=== PATIENT | female | born 1955 | race Caucasian/White ===

== ENCOUNTER 2017-05-18 17:44 | Inpatient (IN) | payer BC ==
[2017-05-18] MEDS ORDERED: ASPIRIN 81 MG CHEW PO STA (18:05)
[2017-05-18] MEDS ORDERED: ONDANSETRON 4 MG/2 ML VIAL IVP STA (18:09)
[2017-05-18] MEDS ORDERED: MORPHINE SULFATE 4 MG/ML SYRINGE IV STA (18:09)
[2017-05-18 19:03] LABS: ALT 29 U/L (9-52); AST 26 U/L (14-36); Alkaline Phosphatase 143 U/L (38-126); Anion Gap 9 mmol/L; Blood Urea Nitrogen 13 mg/dL (7-17); Carbon Dioxide 27 mmol/L (22-30); Chloride 100 mmol/L (98-107); Glucose 106 mg/dL (74-99); Magnesium 1.8 mg/dL (1.6-2.3); Non-African American GFR(MDRD) >60 (>60 ml/min/1.73 sqM); Potassium 3.7 mmol/L (3.5-5.1); Sodium 136 mmol/L (137-145); Total Bilirubin 0.8 mg/dL (0.2-1.3); Total Protein 7.6 g/dL (6.3-8.2)
[2017-05-18 19:05] LABS: INR 1.2 (<1.2); Partial Thromboplastin Time 25.1 sec (22.0-30.0); Prothrombin Time 11.7 sec (9.0-12.0)
[2017-05-18 19:14] LABS: Basophils # (A) 0.1 k/uL (0-0.2); Basophils % (A) 1 %; CH 33.1; CHCM 33.1; Eosinophils # (A) 0.1 k/uL (0-0.7); Eosinophils % (A) 1 %; HCT 48.5 % (34.0-46.0); HDW 2.86; HGB 15.9 gm/dL (11.4-16.0); Luc # (Auto) 0.34; Luc % (Auto) 3; Lymphocytes # (A) 3.1 k/uL (1.0-4.8); Lymphocytes % (A) 24 %; MCH 33.1 pg (25.0-35.0); MCHC 32.9 g/dL (31.0-37.0); MCV 100.6 fL (80.0-100.0); Macrocytosis Slight; Monocytes # (A) 0.7 k/uL (0-1.0); Monocytes % (A) 5 %; Neutrophils # (A) 8.6 k/uL (1.3-7.7); Neutrophils % (A) 67 %; RBC 4.82 m/uL (3.80-5.40); WBC (Perox) 12.48
--- NOTE | 2017-05-18 19:19 | XR ---
EXAMINATION TYPE: XR chest 3V DATE OF EXAM: 05/18/2017 COMPARISON: NONE HISTORY: Pain TECHNIQUE: Frontal and lateral views of the chest are obtained. FINDINGS: There is no focal air space opacity, pleural effusion, or pneumothorax seen. The cardiac silhouette size is within normal limits. The osseous structures are intact. IMPRESSION: No acute cardiopulmonary process.
--- NOTE | 2017-05-18 19:34 | US ---
EXAMINATION TYPE: US venous doppler duplex LE DATE OF EXAM: 05/18/2017 7:23 PM COMPARISON: NONE CLINICAL HISTORY: Pain. Right ankle swelling recent long road trip. SIDE PERFORMED: Bilateral TECHNIQUE: The lower extremity deep venous system is examined utilizing real time linear array sonog niels with graded compression, doppler sonography and color-flow sonography. VESSELS IMAGED: External Iliac Vein (EIV) Common Femoral Vein Deep Femoral Vein Greater Saphenous Vein * Femoral Vein Popliteal Vein Small Saphenous Vein * Proximal Calf Veins (* superficial vessels) FINDINGS: Grayscale, color doppler, spectral doppler imaging performed of the deep veins of the lower extremities. On the right, there are filling defects within the external iliac vein and the common femoral vein, w ith the remainder of the right-sided vessels demonstrating normal flow, compressibility, and vascular waveforms. On the left, there is normal flow, compressibility, vascular waveforms. IMPRESSION: RIGHT LOWER EXTREMITY: POSITIVE FOR DVT. LEFT LOWER EXTREMITY: NEGATIVE FOR DVT.
[2017-05-18] MEDS ORDERED: ONDANSETRON 4 MG/2 ML VIAL IVP PRN (20:43)
[2017-05-18] MEDS ORDERED: NALOXONE 0.4 MG/ML 1 ML VIAL IV PRN (20:43)
--- NOTE | 2017-05-18 20:43 | ED ---
Chest Pain HPI - General Chief Complaint: Chest Pain Stated Complaint: sent by for heart workup Time Seen by Provider: 05/18/17 18:05 Source: patient Mode of arrival: ambulatory Limitations: no limitations - History of Present Illness Initial Comments: Patient complains of chest pain. She also has right leg pain. Her symptoms have been getting worse for 2 days. Nothing makes her symptoms better or worse. She has taken no specific medication for this. She has no lightheadedness or dizziness. She has no nausea or vomiting. She has no shortness of breath. She has had no syncopal or presyncope. She has had no long plane or cards. The chest pain is substernal. It does not radiate into her. She has no nausea or vomiting. She has no dyspnea. - Related Data Home Medications Medication Instructions Recorded Confirmed ALPRAZolam [ALPRAZolam] 0.5 mg PO TID PRN 10/30/14 05/18/17 Atorvastatin [Lipitor] 10 mg PO DAILY 10/30/14 05/18/17 Celecoxib [CeleBREX] 200 mg PO DAILY 10/30/14 05/18/17 FLUoxetine HCL [FLUoxetine HCL] 40 mg PO DAILY 10/30/14 05/18/17 Folic Acid 1 mg PO DAILY 10/30/14 05/18/17 Hydrocodone/Acetaminophen 1 tab PO Q4H PRN 10/30/14 05/18/17 [Hydrocodone/Acetaminophen 10-325] Methotrexate Sodium [Methotrexate] 15 mg PO FR 10/30/14 05/18/17 Omeprazole [PriLOSEC] 20 mg PO AC-BID 10/30/14 05/18/17 amLODIPine BESYLATE [Amlodipine 10 mg PO DAILY 10/30/14 05/18/17 Besylate] Atenolol [Tenormin] 25 mg PO DAILY 05/18/17 05/18/17 Cyclobenzaprine [Flexeril] 10 mg PO HS PRN 05/18/17 05/18/17 Dicyclomine [Bentyl] 10 mg PO TID PRN 05/18/17 05/18/17 Diphenoxylate HCl/Atropine 1 tab PO BID PRN 05/18/17 05/18/17 [Lomotil 2.5-0.025 mg Tablet] Sucralfate [Carafate] 1 gm PO QID 05/18/17 05/18/17 Temazepam [Restoril] 15 mg PO HS 05/18/17 05/18/17 Allergies Allergy/AdvReac Type Severity Reaction Status Date / Time No Known Allergies Allergy Verified 05/18/17 19:41 Review of Systems ROS Statement: Those systems with pertinent positive or pertinent negative responses have been documented in the HPI. ROS Other: All systems not noted in ROS Statement are negative. EKG Findings - EKG Comments: EKG Findings:: twelve-lead EKG interpreted by me showing ventricular rate 85 bpm , normal VA interval and Galo complex, no ST elevation or depression, interpreted by me as normal sinus rhythm. Past Medical History Past Medical History: GERD/Reflux, Hyperlipidemia, Hypertension, Musculoskeletal Disorder, Rheumatoid Arthritis (RA) Additional Past Medical History / Comment(s): RA History of Any Multi-Drug Resistant Organisms: None Reported Past Surgical History: Adenoidectomy, Appendectomy, Cholecystectomy, Tonsillectomy, Tubal Ligation Additional Past Surgical History / Comment(s): COLONOSCOPY. EGD. D & C X 5. RT OVARY REMOVED Past Anesthesia/Blood Transfusion Reactions: Motion Sickness, Postoperative Nausea & Vomiting (PONV) Past Psychological History: Depression Smoking Status: Former smoker Past Alcohol Use History: None Reported Past Drug Use History: None Reported - Past Family History Mother Family Medical History: Cancer Additional Family Medical History / Comment(s): LEUKEMIA General Exam Limitations: no limitations Course Vital Signs 05/18/17 17:59 Temperature 98.8 F Pulse Rate 103 H Respiratory 18 Rate Blood Pressure 147/93 O2 Sat by Pulse 96 Oximetry Chest Pain MDM - MDM patient complains of chest pain, leg pain. Duplex of the right leg is positive for DVT. I ordered IV heparin. Patient will be admitted to the hospital. Disposition Clinical Impression: Chest pain, DVT (deep venous thrombosis) Disposition: ADMITTED IP TO THIS HOSP Condition: Fair Referrals: Romel Pham MD [Primary Care Provider] - 1-2 days Time of Disposition: 20:42
[2017-05-18] MEDS ORDERED: DIPHENOX-ATROP 2.5-0.025 MG 1 EACH TAB PO PRN (20:44)
[2017-05-18] MEDS ORDERED: DICYCLOMINE 10 MG CAP PO PRN (20:44)
[2017-05-18] MEDS ORDERED: ALPRAZolam 0.5 MG TAB PO PRN (20:44)
[2017-05-18] MEDS ORDERED: FAMOTIDINE 20 MG TAB PO ONE (21:15)
[2017-05-18] MEDS: HYDROcodone/APAP 10-325MG 1 EACH TAB PO PRN (21:59)
[2017-05-18] MEDS: FAMOTIDINE 20 MG TAB PO SCH (21:59)
[2017-05-18] MEDS: TEMAZEPAM 15 MG CAP PO SCH (21:59)
[2017-05-18] MEDS: HEPARIN SODIUM,PORCINE/D5W PMX 25,000 UNIT in DEXTROSE/WATER 1 500ML.BAG IV SCH (22:20)
[2017-05-19 01:56] VITALS: BMI 26.1
[2017-05-19] MEDS: SUCRALFATE 1 GM TAB PO SCH ×5 (02:04→21:54)
[2017-05-19] MEDS: HYDROcodone/APAP 10-325MG 1 EACH TAB PO PRN ×5 (02:07→21:54)
[2017-05-19 06:12] LABS: Basophils # (A) 0.1 k/uL (0-0.2); Basophils % (A) 1 %; CH 34.3; Eosinophils # (A) 0.1 k/uL (0-0.7); Eosinophils % (A) 1 %; HCT 35.7 % (34.0-46.0); HDW 2.85; Luc # (Auto) 0.28; Luc % (Auto) 2; Lymphocytes # (A) 3.6 k/uL (1.0-4.8); Lymphocytes % (A) 31 %; MCH 33.5 pg (25.0-35.0); MCV 101.6 fL (80.0-100.0); Macrocytosis Slight; Mean Platelet Volume 7.4; Monocytes # (A) 0.7 k/uL (0-1.0); Monocytes % (A) 6 %; Neutrophils # (A) 6.6 k/uL (1.3-7.7); Neutrophils % (A) 58 %; RBC 3.51 m/uL (3.80-5.40); RDW 15.6 % (11.5-15.5); WBC 11.5 k/uL (3.8-10.6); WBC (Perox) 12.22
[2017-05-19 06:21] LABS: Anion Gap 6 mmol/L; Blood Urea Nitrogen 11 mg/dL (7-17); Calcium 8.3 mg/dL (8.4-10.2); Carbon Dioxide 25 mmol/L (22-30); Chloride 105 mmol/L (98-107); Glucose 76 mg/dL (74-99); Non-African American GFR(MDRD) >60 (>60 ml/min/1.73 sqM); Potassium 3.7 mmol/L (3.5-5.1); Sodium 136 mmol/L (137-145)
[2017-05-19 06:23] LABS: HGB 11.8 gm/dL (11.4-16.0)
[2017-05-19] MEDS ORDERED: RX INFO: IV CONTRAST WAS GIVEN 1 EACH MISC MISCELLANE PRN ×2 (08:44→17:10)
[2017-05-19] MEDS: ATENOLOL 25 MG TAB PO SCH (08:49)
[2017-05-19] MEDS: amLODIPine 10 MG TAB PO SCH (08:50)
[2017-05-19] MEDS: FLUoxetine HCL 20 MG CAP PO SCH (08:50)
[2017-05-19] MEDS: ATORVASTATIN 10 MG TAB PO SCH (08:50)
[2017-05-19] MEDS: FOLIC ACID 1 MG TAB PO SCH (08:50)
[2017-05-19] MEDS: FAMOTIDINE 20 MG TAB PO SCH ×2 (08:52→20:26)
[2017-05-19] MEDS ORDERED: METHOTREXATE SODIUM 2.5 MG TAB PO SCH (09:00)
--- NOTE | 2017-05-19 09:03 | P.CRDCN ---
History of Present Illness Consult date: 05/19/17 Consult reason: chest pain History of present illness: 61-year-old lady with history of hypertension and rheumatoid arthritis comes to hospital with symptoms of chest pain she states that she is becoming progressively fatigued and tired and has had pleuritic-type chest pain. It is mild to moderate intensity comes on with rest and gets worse with deep breathing. She comes in and had been diagnosed with DVT of the right leg. Cardiac enzymes have been negative and EKG does not reveal acute ischemic changes. I believe patient chest chest pain may be related to pulmonary embolism hence I'm going to obtain a computed tomography scan of the chest. I will obtain a 2-D echo to assess LV function and size. Patient will either start Coumadin R one of the normal anticoagulants if he is covered. Review of Systems Constitutional: Denies chills. Denies fever. Eyes: Denies blurred vision. Denies pain. Ears, nose, mouth and throat: Denies headache. Denies sore throat. Cardiovascular: Denies chest pain. Has shortness of breath. Respiratory: Denies cough. Pleuritic chest pain Gastrointestinal: Denies abdominal pain. Denies diarrhea. Denies nausea. Denies vomiting. Musculoskeletal: Denies myalgias. Integumentary: Denies pruritus. Denies rash. Neurological: Denies numbness. Denies weakness. Psychiatric: Denies anxiety. Denies depression. Endocrine: Denies fatigue. Denies weight change. Genitourinary: Denies burning, hematuria, frequency of urination. Hematological: No anemia or excess bleeding. Past Medical History Past Medical History: GERD/Reflux, Hyperlipidemia, Hypertension, Rheumatoid Arthritis (RA) Additional Past Medical History / Comment(s): RA History of Any Multi-Drug Resistant Organisms: None Reported Past Surgical History: Adenoidectomy, Appendectomy, Cholecystectomy, Tonsillectomy, Tubal Ligation Additional Past Surgical History / Comment(s): COLONOSCOPY. EGD. D & C X 5. RT OVARY REMOVED Past Anesthesia/Blood Transfusion Reactions: Motion Sickness, Postoperative Nausea & Vomiting (PONV) Past Psychological History: Depression Smoking Status: Former smoker Past Alcohol Use History: None Reported Past Drug Use History: None Reported - Past Family History Mother Family Medical History: Cancer Additional Family Medical History / Comment(s): LEUKEMIA Medications and Allergies Home Medications Medication Instructions Recorded Confirmed Type ALPRAZolam [ALPRAZolam] 0.5 mg PO TID PRN 10/30/14 05/18/17 History Atorvastatin [Lipitor] 10 mg PO DAILY 10/30/14 05/18/17 History Celecoxib [CeleBREX] 200 mg PO DAILY 10/30/14 05/18/17 History FLUoxetine HCL [FLUoxetine HCL] 40 mg PO DAILY 10/30/14 05/18/17 History Folic Acid 1 mg PO DAILY 10/30/14 05/18/17 History Hydrocodone/Acetaminophen 1 tab PO Q4H PRN 10/30/14 05/18/17 History [Hydrocodone/Acetaminophen 10-325] Methotrexate Sodium [Methotrexate] 15 mg PO FR 10/30/14 05/18/17 History Omeprazole [PriLOSEC] 20 mg PO AC-BID 10/30/14 05/18/17 History amLODIPine BESYLATE [Amlodipine 10 mg PO DAILY 10/30/14 05/18/17 History Besylate] Atenolol [Tenormin] 25 mg PO DAILY 05/18/17 05/18/17 History Cyclobenzaprine [Flexeril] 10 mg PO HS PRN 05/18/17 05/18/17 History Dicyclomine [Bentyl] 10 mg PO TID PRN 05/18/17 05/18/17 History Diphenoxylate HCl/Atropine 1 tab PO BID PRN 05/18/17 05/18/17 History [Lomotil 2.5-0.025 mg Tablet] Sucralfate [Carafate] 1 gm PO QID 05/18/17 05/18/17 History Temazepam [Restoril] 15 mg PO HS 05/18/17 05/18/17 History Allergies Allergy/AdvReac Type Severity Reaction Status Date / Time No Known Allergies Allergy Verified 05/18/17 19:41 Physical Exam Vitals: Vital Signs Temp Pulse Pulse Resp BP BP BP 05/19/17 08:00 76 18 05/19/17 04:00 97.5 F L 76 18 131/71 05/19/17 02:20 84 18 05/19/17 01:13 84 18 136/81 05/18/17 22:22 96 18 149/92 05/18/17 21:17 96.1 F L 84 18 159/77 181/81 05/18/17 17:59 98.8 F 103 H 18 147/93 Pulse Ox 05/19/17 08:00 05/19/17 04:00 95 05/19/17 02:20 05/19/17 01:13 96 05/18/17 22:22 97 05/18/17 21:17 100 05/18/17 17:59 96 Intake and Output 05/18/17 05/19/17 05/19/17 22:59 06:59 14:59 Intake Total 406.385 Balance 406.385 Intake: Amount of Fluid Infused ( 200 ml) Intake, IV Titration 206.385 Amount Heparin Sodium,Porcine/ 206.385 D5w Pmx 25,000 unit In Dextrose/Water 1 500ml. bag @ 12 UNITS/KG/HR 18. 28 mls/hr IV .Q24H [facility] Rx #:[id number] Other: Voiding Method Toilet Toilet Weight 73.4 kg 73.4 kg General: The patient is awake and alert, in no distress, and does not appear acutely ill. Skin: Skin is warm and dry and no rashes or lesions are noted. Eye: Pupils are equal, round and reactive to light, extra-ocular movements are intact; there is normal conjunctiva bilaterally. Ears, nose, mouth and throat: There are moist mucous membranes and no oral lesions. Neck: The neck is supple, there is no tenderness or JVD. Cardiovascular: There is a regular rate and rhythm. No murmur, rub or gallop is appreciated. Respiratory: Lungs are clear to auscultation, respirations are non-labored, breath sounds are equal. Gastrointestinal: Soft, non-distended, non-tender abdomen without masses or organomegaly noted. There is no rebound or guarding present. Bowel sounds are unremarkable. Back: There is no tenderness to palpation in the midline. There is no obvious deformity. Musculoskeletal: Normal ROM, no tenderness, There is no pedal edema. There is no calf tenderness or swelling. Extremities: No edema. Vascular: Femoral pulse is normal. Posterior tibial pulses are normal .Dorsalis pedis is palpable. Neurological: CN II-XII intact. There are no obvious motor or sensory deficits. Speech is normal. Psychiatric: Cooperative, appropriate mood & affect, normal judgment. Results 05/19/17 05:30 05/19/17 05:30 Cardiac Enzymes 0905/18/17 05/19/17 Range/Units 18:35 18:35 02:10 AST 26 (14-36) U/L Troponin I <0.012 <0.012 (0.000-0.034) ng/mL 05/19/17 Range/Units 05:30 AST (14-36) U/L Troponin I <0.012 (0.000-0.034) ng/mL Coagulation 05/18/17 05/19/17 Range/Units 18:35 05:30 PT 11.7 (9.0-12.0) sec APTT 25.1 53.4 H (22.0-30.0) sec CBC 05/18/17 05/19/17 Range/Units 18:35 05:30 WBC 13.0 H 11.5 H (3.8-10.6) k/uL RBC 4.82 3.51 L (3.80-5.40) m/uL Hgb 15.9 11.8 D (11.4-16.0) gm/dL Hct 48.5 H 35.7 (34.0-46.0) % Plt Count 257 256 (150-450) k/uL Comprehensive Metabolic Panel 05/18/17 05/19/17 Range/Units 18:35 05:30 Sodium 136 L 136 L (137-145) mmol/L Potassium 3.7 3.7 (3.5-5.1) mmol/L Chloride 100 105 (98-107) mmol/L Carbon Dioxide 27 25 (22-30) mmol/L BUN 13 11 (7-17) mg/dL Creatinine 0.87 0.70 (0.52-1.04) mg/dL Glucose 106 H 76 (74-99) mg/dL Calcium 9.0 8.3 L (8.4-10.2) mg/dL AST 26 (14-36) U/L ALT 29 (9-52) U/L Alkaline Phosphatase 143 H (38-126) U/L Total Protein 7.6 (6.3-8.2) g/dL Albumin 3.6 (3.5-5.0) g/dL Current Medications Generic Name Dose Route Start Last Admin Trade Name Freq PRN Reason Stop Dose Admin Hydrocodone Bitart/Acetaminophen 1 each 05/18/17 20:44 05/19/17 06:44 [place] 10 PO 1 each Q4H PRN Administration Pain Alprazolam 0.5 mg 05/18/17 20:44 Xanax PO TID PRN Anxiety Amlodipine Besylate 10 mg 05/19/17 09:00 05/19/17 08:50 Norvasc PO 10 mg DAILY KATHRIN Administration Atenolol 25 mg 05/19/17 09:00 05/19/17 08:49 Tenormin PO 25 mg DAILY KATHRIN Administration Atorvastatin Calcium 10 mg 05/19/17 09:00 05/19/17 08:50 Lipitor PO 10 mg DAILY KATHRIN Administration Dicyclomine HCl 10 mg 05/18/17 20:44 Bentyl PO TID PRN IBS Diphenoxylate HCl/Atropine 1 each 05/18/17 20:44 Lomotil PO BID PRN Diarrhea Famotidine 20 mg 05/18/17 21:00 05/19/17 08:52 Pepcid PO 20 mg BID KATHRIN Administration Fluoxetine HCl 40 mg 05/19/17 09:00 05/19/17 08:50 Prozac PO 40 mg DAILY KATHRIN Administration Folic Acid 1 mg 05/19/17 09:00 05/19/17 08:50 Folic Acid PO 1 mg DAILY KATHRIN Administration Heparin Sodium/Dextrose 25,000 500 mls @ 18.28 mls/hr 05/18/17 20:45 06:37 unit/ IV Solution IV 12 units/kg/hr .Q24H [facility] 18.3 mls/hr Protocol Titration 12 UNITS/KG/HR Methotrexate 15 mg 05/19/17 09:00 05/19/17 08:50 Methotrexate PO 15 mg Fr@0900 KATHRIN Administration Miscellaneous Information 1 each 05/19/17 08:44 Rx Info: Iv Contrast Was Given MISCELLANE 05/21/17 08:45 DAILY PRN Per Protocol Naloxone HCl 0.2 mg 05/18/17 20:43 Narcan IV Q2M PRN Opioid Reversal Ondansetron HCl 4 mg 05/18/17 20:43 Zofran IVP Q8HR PRN Nausea And Vomiting Sucralfate 1 gm 05/18/17 22:00 05/19/17 08:50 Carafate PO 1 gm QID KATHRIN Administration Temazepam 15 mg 05/18/17 21:00 05/18/17 21:59 Restoril PO 15 mg HS KATHRIN Administration Intake and Output 05/18/17 05/19/17 05/19/17 22:59 06:59 14:59 Intake Total 406.385 Balance 406.385 Intake: Amount of Fluid Infused ( 200 ml) Intake, IV Titration 206.385 Amount Heparin Sodium,Porcine/ 206.385 D5w Pmx 25,000 unit In Dextrose/Water 1 500ml. bag @ 12 UNITS/KG/HR 18. 28 mls/hr IV .Q24H [facility] Rx #:[id number] Other: Voiding Method Toilet Toilet Weight 73.4 kg 73.4 kg 05/19/17 05:30 05/19/17 05:30 Assessment and Plan Plan: Pleuritic chest pain rule out pulmonary embolism Right leg DVT I'm going to obtain a 2-D echo computed tomography scan of the chest continue the IV heparin and decide on long-term anticoagulation based on insurance coverage
--- NOTE | 2017-05-19 09:44 | CT ---
EXAMINATION TYPE: CT angio chest DATE OF EXAM: 05/19/2017 COMPARISON: NONE HISTORY: chest pressure that worsens with inspirations, recent dx of DVT. CT DLP: 227.6 mGycm CONTRAST: CT chest with contrast and 3D reconstruction with MIP imaging is performed with IV Contrast, patient injected with 80 mL of Omnipaque 350. Contrast-enhanced CT of the chest was performed through the course of the pulmonary arteries with vishnu g and mediastinal window settings submitted. 3D reconstruction with MIP imaging was also performed. PULMONARY ARTERIES: Mild Pulmonary embolism is noted within lower lobe pulmonary secondary and tertia ry arterial branches right greater than left. There is no evidence for large central component or sag ittal component. LUNGS: The lungs are clear and free of infiltrate. No pulmonary nodule or mass is detected. Small lef t effusion is noted with minimal left basilar compressive atelectasis. MEDIASTINUM: Thoracic aorta is of normal caliber . The heart is mildly enlarged. No evidence for me diastinal mass. No mediastinal lymph nodes greater than 1cm. HILAR STRUCTURES: No evidence for mass. No hilar lymph nodes greater than 1 cm. UPPER ABDOMEN: No significant abnormality is seen. IMPRESSION: 1. Mild Pulmonary embolism is noted within lower lobe pulmonary secondary and tertiary arterial bran ches right greater than left.
[2017-05-19] MEDS: HEPARIN SODIUM,PORCINE/D5W PMX 25,000 UNIT in DEXTROSE/WATER 1 500ML.BAG IV SCH (17:57)
--- NOTE | 2017-05-19 17:59 | ECHOF ---
Referral Reason:chest pain, DVT MEASUREMENTS -------- HEIGHT: 167.6 cm WEIGHT: 73.0 kg BP: 131/71 RVIDd: 2.6 cm (< 3.3) IVSd: 1.0 cm (0.6 - 1.1) LVIDd: 3.9 cm (3.9 - 5.3) LVPWd: 1.0 cm (0.6 - 1.1) IVSs: 1.5 cm LVIDs: 2.5 cm LVPWs: 1.2 cm LA Diam: 2.2 cm (2.7 - 3.8) LAESV Index (A-L): 18.24 ml/m Ao Diam: 3.2 cm (2.0 - 3.7) AV Cusp: 2.2 cm (1.5 - 2.6) MV EXCURSION: 13.536 mm (> 18.000) MV EF SLOPE: 28 mm/s (70 - 150) EPSS: 0.2 cm MV E Michele: 0.64 m/s MV DecT: 434 ms MV A Michele: 0.95 m/s MV E/A Ratio: 0.68 RAP: 5.00 mmHg RVSP: 26.68 mmHg FINDINGS -------- Sinus rhythm. This was a technically adequate study. The left ventricular size is normal. Left ventricular wall thickness is normal. Overall left ventricular systolic function is normal with, an EF between 60 - 65 %. The right ventricle is normal in size. Normal LA size by volume 22+/-6 ml/m2. The right atrium is normal in size. The aortic valve is trileaflet and appears structurally normal. The mitral valve is normal. Mild tricuspid regurgitation present. Right ventricular systolic pressure is normal at < 35 mmHg. There is no pulmonic regurgitation present. The aortic root size is normal. Normal inferior vena cava with normal inspiratory collapse consistent with estimated right atrial pressure of 5 mmHg. Echo free space may represent effusion or a pericardial fat pad. CONCLUSIONS -------- 1. Sinus rhythm. 2. The mitral valve is normal. 3. Mild tricuspid regurgitation present. 4. Right ventricular systolic pressure is normal at < 35 mmHg. 5. There is no pulmonic regurgitation present. 6. The aortic root size is normal. 7. Normal inferior vena cava with normal inspiratory collapse consistent with estimated right atrial pressure of 5 mmHg. 8. Echo free space may represent effusion or a pericardial fat pad. 9. This was a technically adequate study. 10. The left ventricular size is normal. 11. Left ventricular wall thickness is normal. 12. Overall left ventricular systolic function is normal with, an EF between 60 - 65 %. 13. The right ventricle is normal in size. 14. Normal LA size by volume 22+/-6 ml/m2. 15. The right atrium is normal in size. 16. The aortic valve is trileaflet and appears structurally normal. PCTS: Beth Chavez RDCS
[2017-05-19] MEDS: TEMAZEPAM 15 MG CAP PO SCH (20:26)
[2017-05-20] MEDS: HYDROcodone/APAP 10-325MG 1 EACH TAB PO PRN ×4 (06:18→22:11)
[2017-05-20 06:38] LABS: Anion Gap 7 mmol/L; Blood Urea Nitrogen 10 mg/dL (7-17); Calcium 8.5 mg/dL (8.4-10.2); Carbon Dioxide 24 mmol/L (22-30); Chloride 106 mmol/L (98-107); Glucose 85 mg/dL (74-99); Non-African American GFR(MDRD) >60 (>60 ml/min/1.73 sqM); Sodium 137 mmol/L (137-145)
[2017-05-20] MEDS: ATENOLOL 25 MG TAB PO SCH (08:37)
[2017-05-20] MEDS: FAMOTIDINE 20 MG TAB PO SCH ×2 (08:37→20:54)
[2017-05-20] MEDS: FLUoxetine HCL 20 MG CAP PO SCH (08:37)
[2017-05-20] MEDS: FOLIC ACID 1 MG TAB PO SCH (08:37)
[2017-05-20] MEDS: ATORVASTATIN 10 MG TAB PO SCH (08:37)
[2017-05-20] MEDS: amLODIPine 10 MG TAB PO SCH (08:37)
[2017-05-20] MEDS: RIVAROXABAN 15 MG TAB PO SCH ×2 (08:37→18:48)
[2017-05-20] MEDS: SUCRALFATE 1 GM TAB PO SCH ×4 (08:56→22:13)
[2017-05-20] MEDS: IOHEXOL 350 MG/ML 25 ML BOTTLE (ORAL USE) PO PRN ×2 (10:18→11:19)
--- NOTE | 2017-05-20 10:18 | HP ---
HISTORY AND PHYSICAL DATE OF ADMISSION: 05/18/2017. PRESENTING COMPLAINT: Short of breath. HISTORY OF PRESENT ILLNESS: This is a very pleasant, 61-year-old patient of Dr. Ankit Humphreys saw this morning. The patient's chronic stable medical conditions include GERD, hyperlipidemia, hypertension, rheumatoid arthritis. Two days ago patient developed some left lateral chest wall pain and noticed that she has become short of breath and every time she will take a deep breath it hurts. Also noticed some right leg swelling. A weak ago patient had been in a car drive for about 5 hours though did take a break. No prior history of DVT. The patient was discovered to have a DVT in the right lower extremity. Put on IV heparin and admitted for the same. REVIEW OF SYSTEMS: CONSTITUTIONAL: Tired. HEENT: None. RESPIRATORY: As above. CARDIOVASCULAR: No precordial pain. GASTROINTESTINAL: None. GENITOURINARY: None. MUSCULOSKELETAL: Some arthritic pain in the joints. DERMATOLOGICAL: None. HEMATOLOGIC: None. LYMPHATIC: None. PSYCHIATRY: None. NEUROLOGICAL: None. PAST HISTORY: GERD, hyperlipidemia, hypertension and rheumatoid arthritis. PAST SURGICAL HISTORY: Adenoidectomy, appendectomy, cholecystectomy, tonsillectomy, tubal ligation, colonoscopy, D and C, right ovary removed. PAST PSYCH HISTORY: Depression. SOCIAL HISTORY: Patient did smoke in the past. . No alcohol. FAMILY HISTORY: Leukemia. HOME MEDICATIONS: 1. Restoril 15 mg p.o. q.h.s. 2. Methotrexate 15 mg on Fridays. 3. Flexeril 10 mg p.o. q.h.s. p.r.n. 4. Tenormin 25 mg a day. 5. Lomotil 1 tablet b.i.d. p.r.n. 6. Carafate 1 g p.o. q.i.d. 7. Bentyl 10 mg p.o. t.i.d. p.r.n. 8. Amlodipine 10 mg p.o. daily. 9. Prilosec 20 mg a.c. b.i.d. 10.Pantego 10 1 tab q.4h p.r.n. 11.Folic acid 1 mg p.o. daily. 12.Prozac 40 mg p.o. daily. 13.Celebrex 200 mg p.o. daily. 14.Lipitor 10 mg p.o. daily. 15.Xanax 0.5 mg p.o. t.i.d. p.r.n. ALLERGIES: None. EXAMINATION: Vital signs on presentation: Temperature 98.8, pulse 103, respiratory rate 18, blood pressure 147/93, pulse ox of 96% on room air. GENERAL APPEARANCE: Average build, sitting up, not in distress. EYES: Pupils equal. Conjunctivae normal. HEENT: Oral cavity normal. NECK: JVD not raised. Mass not palpable. RESPIRATORY: Effort normal. lungs are clear. CARDIOVASCULAR: First and second sounds normal. No edema. ABDOMEN: Soft, nontender. Liver and spleen not palpable. LYMPHATIC: No lymph nodes palpable in the neck or axillae. PSYCHIATRIC: Alert and oriented x3. Mood and affect normal. NEUROLOGICAL: Pupils equal. Cranial nerves grossly intact. Power and sensation grossly intact. INVESTIGATIONS: White count 13, hemoglobin 15.9, potassium 3.7. BUN and creatinine normal. Troponin x3 negative. Doppler of the extremity on the right leg shows filling defect within the external iliac and common femoral vein. The remainder of the right-sided vessels demonstrate normal flow. Chest CTA: Pulmonary embolism in the left lower lobe. ASSESSMENT: 1. Acute deep venous thrombosis in the external iliac vein and common femoral vein and acute pulmonary embolism in a patient who did do a [address] about a week ago. 2. Gastroesophageal reflux disease. 3. Hyperlipidemia. 4. Essential hypertension. 5. Chronic rheumatoid arthritis. 6. Depression, not otherwise specified. PLAN: Patient is currently on IV heparin. Xarelto coverage is being checked. Will continue for 24 hours until the patient's symptoms are better. Care was discussed with the patient and daughter at bedside. Questions were all answered. We will also order Dion stockings on both legs. MMODL / IJN: [id number] /
--- NOTE | 2017-05-20 10:54 | P.PN ---
Subjective This is a pleasant 61-year-old lady with a history of hypertension and rheumatoid arthritis. She presented to the emergency department with complaints of chest discomfort and right lower extremity pain. She was becoming progressively fatigued and tired and has pleuritic type chest pain. She was found to be positive for DVT of her right leg. Cardiac enzymes are negative and EKG do not result real acute ischemic changes. She underwent CTA of the chest that was positive for PE. 2-D echo with Doppler was done showed normal RV and normal LV systolic function with an ejection fraction of 60-65%. She has been on heparin drip. Upon examination this morning, patient is sitting up in a chair. She denies further complaints of chest discomfort. Objective - Vital Signs Vital signs: Vital Signs Temp 97.8 F 05/20/17 08:00 Pulse 85 05/20/17 08:00 Resp 18 05/20/17 08:00 BP 126/67 05/20/17 08:00 Pulse Ox 98 05/20/17 08:00 Intake & Output 05/19/17 05/20/17 05/20/17 18:59 06:59 18:59 Intake Total 627.4 250 260 Output Total 300 Balance 627.4 -50 260 Weight 74.2 kg Intake: Intake, IV Titration 207.4 Amount Heparin Sodium,Porcine/ 207.4 D5w Pmx 25,000 unit In Dextrose/Water 1 500ml. bag @ 12 UNITS/KG/HR 18. 28 mls/hr IV .Q24H PENDING SALE TO [facility] Rx #:[id number] Oral 420 250 260 Output: Urine 300 Other: Voiding Method Toilet Toilet Toilet # Voids 2 1 - Exam PHYSICAL EXAMINATION: HEENT: Head is atraumatic, normocephalic. Pupils equal, round. Neck is supple. There is no elevated jugular venous pressure. HEART EXAMINATION: Heart sounds regular, S1 and S2 normal. No murmur or gallop heard. CHEST EXAMINATION: Lungs are clear to auscultation and precussion. No chest wall tenderness is noted on palpation or with deep breathing. ABDOMEN: Soft, nontender. Bowel sounds are heard. No organomegaly noted. EXTREMITIES: 2+ peripheral pulses with no evidence of peripheral edema and no calf tenderness noted. NEUROLOGIC patient is awake, alert and oriented x3. . - Labs CBC & Chem 7: 05/19/17 05:30 05/20/17 06:04 Labs: Abnormal Lab Results - Last 24 Hours (Table) 05/20/17 Range/Units 06:04 APTT 47.4 H (22.0-30.0) sec Assessment and Plan Plan: Assessment and plan #1 PE #2 right leg DVT #3 hypertension #4 rheumatoid arthritis From cardiology perspective, we will start heparin drip and start the patient on Xarelto 15 mg by mouth twice a day which she will be on for a total of 21 days. Following that she'll take 20 mg by mouth daily. The above dictated assessment and findings were discussed with signing physician. The impression and plan of care have been directed as dictated. Ignacia Brooke, Nurse Practitioner, acting as scribe for signing physician.
--- NOTE | 2017-05-20 12:24 | CT ---
EXAMINATION TYPE: CT abdomen pelvis w con DATE OF EXAM: 05/20/2017 REFERENCE: NONE HISTORY: PE/r/o malignancy HISTORY: H/O CVT and PE REFERENCE: NONE CT DLP: 691.3 mGy Automated exposure control for dose reduction was used. TECHNIQUE: Helical acquisition through the abdomen and pelvis was obtained following the oral ingesti on of with Oral Contrast and following intravenous administration of 100 mL of Omnipaque 300. The huyen a was reformatted in axial, coronal and sagittal projections. FINDINGS: There is some linear scarring or atelectasis in the right middle lobe. There is a tiny lef t pleural effusion and a small amount of atelectasis or consolidation at the left lung base. The hear t is mildly enlarged. There is no pericardial fluid Within the abdomen, the gallbladder is been removed. The liver and spleen are normal. Both adrenal glands are normal. Both kidneys demonstrate function and are morphologically normal. The pancreas is somewhat atrophic. There is extensive vascular calcification. There is no significant retroperitoneal, iliac or inguinal adenopathy. The bladder is unremarkable. The uterus and ovaries appear normal. There is no significant diverticular change and there is no radiographic evidence of diverticulitis. The appendix is not visualized. Visualized small bowel loops appear normal. There is degenerative disc disease at L4-5. There is mild facet arthropathy. IMPRESSION: 1. TINY LEFT PLEURAL EFFUSION WITH A SMALL AMOUNT OF ASSOCIATED ATELECTASIS OR CONSOLIDATION. 2. CARDIOMEGALY. 3. MINIMAL DEGENERATIVE CHANGE WITHIN THE SPINE.
--- NOTE | 2017-05-20 13:23 | P.PN ---
Progress Note - Text DATE OF SERVICE: 05/20/2017 PRESENTING COMPLAINT: Short of breath HISTORY OF PRESENT ILLNESS: 61-year-old female presented with shortness of breath and pain on deep inspiration. Right leg was swollen. Recently took a 5 hour car trip. Positive for DVT in the right lower extremity and mild pulmonary embolism and lower lobe right greater than left. INTERVAL HISTORY: 05/20/2017: Patient sitting up in a chair, appears comfortable, heparin drip off, started on Xarelto per cardiology. No further pain on deep inspiration. Tolerating her diet, ambulatory in the room and plasencia, going for CT of abdomen and pelvis. REVIEW OF SYSTEMS: Done for constitutional ,cardiovascular, GI, pulmonary with relevant findings as above. CURRENT MEDICATIONS [place], Xanax, Norvasc 10 mg by mouth daily, atenolol 25 mg by mouth daily, Lipitor 10 mg by mouth daily, Bentyl 10 mg by mouth 3 times a day, Prozac 40 mg by mouth daily, methotrexate 15 mg by mouth, Xarelto 15 mg by mouth twice a day Carafate 1 g by mouth 4 times a day, Restoril 15 mg by mouth at bedtime. PHYSICAL EXAM VITAL SIGNS: Temperature 97.8, pulse 85, respiratory rate 18, blood pressure 126/67, oxygen saturation 98% on room air. GENERAL APPEARANCE: Sitting up in a chair, not in distress. EYES: Pupils equal. Conjunctiva normal. NECK: JVD not raised. Mass not palpable. RESPIRATORY: Respiratory effort normal. Lungs clear to auscultation. CARDIOVASCULAR: First and second sounds normal. No edema. ABDOMEN: Soft. Liver and spleen not palpable. No tenderness. No mass palpable. PSYCHIATRY: Alert and oriented x3. Mood and affect normal. INVESTIGATIONS: White blood cell count 11.5, sodium 136, potassium 3.7, calcium 8.3. CT of the abdomen and pelvis with contrast: Tiny left pleural effusion small amount of associated atelectasis ASSESSMENT: -Acute deep vein thrombosis and external iliac vein and common femoral vein and acute pulmonary embolism in a patient who did do a 5 Hour Car trip about a week ago. -Gastroesophageal reflux disease. -Hyperlipidemia. -Essential hypertension. -Chronic rheumatoid arthritis. -Depression not otherwise specified. PLAN: Heparin drip stopped. Xarelto initiated by cardiology, Symptoms improving. We 'll monitor for another 24 hours with discharge planning for tomorrow. Plan of care discussed with the patient she is in agreement. [employer] statement: Patient was seen and examined by nurse practitioner Merced Jefferson and all elements of the case discussed with attending Dr. Powell
[2017-05-20] MEDS: TEMAZEPAM 15 MG CAP PO SCH (22:53)
[2017-05-21 06:36] LABS: Anion Gap 6 mmol/L; Blood Urea Nitrogen 8 mg/dL (7-17); Calcium 8.7 mg/dL (8.4-10.2); Carbon Dioxide 23 mmol/L (22-30); Chloride 107 mmol/L (98-107); Glucose 77 mg/dL (74-99); Non-African American GFR(MDRD) >60 (>60 ml/min/1.73 sqM); Potassium 3.8 mmol/L (3.5-5.1); Sodium 136 mmol/L (137-145)
[2017-05-21] MEDS: RIVAROXABAN 15 MG TAB PO SCH (06:59)
[2017-05-21] MEDS: SUCRALFATE 1 GM TAB PO SCH (07:39)
[2017-05-21] MEDS: ATENOLOL 25 MG TAB PO SCH (07:40)
[2017-05-21] MEDS: ATORVASTATIN 10 MG TAB PO SCH (07:40)
[2017-05-21] MEDS: amLODIPine 10 MG TAB PO SCH (07:40)
[2017-05-21] MEDS: FOLIC ACID 1 MG TAB PO SCH (07:40)
[2017-05-21] MEDS: FAMOTIDINE 20 MG TAB PO SCH (07:40)
[2017-05-21] MEDS: FLUoxetine HCL 20 MG CAP PO SCH (07:40)
[2017-05-21] MEDS: HYDROcodone/APAP 10-325MG 1 EACH TAB PO PRN (10:38)
--- NOTE | 2017-05-21 10:46 | PN ---
PROGRESS NOTE DATE OF SERVICE: May 20, 2017. ATTENDING NOTE: This patient seen and examined by me. I discussed with my nurse practitioner Ms. Jefferson. Admitted with PE. Breathing is much better. Up to the bathroom. Started on Xarelto. PHYSICAL EXAMINATION: On examination, lungs fair air entry. Cardiovascular first and second sounds normal. Patient is comfortable at rest. Potassium 4.00. ASSESSMENT: Acute deep vein thrombosis and pulmonary embolism. IV heparin discontinued. Patient put on Xarelto. Cardiology would like to observe the patient for the next 24 hours. Encouraged to walk about and see how she does. Care was discussed with patient. MMODL / IJN: [id number] /
[2017-05-21 11:13] VITALS: BP 110/71; PULSE 62; RESP 18; TEMP 97
--- NOTE | 2017-05-21 12:12 | P.PN ---
Progress Note - Text Patient is doing well denies chest pain or difficulty in breathing she is an anticoagulant tolerating it well free of symptoms On exam patient is comfortable at rest vital signs are stable there is a jugular venous distention chest exam reveals good air entry bilaterally heart exam reveals first and second heart sounds no gallop no murmur no rub exam extremities did not reveal any edema per for pulses are felt Assessment and plan: Acute pulmonary embolism secondary to DVT Patient is stable to be discharged home and will follow her in the outpatient setting
--- NOTE | 2017-05-21 18:14 | P.DS ---
Providers Date of admission: 05/18/17 20:43 Expected date of discharge: 05/21/17 Attending physician: Harsh Powell Consults: 05/18/17 20:44 Consult Physician Routine Consulting Provider: Adrien Kennedy Consult Reason/Comments: chest pain Do you want consulting provider notified?: Yes Primary care physician: [facility] Course: FINAL DIAGNOSES: -Acute deep vein thrombosis and external iliac vein and common femoral vein and acute pulmonary embolism in a patient who did do a 5 Hour Car trip about a week ago. -Gastroesophageal reflux disease. -Hyperlipidemia. -Essential hypertension. -Chronic rheumatoid arthritis. -Depression not otherwise specified HOSPTIAL COURSE: 61-year-old female presented with shortness of breath and chest pain with pain on deep inspiration. Right leg was swollen. Recently took a 5 hour car trip. Diagnostic imaging revealed DVT in the right lower extremity and pulmonary embolism in the right lower lobe right greater than left admitted for the same. Cardiology consulted, heparin drip started, echocardiogram, chest CTA, CT of the abdomen and pelvis all completed. Patient appropriate candidate for Xarelto therapy, covered by insurance this was initiated heparin drip stopped. No further episodes of pain on inspiration or shortness of breath, no bleeding noted with either heparin therapy or initiation of Xarelto . Patient ambulatory in the room and hallway, tolerating her diet eating between 50% and 75% of every meal, last BM 05/21/2017. Condition stabilized and cleared from a cardiology standpoint as well as a medicine standpoint patient is stable for discharge. Patient advised to wear compression stockings and provided same to her. Patient verbalized understanding. PHYSICAL EXAM: CARDIOVASCULAR: First and second sound noted, no edema RESPIRATORY: Effort normal, lungs fair air entry bilaterally. Patient was seen and examined by nurse practitioner Merced Jefferson in all elements of the case discussed with attending Dr. Powell DISPOSITION: Home to the care of her . Patient Condition at Discharge: Fair Plan - Discharge Summary New Discharge Prescriptions: New Rivaroxaban [Xarelto] 15 mg PO BID-W/MEALS #40 tab Continue Folic Acid 1 mg PO DAILY Omeprazole [PriLOSEC] 20 mg PO AC-BID Atorvastatin [Lipitor] 10 mg PO DAILY amLODIPine BESYLATE [Amlodipine Besylate] 10 mg PO DAILY Methotrexate Sodium [Methotrexate] 15 mg PO FR Hydrocodone/Acetaminophen [Hydrocodone/Acetaminophen 10-325] 1 tab PO Q4H PRN PRN Reason: Pain FLUoxetine HCL 40 mg PO DAILY ALPRAZolam 0.5 mg PO TID PRN PRN Reason: Anxiety Atenolol [Tenormin] 25 mg PO DAILY Temazepam [Restoril] 15 mg PO HS Diphenoxylate HCl/Atropine [Lomotil 2.5-0.025 mg Tablet] 1 tab PO BID PRN PRN Reason: Diarrhea Cyclobenzaprine [Flexeril] 10 mg PO HS PRN PRN Reason: Muscle Spasm Dicyclomine [Bentyl] 10 mg PO TID PRN PRN Reason: IBS Discontinued Celecoxib [CeleBREX] 200 mg PO DAILY Sucralfate [Carafate] 1 gm PO QID Discharge Medication List ALPRAZolam 0.5 mg PO TID PRN 10/30/14 [History] Atorvastatin [Lipitor] 10 mg PO DAILY 10/30/14 [History] FLUoxetine HCL 40 mg PO DAILY 10/30/14 [History] Folic Acid 1 mg PO DAILY 10/30/14 [History] Hydrocodone/Acetaminophen [Hydrocodone/Acetaminophen 10-325] 1 tab PO Q4H PRN [History] Methotrexate Sodium [Methotrexate] 15 mg PO FR 10/30/14 [History] Omeprazole [PriLOSEC] 20 mg PO AC-BID 10/30/14 [History] amLODIPine BESYLATE [Amlodipine Besylate] 10 mg PO DAILY 10/30/14 [History] Atenolol [Tenormin] 25 mg PO DAILY 05/18/17 [History] Cyclobenzaprine [Flexeril] 10 mg PO HS PRN 05/18/17 [History] Dicyclomine [Bentyl] 10 mg PO TID PRN 05/18/17 [History] Diphenoxylate HCl/Atropine [Lomotil 2.5-0.025 mg Tablet] 1 tab PO BID PRN [History] Temazepam [Restoril] 15 mg PO HS 05/18/17 [History] Rivaroxaban [Xarelto] 15 mg PO BID-W/MEALS #40 tab 05/21/17 [Rx] Follow up Appointment(s)/Referral(s): Adrien Kennedy MD [STAFF PHYSICIAN] - 2 Weeks (OFFICES ARE CLOSED I AM UNABLE TO MAKE AN APPOINTMENT AT THIS TIME. PLEASE CALL MONDAY TO MAKE A FOLLOWUP APPOINTMENT.) Romel Pham MD [Primary Care Provider] - 1-2 days (OFFICES ARE CLOSED I AM UNABLE TO MAKE AN APPOINTMENT AT THIS TIME. PLEASE CALL MONDAY TO MAKE A FOLLOWUP APPOINTMENT.) Ambulatory/Diagnostic Orders: Complete Blood Count w/diff [LAB.AMB] Time Frame: 1 Week, Location: Determined By Patient Patient Instructions/Handouts: Pulmonary Embolism (DC), Deep Venous Thrombosis (DC), Safe Use of Anticoagulants (DC) Activity/Diet/Wound Care/Special Instructions: Free 30 day supply of Xarelto filled in [facility] pharmacy Discharge Disposition: HOME SELF-CARE
--- NOTE | 2017-05-23 14:18 | DS ---
DISCHARGE SUMMARY DATE OF SERVICE: 05/21/2017 ADDENDUM DISCHARGE SUMMARY ATTENDING NOTE: This patient was seen and examined by me on 05/21/17. I discussed with my WEALTH MANAGEMENT CONSULTANT, Ms. Jefferson. Patient is doing well, up and about in the hallway. No shortness of breath. No chest pain. Lungs are clear. CARDIOVASCULAR: First and second sounds are normal. The patient to be discharged on Xarelto. Care was discussed. Questions were answered. Medications were discussed. Follow up is arranged. MMODL / IJN: [id number] /
== END 2017-05-21 12:19 | disposition home or self-care (01) | DRG 299 ==
LOC: EC 17:44 → 6SEL 20:43
PROVIDERS: ADMIT Hospitalist; ATTEND Hospitalist
DX: I82.421 Acute embolism and thrombosis of right iliac vein (principal); I26.99 Other pulmonary embolism without acute cor pulmonale; I10 Essential (primary) hypertension; I82.411 Acute embolism and thrombosis of right femoral vein; E78.5 Hyperlipidemia, unspecified; F32.9 Major depressive disorder, single episode, unspecified; K21.9 Gastro-esophageal reflux disease without esophagitis; M06.9 Rheumatoid arthritis, unspecified; Z79.899 Other long term (current) drug therapy; Z80.6 Family history of leukemia; Z87.891 Personal history of nicotine dependence
CPT/HCPCS: 36415; 71020; 71275; 74177; 80048; 80053; 83690; 83735; 83880; 84484; 85025; 85610; 85730; 93005; 93306; 93970; 96365; 96366; 99285

== ENCOUNTER 2018-03-30 11:22 | Inpatient (IN) | payer BC ==
[2018-03-30] MEDS ORDERED: ONDANSETRON 4 MG/2 ML VIAL IVP STA (12:25)
[2018-03-30] MEDS ORDERED: NALOXONE 0.4 MG/ML 1 ML VIAL IV PRN ×2 (12:28→14:26)
[2018-03-30] MEDS ORDERED: ONDANSETRON 4 MG/2 ML VIAL IVP PRN (12:28)
--- NOTE | 2018-03-30 12:28 | ED ---
General Adult HPI - General Chief complaint: Altered Mental Status Stated complaint: Altered Mental Status Time Seen by Provider: 03/30/18 11:52 Source: patient, family, RN/MD, EMS, RN notes reviewed, old records reviewed ( Report reviewed from [facility], including normal reported head CT and hypokalemia and elevated lactic acid.) Mode of arrival: EMS Limitations: no limitations - History of Present Illness Initial comments: Patient is a pleasant 62-year-old female presenting to the emergency Department as a transfer from [facility]. Patient was transferred for neurology evaluation. Patient does have history of PE and is on Xarelto. Patient has had nausea and vomiting since yesterday. PATIENT does not have memory of yesterday. Patient does not recall going to [facility] this morning. This morning patient was reportedly not oriented to year however she is at this time. Patient denies any headache. Patient does not feel confused. Patient states it is disturbing that she does not remember these events however. - Related Data Home Medications Medication Instructions Recorded Confirmed ALPRAZolam 0.5 mg PO TID PRN 10/30/14 05/18/17 Atorvastatin [Lipitor] 10 mg PO DAILY 10/30/14 05/18/17 FLUoxetine HCL 40 mg PO DAILY 10/30/14 05/18/17 Folic Acid 1 mg PO DAILY 10/30/14 05/18/17 Hydrocodone/Acetaminophen 1 tab PO Q4H PRN 10/30/14 05/18/17 [Hydrocodone/Acetaminophen 10-325] Methotrexate Sodium [Methotrexate] 15 mg PO FR 10/30/14 05/18/17 Omeprazole [PriLOSEC] 20 mg PO AC-BID 10/30/14 05/18/17 amLODIPine BESYLATE [Amlodipine 10 mg PO DAILY 10/30/14 05/18/17 Besylate] Atenolol [Tenormin] 25 mg PO DAILY 05/18/17 05/18/17 Cyclobenzaprine [Flexeril] 10 mg PO HS PRN 05/18/17 05/18/17 Dicyclomine [Bentyl] 10 mg PO TID PRN 05/18/17 05/18/17 Diphenoxylate HCl/Atropine 1 tab PO BID PRN 05/18/17 05/18/17 [Lomotil 2.5-0.025 mg Tablet] Temazepam [Restoril] 15 mg PO HS 05/18/17 05/18/17 Previous Rx's Medication Instructions Recorded Rivaroxaban [Xarelto] 15 mg PO BID-W/MEALS #40 tab 05/21/17 Allergies Allergy/AdvReac Type Severity Reaction Status Date / Time No Known Allergies Allergy Verified 03/30/18 12:20 Review of Systems ROS Statement: Those systems with pertinent positive or pertinent negative responses have been documented in the HPI. ROS Other: All systems not noted in ROS Statement are negative. Constitutional: Denies: fever Eyes: Denies: eye pain ENT: Denies: ear pain Respiratory: Denies: cough Cardiovascular: Denies: chest pain Endocrine: Denies: fatigue Gastrointestinal: Reports: nausea, vomiting. Denies: abdominal pain Genitourinary: Denies: dysuria Musculoskeletal: Denies: back pain Skin: Denies: rash Neurological: Denies: headache, weakness Past Medical History Past Medical History: GERD/Reflux, Hyperlipidemia, Hypertension, Rheumatoid Arthritis (RA) Additional Past Medical History / Comment(s): RA History of Any Multi-Drug Resistant Organisms: None Reported Past Surgical History: Adenoidectomy, Appendectomy, Cholecystectomy, Tonsillectomy, Tubal Ligation Additional Past Surgical History / Comment(s): COLONOSCOPY. EGD. D & C X 5. RT OVARY REMOVED Past Anesthesia/Blood Transfusion Reactions: Motion Sickness, Postoperative Nausea & Vomiting (PONV) Past Psychological History: Depression Smoking Status: Former smoker Past Alcohol Use History: None Reported Past Drug Use History: None Reported - Past Family History Mother Family Medical History: Cancer Additional Family Medical History / Comment(s): LEUKEMIA General Exam Limitations: no limitations General appearance: alert, in no apparent distress Head exam: Present: atraumatic Eye exam: Present: normal appearance, PERRL, EOMI. Absent: nystagmus ENT exam: Present: normal oropharynx Neck exam: Present: normal inspection Respiratory exam: Present: normal lung sounds bilaterally Cardiovascular Exam: Present: regular rate, normal rhythm GI/Abdominal exam: Present: soft. Absent: tenderness Extremities exam: Present: normal inspection. Absent: pedal edema, calf tenderness Neurological exam: Present: alert, oriented X3, CN II-XII intact. Absent: motor sensory deficit Expanded Neurological exam: Present: protecting the airway Patient oriented to: Present: person, place, time Speech: Present: fluid speech Cranial nerves: EOM's Intact: Normal, Facial Sensation: Normal Cerebellar function: Finger to Nose: Normal Sensory exam: Upper Extremity Light Touch: Normal, Lower Extremity Light Touch: Normal Motor strength exam: RUE: 5, LUE: 5, RLE: 5, LLE: 5 Eye Response: (4) open spontaneously Motor Response: (6) obeys commands Verbal Response: (5) oriented Psychiatric exam: Present: normal affect, normal mood Skin exam: Present: normal color Course Vital Signs 03/30/18 11:26 Temperature 97.9 F Pulse Rate 67 Respiratory 16 Rate Blood Pressure 159/77 O2 Sat by Pulse 99 Oximetry Medical Decision Making - Medical Decision Making Patient and family were updated on plan. Case was discussed with Dr. Cox, covering with [facility] physician, who will admit for Dr. vidal, who admits for Dr. Pham. Disposition Clinical Impression: Altered mental status, Hypokalemia, Vomiting Disposition: ADMITTED IP TO THIS HOSP Is patient prescribed a controlled substance at d/c from ED?: No Referrals: Romel Pham MD [Primary Care Provider] - 1-2 days Decision Time: 12:28
--- NOTE | 2018-03-30 12:44 | XR ---
EXAMINATION TYPE: XR chest 2V DATE OF EXAM: 03/30/2018 COMPARISON: CTA chest May 19, 2017. Two-view chest x-ray May 18, 2017 HISTORY: Confusion and weakness. TECHNIQUE: Frontal and lateral views of the chest are obtained. FINDINGS: There is no focal air space opacity, pleural effusion, or pneumothorax seen. The cardiac silhouette size remains enlarged. The osseous structures are intact. IMPRESSION: Cardiomegaly without acute pulmonary process.
[2018-03-30 13:32] LABS: Calcium 9.1 mg/dL (8.4-10.2); Potassium 3.5 mmol/L (3.5-5.1)
[2018-03-30] MEDS: 0.9% NACL WITH KCL 20 MEQ/L 1,000 ML IV SCH (13:43)
[2018-03-30] MEDS ORDERED: ACETAMINOPHEN TAB 325 MG TAB PO PRN (14:26)
[2018-03-30] MEDS ORDERED: METHOTREXATE SODIUM 2.5 MG TAB PO SCH (14:30)
[2018-03-30] MEDS ORDERED: DOCUSATE 100 MG CAP PO PRN (14:44)
[2018-03-30] MEDS ORDERED: ALBUTEROL NEBULIZED 2.5 MG/3 ML INHALATION PRN (14:44)
--- NOTE | 2018-03-30 14:46 | P.HPIM ---
History of Present Illness H&P Date: 03/30/18 Chief Complaint: altered mentation Patient is a 62-year-old female past medical history of rheumatoid arthritis, hypertension, dyslipidemia, and irritable all syndrome who presented as a transfer from [facility]. On presentation to her [facility] she had been sent in for nausea and vomiting. On arrival there her nausea and vomiting have been resolved. It was then noted that she was having difficulty remembering events for the last week and a half. There was concern for altered mentation. Her B12, TSH, ESR, and urine BACK normal. Laboratory analysis showed a potassium of 2.6 and a lactic acid of 2.6. She was given IV potassium and IV fluids.. 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 She was transferred here for neurology evaluation. In the ER here she had a repeat chest x-ray which showed cardiomegaly but no acute process, her EKG was unremarkable. Upon repeat laboratory analysis here her potassium had increased to 3.5. She was subsequently admitted for neurologic evaluation. Patient seen and examined at bedside and the emergency department. She tells me she is unable to remember anything that has happened for the last week. Her daughter and at bedside. They tell me that she was normal up until this morning. This morning at 5 AM her was up and getting ready for work and she appeared appropriate. She then called him stating she was having vomiting and had alerted the ambulance. At that point in time on the phone she was making sense but seemed anxious and in distress. Per the family she has been unable to recall if there was a recent in the family and she needed to have a humeral, that she is having a birthday libertarian, oriented events of the last week. This is unusual for her. Her states that she got a new prescription of [place] 6 days ago and started taking it 5 days ago. She did run out of [place] for one day. They have been trying to decrease her [place] consumption and she has been cutting down from 4 times daily to 3 times daily. Apparently she had been complaining that she thought she was having a rheumatoid arthritis flare earlier this week. She doesn't believe she took any extra medications or missed any doses of medications. She has not had any unusual fevers or chills per the family. Patient denies any belly pain, nausea , or vomiting at this time. She has no other complaints at this time. She sees Dr. Pham and family denies any other adjustments in her medications. She does take methotrexate and Celebrex for her rheumatoid arthritis. Daughter states that when she arrives [facility] her mom was even more confused and obtunded and moaning. She also was foaming at the mouth. Patient denies any loss of bladder or bowel control. No signs of tongue biting. Review of Systems As able to obtain in HPI, unable to fully obtain as patient continually states "I'm not sure". ROS unobtainable: due to mental status Past Medical History Past Medical History: GERD/Reflux, Hyperlipidemia, Hypertension, Rheumatoid Arthritis (RA) Additional Past Medical History / Comment(s): Colitis, pulmonary embolism, rapid heart beat, anxiety History of Any Multi-Drug Resistant Organisms: None Reported Past Surgical History: Adenoidectomy, Appendectomy, Cholecystectomy, Tonsillectomy, Tubal Ligation Additional Past Surgical History / Comment(s): COLONOSCOPY. EGD. D & C X 5. Right oophorectomy Past Anesthesia/Blood Transfusion Reactions: Motion Sickness, Postoperative Nausea & Vomiting (PONV) Past Psychological History: Depression Smoking Status: Former smoker Past Alcohol Use History: None Reported Past Drug Use History: None Reported Additional History: Lives with , watchs her grandkids, no assistive devices - Past Family History Mother Family Medical History: Cancer Additional Family Medical History / Comment(s): LEUKEMIA Medications and Allergies Home Medications Medication Instructions Recorded Confirmed Type FLUoxetine HCL 40 mg PO DAILY 10/30/14 03/30/18 History Hydrocodone/Acetaminophen 1 tab PO Q4H PRN 10/30/14 03/30/18 History [Hydrocodone/Acetaminophen 10-325] Methotrexate Sodium [Methotrexate] 15 mg PO Q7D 10/30/14 03/30/18 History Cyclobenzaprine [Flexeril] 10 mg PO HS PRN 05/18/17 03/30/18 History Temazepam [Restoril] 15 mg PO HS PRN 05/18/17 03/30/18 History Adalimumab [Humira Pen] 40 mg SQ [id number] 03/30/18 03/30/18 History Rivaroxaban [Xarelto] 20 mg PO DAILY 03/30/18 03/30/18 History Sucralfate [Carafate] 1 gm PO ACHS 03/30/18 03/30/18 History Allergies Allergy/AdvReac Type Severity Reaction Status Date / Time No Known Allergies Allergy Verified 03/30/18 12:20 Physical Exam Osteopathic Statement: *. No significant issues noted on an osteopathic structural exam other than those noted in the History and Physical/Consult. Vitals: Vital Signs Temp Pulse Resp BP Pulse Ox 03/30/18 12:54 67 16 146/70 94 L 03/30/18 11:26 97.9 F 67 16 159/77 99 Intake and Output 03/29/18 03/30/18 03/30/18 22:59 06:59 14:59 Other: Weight 58.967 kg General: non toxic, no distress, appears at stated age, normal weight Derm: no unusual rashes/lesions no unusual ecchymoses, warm, dry Head: atraumatic, normocephalic, symmetric Eyes: EOMI, no lid lag, anicteric sclera, pupils equal round reactive to light ENT: Nose and ears atraumatic, no thrush, no pharyngeal erythema Neck: No thyromegaly, no cervical lymphadenopathy, trachea midline, supple Mouth: no lip lesion, mucus membranes moist Cardiovascular: S1S2 reg, no murmur, positive posterior tibial pulse bilateral, no edema, capillary refill less than 2 seconds Lungs: CTA bilateral, no rhonchi, no rales , no accessory muscle use Abdominal: soft, nontender to palpation, no guarding, no appreciable organomegaly, normal bowel sounds Ext: no gross muscle atrophy, muscle strength 5 out of 5 in all 4 extremities grossly, no contractures, Neuro: CN II-XI grossly intact, light touch intact all 4 extremities, finger to nose some difficulty on left Psych: Alert, oriented to year, month, and place, appropriate affect-gets anxious and she cannot remember things Results CBC & Chem 7: 03/30/18 12:50 Labs: Abnormal Lab Results - Last 24 Hours (Table) 03/30/18 Range/Units 12:50 Chloride 108 H (98-107) mmol/L Glucose 121 H (74-99) mg/dL Comments: EKG is reviewed by myself reveals normal sinus rhythm at a rate of 58, HI 138, QRS 113, QTC [address] segment depression in V4 through V6 Chest x-ray: report reviewed Thrombosis Risk Factor Assmnt - DVT/VTE Prophylaxis DVT/VTE Prophylaxis: Pharmacologic Prophylaxis ordered Assessment and Plan Assessment: Altered mentation -Concern for possible post ictal state versus TIA versus other -B12, TSH, and ESR all normal -Urinalysis normal -Check urine drug screen -Consult nephrology -Head CT with no acute process -Neuro checks -Telemetry -Seizure precautions -Hold Flexeril, Restoril, however continue [place] to avoid withdrawal symptoms Irritable bowel syndrome with recent nausea and vomiting -Monitor for signs of recurrent nausea and vomiting -No fever and CBC normal Hypokalemia -Replaced -Recheck in a.m. along with magnesium level Lactic acidosis -Status post IV fluids -Recheck lactic acid Hypertension, controlled -Not chronically on any medications at baseline -Follow blood pressures History of dyslipidemia -Not on any medications -Continue outpatient follow-up The patient is placed in observation with a less than 2 midnight stay for evaluation of altered mentation concern for seizure. Surrogate decision-maker: CODE STATUS:Full DVT prophylaxis: SCDs, heparin Discussed with: Patient, family, ED physician Anticipated discharge date: 2-[address]: home with home health A total of 65 minutes was spent on the care of this complex patient more than 50 % of the time was spent in counseling and care coordination.
[2018-03-30 15:21] VITALS: BMI 28.9
[2018-03-30] MEDS: HYDROcodone/APAP 10-325MG 1 EACH TAB PO PRN ×2 (15:23→22:35)
--- NOTE | 2018-03-30 15:27 | P.CNNES ---
History of Present Illness Consult date: 03/30/18 Reason for Consult: Patient admitted with confusion and possible TIA. History of Present Illness: This patient is a 62-year-old right-handed white female who apparently was up at about 5 AM and was helping her get ready to go to work. The who was admitted bedside and provided medical history stated she appeared to be quite normal and he was able to leave for work early this morning. The patient states that she has no memory of what had happened next status she was complaining of some nausea vomiting symptoms. She apparently called her and advised him that she was not feeling well. When the spoke to her she did not seem to have any slurring of her speech on the phone. The patient apparently then decided to call EMS. EMS arrived at the home and she appeared to be quite confused and disoriented. She was taken to the emergency room and was evaluated at [facility] ER and was seen by ER physician Dr. Olivier Macario. The patient appeared to be confused to the ER physician. She was sent for a computed tomography scan of the brain that was completed there on 03/30/2018. The final impression on the CAT scan revealed atrophic changes. No acute intracranial bleed, mass effect, or subdural collections were noted. Benign appearing bony exostosis or osteoma along the outer table of the skull at the left frontoparietal region was described. The patient did have great difficulty with confusion and remembering events that it happened about a week and a half ago at the ER. There was concern for her altered mental status. Laboratory testing revealed her to have a low serum potassium of 2.6. She was given IV potassium as well as IV fluids. Apparently she has a known history of this osteoma on CAT scan and this is not changed in over 40 years. When the family arrived at the emergency room she still appeared to be confused to them. She was having great deal of difficulty recalling events that have happened about a week earlier. She was able to move all of her extremities. She does feel that the confusion has improved since early this morning. The ER physician Dr Macario decided to transfer the patient to [facility] emergency room for neurological evaluation. The patient was admitted to the fourth floor. She was seen in neurology consultation this afternoon. Family members are at her bedside. Her clearly was able to give the history that she was fine yesterday as well as early this morning at 5 AM. He remembers talking to her on the phone earlier this morning but the patient has no memory of that event. In fact went family members questioned her her her memory loss dates back at least a week and a half ago. The patient did not have any signs of bowel or bladder incontinence when EMS had arrived at her home. She did not bite her tongue. She has no previous history of seizures. 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 She is currently taking methotrexate for long-term management. The patient denies having any previous history of TIA or stroke. She is doing much better now in terms of her recent memory and is able to answer simple questions. As noted she has difficulty with retrograde amnesia going back about a week and a half ago. Her neurological examination at this time at bedside appears to be within normal limits. The patient is now admitted and neurology has been consulted for further evaluation and recommendations. Review of Systems Constitutional: Denies chills, Denies fever Eyes: denies blurred vision, denies pain Ears, nose, mouth and throat: Denies headache, Denies sore throat Cardiovascular: Denies chest pain, Denies shortness of breath Respiratory: Denies cough Gastrointestinal: Denies abdominal pain, Denies diarrhea, Denies nausea, Denies vomiting Genitourinary: Denies dysuria, Denies hematuria Musculoskeletal: Reports limitation of motion, Denies myalgias Integumentary: Denies pruritus, Denies rash Neurological: Reports change in mentation, Reports confusion, Reports memory loss, Denies numbness, Denies weakness Psychiatric: Denies anxiety, Denies depression Endocrine: Denies fatigue, Denies weight change Past Medical History Past Medical History: GERD/Reflux, Hyperlipidemia, Hypertension, Rheumatoid Arthritis (RA) Additional Past Medical History / Comment(s): Colitis, pulmonary embolism, rapid heart beat, anxiety History of Any Multi-Drug Resistant Organisms: None Reported Past Surgical History: Adenoidectomy, Appendectomy, Cholecystectomy, Tonsillectomy, Tubal Ligation Additional Past Surgical History / Comment(s): COLONOSCOPY. EGD. D & C X 5. Right oophorectomy Past Anesthesia/Blood Transfusion Reactions: Motion Sickness, Postoperative Nausea & Vomiting (PONV) Past Psychological History: Depression Smoking Status: Former smoker Past Alcohol Use History: None Reported Past Drug Use History: None Reported - Past Family History Mother Family Medical History: Cancer Additional Family Medical History / Comment(s): LEUKEMIA Medications and Allergies Home Medications Medication Instructions Recorded Confirmed Type FLUoxetine HCL 40 mg PO DAILY 10/30/14 03/30/18 History Hydrocodone/Acetaminophen 1 tab PO Q4H PRN 10/30/14 03/30/18 History [Hydrocodone/Acetaminophen 10-325] Methotrexate Sodium [Methotrexate] 15 mg PO Q7D 10/30/14 03/30/18 History Cyclobenzaprine [Flexeril] 10 mg PO HS PRN 05/18/17 03/30/18 History Temazepam [Restoril] 15 mg PO HS PRN 05/18/17 03/30/18 History Adalimumab [Humira Pen] 40 mg SQ [id number] 03/30/18 03/30/18 History Rivaroxaban [Xarelto] 20 mg PO DAILY 03/30/18 03/30/18 History Sucralfate [Carafate] 1 gm PO ACHS 03/30/18 03/30/18 History Allergies Allergy/AdvReac Type Severity Reaction Status Date / Time No Known Allergies Allergy Verified 03/30/18 12:20 Physical Examination - Vital Signs Vital Signs: Vital Signs Temp Pulse Pulse Resp BP BP Pulse Ox 03/30/18 14:33 97.1 F L 63 16 148/79 98 03/30/18 12:54 67 16 146/70 94 L 03/30/18 11:26 97.9 F 67 16 159/77 99 Intake and Output 03/30/18 03/30/18 03/30/18 06:59 14:59 22:59 Other: Weight 58.967 kg - Constitutional General appearance: average body habitus, cooperative - EENT EENT: PERRL, mucous membranes moist - Respiratory Respiratory: lungs clear, normal breath sounds - Cardiovascular Cardiovascular: regular rate, normal S1, normal S2 Extremities: no peripheral edema bilaterally - Gastrointestinal Gastrointestinal: normoactive bowel sounds - Integumentary Integumentary: normal - Neurologic Cranial nerve examination: PERRL, EOMI, VFF, V1/V2/V3 grossly intact, face symmetric, intact gag reflex, intact corneal reflex, normal palatal elevation Speech examination: intact Sensorimotor examination: intact Motor examination - right side: 4/5: biceps, triceps, wrist flexion, wrist extension, institutional cook, hip flexors, knee extensors, dorsiflexion, toe extension (EHL) , plantarflexion Motor examination - left side: 4/5: biceps, triceps, wrist flexion, wrist extension, institutional cook, hip flexors, knee extensors, dorsiflexion, toe extension (EHL) , plantarflexion Detailed sensory examination: intact Reflex and gait examination: intact Reflexes: 1+: ankle, bicep, knee, tricep - Musculoskeletal Musculoskeletal: no pain - Psychiatric Psychiatric: mood/affect appropriate, cooperative Results - Laboratory Findings CBC and BMP: 03/30/18 12:50 Abnormal Lab Findings: Abnormal Labs 03/30/18 12:50 Chloride 108 H Glucose 121 H Assessment and Plan (1) Transient global amnesia Current Visit: Yes Status: Acute Code(s): G45.4 - TRANSIENT GLOBAL AMNESIA SNOMED Code(s): 951371142 (2) Acute metabolic encephalopathy Current Visit: Yes Status: Acute Code(s): G93.41 - METABOLIC ENCEPHALOPATHY SNOMED Code(s): 77604161 (3) TIA (transient ischemic attack) Current Visit: Yes Status: Acute Code(s): G45.9 - TRANSIENT CEREBRAL ISCHEMIC ATTACK, UNSPECIFIED SNOMED Code(s): 521422776 (4) Rheumatoid arthritis Current Visit: Yes Status: Acute Code(s): M06.9 - RHEUMATOID ARTHRITIS, UNSPECIFIED SNOMED Code(s): 19559517 Plan: This patient is a 62-year-old female who initially awoke early this morning and was helping her get ready for work at about 5 AM. Later in the morning she called her and told him she was not feeling well and had some nausea and vomiting symptoms. Apparently she did call EMS on her own and was taken by EMS to the emergency room at [facility]. She was seen in the ER by Dr. Macario and was sent for a computed tomography scan of the brain. CAT scan results are as noted above. She was then transferred to [facility] ER for further evaluation and neurological assessment. Patient was admitted from the ER by Dr. Farooq. History was obtained from the patient as well as her and family members at bedside this afternoon. Patient apparently has no previous history of amnesia but had this sudden loss of memory dating back a week and a half ago. She was unable to give any details of clear events that it happened just a week prior. Her CAT scan of the brain at the other hospital was reportedly entirely negative for any acute changes. There was also noted which is been long-standing and unchanged. The patient was admitted to hospital for further neurological examination. On neurological examination patient is awake and alert. She is following all commands. She has no focal motor deficit. Deep tendon reflexes are symmetric. Her neurological examination at this time is nonfocal. Her clinical history is highly suggesting an episode of retrograde amnesia consistent with transient global amnesia. We've explained to the family this is a form of TIA. We have recommended she undergo a complete stroke evaluation. Would recommend a complete stroke assessment including MRI of the brain as well as carotid Doppler ultrasound and echocardiogram of the heart. Patient would benefit from one baby aspirin daily for secondary stroke prevention. Her overall prognosis at this time remains guarded. Case was discussed at length with the patient as well as her and family members at bedside. All of their questions were answered. They are aware of her guarded condition. Her neurological examination at this time is nonfocal. As noted we are suspecting she has had an episode of transient global amnesia. Stroke workup is in progress. Neurology will continue close follow-up with this patient during this admission. Time with Patient: Greater than 30
[2018-03-30 15:58] LABS: Amphetamine Screen,Urine Not Detected (NotDetected); Barbiturate Screen,Urine Not Detected (NotDetected); Benzodiazepines Screen,Urine Detected (NotDetected); Cocaine Screen,Urine Not Detected (NotDetected); Methadone Screen, Urine Not Detected (NotDetected); Opiate Screen,Urine Detected (NotDetected); Oxycodone Screen, Urine Not Detected (NotDetected); Phencyclidine Screen,Urine Not Detected (NotDetected); Tricyclic Antidepressant,Urine Not Detected (NotDetected); Urn Cannabinoid Scrn Not Detected (NotDetected)
[2018-03-30] MEDS: HEPARIN SODIUM,PORCINE 5,000 UNIT/ML 1 ML VIAL SQ SCH (17:28)
[2018-03-30] MEDS: SUCRALFATE 1 GM TAB PO SCH ×2 (17:28→22:11)
--- NOTE | 2018-03-30 20:08 | MR ---
EXAMINATION TYPE: MR brain wo con DATE OF EXAM: 03/30/2018 COMPARISON: None HISTORY: AMS, pt with TIA vs seizure Standard multiplanar, multisequence MRI departmental protocol Multiplanar, multisequence images of the brain were acquired. Diffusion weighted imaging was performe d. FINDINGS: There is mild cerebral cortical atrophy. There is no mass effect nor midline shift. There i s no sign of intracranial hemorrhage. There is normal flow-void in the anterior middle and posterior cerebral arteries. I see no evidence of cortical infarct. There are a few scattered tiny areas of inc reased signal at the galindo-white matter junction of both cerebral hemispheres. Total number is approxi mately 10 in these measure up to 4 mm. The brainstem is intact. Corpus callosum is intact. Sella turc ica appears normal. There is no evidence of orbital mass. There is an oval-shaped low signal subcutan eous mass in the left parietal region of uncertain significance. This could be an unusual large sebac eous cyst. IMPRESSION: Scattered white matter small foci could relate to areas of microvascular ischemia. This is not a dorita stefanie of demyelinating disease. Mild cerebral atrophy.
--- NOTE | 2018-03-30 20:38 | US ---
EXAMINATION TYPE: US carotid duplex BILAT DATE OF EXAM: 03/30/2018 COMPARISON: NONE CLINICAL HISTORY: Patient with possible TIA.. EXAM MEASUREMENTS: RIGHT: Peak Systolic Velocity (PSV) cm/sec ----- Right CCA: 83.6 ----- Right ICA: 109.9 ----- Right ECA: 100.8 ICA/CCA ratio: 1.3 RIGHT: End Diastole cm/sec ----- Right CCA: 21.8 ----- Right ICA: 36.7 ----- Right ECA: 17.7 LEFT: Peak Systolic Velocity (PSV) cm/sec ----- Left CCA: 59.4 ----- Left ICA: 99.3 ----- Left ECA: 104.0 ICA/CCA ratio: 1.7 LEFT: End Diastole cm/sec ----- Left CCA: 14.5 ----- Left ICA: 38.9 ----- Left ECA: 18.3 VERTEBRALS (direction of flow): Right Vertebral: Antegrade Left Vertebral: Antegrade Rhythm: Normal Mild atherosclerotic changes with no significant stenosis seen. IMPRESSION: There is antegrade flow in the vertebral arteries. The images and measurements suggest 2 5% stenosis in both internal carotid arteries. Criteria for Assigning % of Stenosis / Diameter reduction (Estimation based on the indirect measurements of the internal carotid artery velocities (ICA PSV). 1. Normal (no stenosis)=ICA PSV < 125 cm/s: ratio < 2.0: ICA EDV<40 cm/s. 2. Less than 50% stenosis=ICA PSV < 125 cm/s: ratio < 2.0: ICA EDV<40 cm/s. 3. 50 to 69% stenosis=ICA PSV of 125 to 230 cm/s: ration 2.0 ? 4.0: ICA EDV 40-100 cm/s. 4. Greater than 70% stenosis to near occlusion= ICA PSV > 230 cm/s: ratio > 4.0: ICA EDV > 100 cm/s. 5. Near occlusion= ICA PSV velocities may be low or undetectable: variable ratio and ICA EDV. 6. Total occlusion=unable to detect flow.
[2018-03-30] MEDS: MELATONIN 3 MG TABLET PO SCH (22:35)
[2018-03-31] MEDS: HEPARIN SODIUM,PORCINE 5,000 UNIT/ML 1 ML VIAL SQ SCH ×2 (00:54→08:51)
[2018-03-31] MEDS: 0.9% NACL WITH KCL 20 MEQ/L 1,000 ML IV SCH ×3 (00:56→22:17)
[2018-03-31 01:44] VITALS: RESP 18
[2018-03-31] MEDS: HYDROcodone/APAP 10-325MG 1 EACH TAB PO PRN ×3 (05:39→22:19)
[2018-03-31] MEDS: SUCRALFATE 1 GM TAB PO SCH ×4 (08:50→22:19)
[2018-03-31] MEDS: ASPIRIN 81 MG PO SCH (08:50)
[2018-03-31] MEDS: PANTOPRAZOLE 40 MG/10 ML VIAL IV SCH (08:51)
[2018-03-31 10:06] LABS: Calcium 9.2 mg/dL (8.4-10.2); Potassium 3.6 mmol/L (3.5-5.1)
--- NOTE | 2018-03-31 12:48 | EEG ---
ELECTROENCEPHALOGRAM REPORT DATE OF EE03/31/2018. REFERRING PHYSICIAN: Dr. Garcia. CONSULTING PHYSICIAN: Dr. Bipin Cruz ELECTROENCEPHALOGRAPHIC EXAMINATION REPORT: INDICATION FOR EXAMINATION: This patient is a 62-year-old female, admitted with episode of confusion and possible transient global amnesia. The patient has evidence of retrograde amnesia. EEG to rule out seizure disorder. AGE: 62. EEG FINDINGS: A routine 21 channel awake digital EEG recording was accomplished utilizing the 10-20 international system with bipolar and referential montages. The background activity in the most alert resting state consists of a low to medium amplitude, fairly well developed and well sustained 8 Hz activity over the posterior head regions. This posterior rhythm attenuates to eye opening. There is a small amount of low amplitude 18-20 Hz beta activity seen maximally over the anterior head regions. Muscle and movement artifact was observed on a few occasions during the tracing. Hyperventilation was not performed. Photic stimulation at flash frequencies of 2-30 Hz produced a good symmetrical occipital driving response. No epileptiform discharges were seen. IMPRESSION: This EEG is normal for the patient's age. The EEG failed to reveal any focal, lateralized, or epileptiform abnormalities. Clinical correlation is recommended. MMODL / IJN: [id number] /
--- NOTE | 2018-03-31 13:26 | P.PN ---
Subjective Progress Note Date: 03/31/18 Principal diagnosis: Acute memory impairment Patient is a 62-year-old female past medical history of rheumatoid arthritis, hypertension, dyslipidemia, and irritable all syndrome who presented as a transfer from [facility]. On presentation to her [facility] she had been sent in for nausea and vomiting. On arrival there her nausea and vomiting have been resolved. It was then noted that she was having difficulty remembering events for the last week and a half. There was concern for altered mentation. Her B12, TSH, ESR, and urine BACK normal. Laboratory analysis showed a potassium of 2.6 and a lactic acid of 2.6. She was given IV potassium and IV fluids.. 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 She was transferred here for neurology evaluation. In the ER here she had a repeat chest x-ray which showed cardiomegaly but no acute process, her EKG was unremarkable. Upon repeat laboratory analysis here her potassium had increased to 3.5. She was subsequently admitted for neurologic evaluation. She was seen by neurology and MRI, carotid doppler, and EEG were negative. Acute neuro event was ruled out, possible transient global amnesia, but has not improved in 24 hours. Patient seen and examined at bedside. Family present. Memory has not started to return. She is not remembering things that occurred yesterday such as needing myself or coming to the hospital. Initially yesterday when I saw her she did remember transporting to our hospital but not getting to [facility]. She denies any chest pain, shortness of breath, nausea, or vomiting. Testing reviewed with family. Family does report that she has been under a lot of increased stress lately and that there has been a lot going on. There is a family history of mental health disorder. Objective - Vital Signs Vital signs: Vital Signs Temp 99.2 F 03/31/18 06:32 Pulse 65 03/31/18 06:32 Resp 18 03/31/18 06:32 BP 145/89 03/31/18 06:32 Pulse Ox 98 03/31/18 06:32 Intake & Output 03/30/18 03/31/18 03/31/18 18:59 06:59 18:59 Intake Total 1100 Balance 1100 Weight 76.5 kg Intake: Oral 1100 Other: Voiding Method Toilet # Voids 2 1 - Exam General: non toxic, no distress, appears at stated age Derm: warm, dry Head: atraumatic, normocephalic, symmetric Eyes: EOMI, no lid lag, anicteric sclera Mouth: no lip lesion, mucus membranes moist Cardiovascular: S1S2 reg, no murmur, positive posterior tibial pulse bilateral, Lungs: CTA bilateral, no rhonchi, no rales , no accessory muscle use Abdominal: soft, nontender to palpation, no guarding, no appreciable organomegaly Ext: no gross muscle atrophy, no edema, no contractures Neuro: CN II-XI grossly intact, no focal neuro deficits Psych: Alert, oriented to hospital and year, appropriate affect. Still not able to remember the last 2 weeks - Labs CBC & Chem 7: 03/31/18 09:29 Labs: Abnormal Lab Results - Last 24 Hours (Table) 03/30/18 03/30/18 03/31/18 Range/Units 12:50 14:30 09:29 Chloride 108 H (98-107) mmol/L Glucose 121 H 133 H (74-99) mg/dL Cholesterol 216 H (<200) mg/dL LDL Cholesterol, Calc 135 H (0-99) mg/dL Urine Opiates Screen Detected H (NotDetected) U Benzodiazepines Scrn Detected H (NotDetected) Assessment and Plan Assessment: Acute encephalopathy - Patient with acute recent memory impairment initially concern for transient global amnesia however not fitting the typical pattern - d/w neuro patient needs psych evaluation -B12, TSH, and ESR all normal -Urinalysis normal -UDS consistent with patients medications. -MRI, EEG, carotid doppler normal. -Neuro checks -Telemetry -Seizure precautions -Hold Flexeril, Restoril, however continue [place] to avoid withdrawal symptoms Irritable bowel syndrome with recent nausea and vomiting -Monitor for signs of recurrent nausea and vomiting -No fever and CBC normal Hypertension, controlled -Not chronically on any medications at baseline -Follow blood pressures History of dyslipidemia -Not on any medications -Continue outpatient follow-up Hypokalemia, resolved Lactic acidosis, resolved DVT prophylaxis: SCDs, heparin Discussed with:Patient, family, nursing, neuro Anticipated discharge date: [address]: home A total of 25 minutes was spent on the care of this complex patient more than 50 % of the time was spent in counseling and care coordination.
[2018-03-31] MEDS ORDERED: FLUoxetine HCL 20 MG CAP PO SCH (13:30)
--- NOTE | 2018-03-31 13:31 | P.PN ---
Subjective Progress Note Date: 03/31/18 This patient is a 62-year-old female admitted to hospital with episode of possible transient global amnesia. Patient had episode of acute confusion and had retrograde amnesia. She was initially evaluated at [facility] and subsequently transferred to [facility] for further neurological evaluation. She was seen in neurology consultation yesterday and her clinical history and exam findings were suggesting possibility of acute transient global amnesia. We did recommend an MRI of the brain to be done for further evaluation. MRI of the brain performed yesterday evening reveals scattered white matter foci of microvascular ischemia. This was not a pattern of demyelinating disease. There was mild cerebral atrophy noted. Diffusion weighted imaging revealed no evidence of acute stroke. Patient also underwent carotid Doppler ultrasound which revealed 25% stenosis in both internal carotid arteries. We reviewed the results of both of these test today with the patient. She is scheduled for EEG to rule out any possibility of seizure event associated with this recent episode of confusion. EEG was completed this morning and was reviewed. Her EEG is normal for her age with no evidence of any epileptiform discharges. We have discussed all of these test results today with the patient. We would recommend she be maintained on 1 aspirin daily for possibility of TIA. Case was discussed this morning with Dr. Moses. Patient continues to show signs of confusion and retrograde amnesia. This still is a finding suggesting possibility of transient global amnesia as a cause of her findings. Dr. Moses is recommending a psychiatry consultation for the patient and we will await further recommendations from Dr. Gagnon. We've discussed all of her test results in detail today with the patient. She may benefit from further outpatient neuropsychological testing if her symptoms do not show improvement. We will continue close neurological follow-up for the patient during this admission. Objective - Vital Signs Vital signs: Vital Signs Temp 99.2 F 03/31/18 06:32 Pulse 65 03/31/18 06:32 Resp 18 03/31/18 06:32 BP 145/89 03/31/18 06:32 Pulse Ox 98 03/31/18 06:32 Intake & Output 03/30/18 03/31/18 03/31/18 18:59 06:59 18:59 Intake Total 1100 Balance 1100 Weight 76.5 kg Intake: Oral 1100 Other: Voiding Method Toilet # Voids 2 1 - Exam Physical examination: PHYSICAL EXAMINATION: Patient is resting comfortably in bed. VITAL SIGNS: Blood pressure is [145/89]. Heart rate is [65]. Respiration is [18] . Temperature is [99.2]. HEENT: Head is atraumatic, neck is supple, there were no carotid bruits. CHEST: Lungs are clear to auscultation and percussion. CARDIAC: S1, S2 normal rate and rhythm. There is no murmur. ABDOMEN: Soft and nontender. Bowel sounds are present. EXTREMITIES: There is no pedal edema. Peripheral pulses are present. Neurological examination: Patient has a nonfocal neurological exam. She still has some evidence of retrograde amnesia on exam today. - Labs CBC & Chem 7: 03/31/18 09:29 Labs: Abnormal Lab Results - Last 24 Hours (Table) 03/30/18 03/30/18 03/31/18 Range/Units 12:50 14:30 09:29 Chloride 108 H (98-107) mmol/L Glucose 121 H 133 H (74-99) mg/dL Cholesterol 216 H (<200) mg/dL LDL Cholesterol, Calc 135 H (0-99) mg/dL Urine Opiates Screen Detected H (NotDetected) U Benzodiazepines Scrn Detected H (NotDetected) Assessment and Plan (1) Transient global amnesia Current Visit: Yes Status: Acute Code(s): G45.4 - TRANSIENT GLOBAL AMNESIA SNOMED Code(s): 248081531 (2) Acute metabolic encephalopathy Current Visit: Yes Status: Acute Code(s): G93.41 - METABOLIC ENCEPHALOPATHY SNOMED Code(s): 69928393 (3) TIA (transient ischemic attack) Current Visit: Yes Status: Acute Code(s): G45.9 - TRANSIENT CEREBRAL ISCHEMIC ATTACK, UNSPECIFIED SNOMED Code(s): 688351140 (4) Rheumatoid arthritis Current Visit: Yes Status: Acute Code(s): M06.9 - RHEUMATOID ARTHRITIS, UNSPECIFIED SNOMED Code(s): 73790261 Plan: This patient is a 62-year-old female who was admitted to hospital with episode of confusion and acute onset of amnesia. She was initially evaluated an outside hospital and transferred to [facility] yesterday for further neurological evaluation. Her neurological examination yesterday was nonfocal. Her clinical history of retrograde amnesia suggested possibility of transient global amnesia. We did recommend further testing for the patient which was completed late last night. She had MRI of the brain results which are noted above. MRI fails to reveal any evidence of acute stroke. Carotid Doppler ultrasound revealed no significant carotid artery stenosis. This morning she was able to complete a routine EEG which was reviewed and is normal for her age with no evidence of epileptiform discharges. We reviewed all of these tests results in detail today with the patient. Case was discussed this morning with Dr. Moses in detail and she is going to obtain a psychiatry consultation for the patient as well during this admission. We would recommend the patient should be maintained on 1 aspirin daily for secondary stroke prevention. We will continue to follow her progress closely during this admission. Her overall prognosis at this time remains guarded.
[2018-03-31] MEDS: RIVAROXABAN 20 MG TAB PO SCH (13:51)
[2018-03-31] MEDS ORDERED: METHOTREXATE SODIUM 2.5 MG TAB PO SCH (14:30)
--- NOTE | 2018-03-31 17:18 | CONS ---
CONSULTATION DATE OF SERVICE/DICTATION: 03/31/2018. IDENTIFYING DATA: This patient is a 62-year-old female who was admitted to our hospital from [facility] for acute mental status changes. HISTORY OF PRESENT ILLNESS: The patient was admitted describing no recollection of the last week as of yesterday morning. She states that she woke up and could not remember several details of her past and had difficulty even remembering the home she lived in. She has been given her tablet with pictures of her home and she states this information seems to be more familiar now. She is recalling more details. She states her mood is good as she feels better. She reports no hopeless thinking. No suicidal ideation, intent, or plan. She is endorsing no auditory or visual hallucinations. No tactile, olfactory, or gustatory hallucinations. She does describe an under current of anxiety that has been present throughout her life. She reports feeling very stressed with 3 more recent events. She states her closed his private business and is now employed, they recently had their son's wedding at their home, and she states now her is building a [employer]. She is describing no recent history of panic attacks. No hypomanic or manic episodes reported. She has been seen by neurology. An EEG and MRI have been performed with no acute findings. He has been cleared by Internal Medicine and Neurology. PAST PSYCHIATRIC HISTORY: No prior inpatient psychiatric care. No history of suicide attempts. She has been prescribed Prozac up to 40 mg daily. She states she was on that for 1 year in the context of her grandson attempting suicide. She stayed on for approximately 12 months and then discontinued the medication almost 2 years ago. She does have Xanax prescribed by her primary care physician as well as Restoril. She states that she takes Restoril each evening and Xanax as needed. During the time she was on the Prozac, she felt that it did reduce her anxiety. She does not believe she has been tried on any other psychotropic medication. PAST MEDICAL HISTORY: Rheumatoid arthritis treated with methotrexate. She is on Xarelto for history of DVT. ALLERGIES: No known drug allergies. CHEMICAL DEPENDENCY HISTORY: She reports using no alcohol or illicit drugs including marijuana. She has never been placed in residential treatment for chemical dependency reasons. FAMILY PSYCHIATRIC HISTORY: She has an aunt who was known to have schizophrenia. FAMILY CHEMICAL DEPENDENCY HISTORY: She states 3 of her brothers used illicit drugs. Her father was known to have an alcohol use disorder. LEGAL HISTORY: None. SOCIAL HISTORY: The patient is 62 years old. She has been for almost 40 years and states that it is a happy marriage. She has 3 children, 2 sons and a daughter. She has been a [id number] . She graduated high school. No service. Her is employed at a [employer]. He had his own private business prior to that. She is originally from [place] and has been in the [facility] for over 20 years. MENTAL STATUS EXAM: The patient is a pleasant, cooperative female appearing her stated age. She is dressed in hospital attire. She is lying in hospital bed. She is alert. She has spontaneous speech that is fluent and nonpressured. She describes her mood as being good. Affect is appropriately reactive and appears euthymic during our interaction. She denies having any suicidal or homicidal ideation, intent, or plan. She is reporting no auditory, visual, gustatory, tactile or olfactory hallucinations. She is endorsing no specific delusions. There is no observed evidence of psychosis. Thought process is linear. She demonstrates no tangential thinking, loose associations or flight of ideas. She does not appear hypomanic or manic. She is oriented to person, place, and date. She is able to register 3 words and after a delay of 3 minutes, she is able to recall all 3 words. She was able to name 3 major cities when asked. She was able to recite the months of the year backwards. She was able to appropriately name 3 objects and she was able to provide abstract answers with three similarity questions. Fund of knowledge is found to be average. She demonstrates no verbal or physical aggressiveness. She demonstrates no abnormal involuntary movements. Insight and judgment in general appear to be grossly intact. IMPRESSION: 1. Generalized anxiety disorder by history, rule out dissociative amnesia, rule out cognitive disorder secondary to medication interaction. 2. History of rheumatoid arthritis. 3. Recent stressors include 's change of job, recent construction of [employer], son's wedding. PLAN OF TREATMENT: The patient will be continued on the Prozac. She states she has not been on this medication for quite some time, so I will reduce the dose down to 20 mg. She may benefit from having this titrated again. She is encouraged to use the melatonin for sleep as she found it effective and to discontinue the Restoril. She is encouraged to discontinue the Xanax or use it very minimally. She plans on speaking with her primary care physician regarding the use of Guston and they have made efforts to reduce that. It seems that this episode could have been precipitated by recent stressors in the context of a generalized anxiety disorder or possibly interaction of her 10 mg Guston with Restoril. There is no imminent safety risk. She does not require inpatient psychiatric hospitalization. She is appropriate for transition back to outpatient care. She is encouraged to consider working with an individual therapist for anxiety symptoms if she feels that would be of benefit. MMODL / IJN: [id number] /
[2018-03-31] MEDS: MELATONIN 3 MG TABLET PO SCH (22:20)
[2018-04-01] MEDS: HYDROcodone/APAP 10-325MG 1 EACH TAB PO PRN (05:44)
[2018-04-01 07:17] VITALS: BP 140/81; PULSE 62; TEMP 97.1
[2018-04-01] MEDS: RIVAROXABAN 20 MG TAB PO SCH (08:21)
[2018-04-01] MEDS: ASPIRIN 81 MG PO SCH (08:21)
[2018-04-01] MEDS: SUCRALFATE 1 GM TAB PO SCH ×2 (08:21→12:23)
[2018-04-01] MEDS: PANTOPRAZOLE 40 MG/10 ML VIAL IV SCH (08:22)
[2018-04-01] MEDS ORDERED: FLUoxetine HCL 20 MG CAP PO SCH (09:00)
--- NOTE | 2018-04-01 11:54 | P.DS ---
Providers Date of admission: 03/30/18 12:28 Expected date of discharge: 04/01/18 Attending physician: Kaylene Garcia MD Consults: 03/30/18 12:29 Consult Physician Urgent Consulting Provider: Elizabeth Cruz Consult Reason/Comments: ams Do you want consulting provider notified?: Yes 03/31/18 12:42 Consult Physician Routine Consulting Provider: Devika Lopez Consult Reason/Comments: confusion, memory impairment Do you want consulting provider notified?: Yes Primary care physician: Romel Coronel [facility] Course: Discharge diagnoses: Amnesia-concern for transient global amnesia versus dissociative amnesia Hypopnea kalemia Lactic acidosis Herbal bowel syndrome Hypertension Dyslipidemia Hospital course: Patient is a 62-year-old female past medical history of rheumatoid arthritis, hypertension, dyslipidemia, and irritable all syndrome who presented as a transfer from [facility]. On presentation to [facility] she had been sent in for nausea and vomiting. On arrival there her nausea and vomiting have been resolved. It was then noted that she was having difficulty remembering events for the last week and a half. There was concern for altered mentation. Her B12, TSH, ESR, and urine BACK normal. Laboratory analysis showed a potassium of 2.6 and a lactic acid of 2.6. She was given IV potassium and IV fluids.. 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 She was transferred here for neurology evaluation. In the ER here she had a repeat chest x-ray which showed cardiomegaly but no acute process, her EKG was unremarkable. Upon repeat laboratory analysis here her potassium had increased to 3.5. She was subsequently admitted for neurologic evaluation. She was seen by neurology and MRI, carotid doppler, and EEG were negative. Acute neuro event was ruled out, possible transient global amnesia, but has not improved in 24 hours. Neurology still feels may be transient global amnesia. She was also evaluated by psychiatry who feels she may have dissociative amnesia secondary to a stress reaction and her generalized anxiety disorder. He has suggested restarting her Prozac at 20 mg daily and she has been written a prescription for this. I also talked with her extensively about setting up with an outpatient therapy. I have suggested neuropsych evaluation and she has been provided the number for [facility] to call for an appointment. She was determined stable for discharge home. She will follow with Dr. Pham in 3-5 days. Patient seen and examined at bedside. no chest pain, SOB, or nausea. Thinks that her memory is getting better. Able to recall her converstaion with Dr. Gagnon and myself from yesterday. Vital signs reviewed and stable. General: non toxic, no distress, appears at stated age Derm: warm, dry Head: atraumatic, normocephalic, symmetric Eyes: EOMI, no lid lag, anicteric sclera Mouth: no lip lesion, mucus membranes moist Cardiovascular: S1S2 reg, no murmur, positive posterior tibial pulse bilateral, Lungs: CTA bilateral, no rhonchi, no rales , no accessory muscle use Abdominal: soft, nontender to palpation, no guarding, no appreciable organomegaly Ext: no gross muscle atrophy, no edema, no contractures Neuro: CN II-XI grossly intact, no focal neuro deficits Psych: Alert, oriented, appropriate affect, still stuggeling to recall her house but states that if she [place] at the [place] she can recall her house A total of 20 minutes of time were spent preparing this complex discharge summary . Pertinent Studies: MRI-scattered white matter small foci Carotid Doppler-less than 25% stenosis Patient Condition at Discharge: Good Plan - Discharge Summary New Discharge Prescriptions: New FLUoxetine HCL [PROzac] 20 mg PO DAILY #30 cap Melatonin 3 mg PO HS tablet Continue Methotrexate Sodium [Methotrexate] 15 mg PO Q7D Hydrocodone/Acetaminophen [Hydrocodone/Acetaminophen 10-325] 1 tab PO Q4H PRN PRN Reason: Pain Sucralfate [Carafate] 1 gm PO ACHS Rivaroxaban [Xarelto] 20 mg PO DAILY Discontinued FLUoxetine HCL 40 mg PO DAILY Temazepam [Restoril] 15 mg PO HS PRN PRN Reason: Insomnia Cyclobenzaprine [Flexeril] 10 mg PO HS PRN PRN Reason: Muscle Spasm Adalimumab [Humira Pen] 40 mg SQ [id number] Discharge Medication List Hydrocodone/Acetaminophen [Hydrocodone/Acetaminophen 10-325] 1 tab PO Q4H PRN [History] Methotrexate Sodium [Methotrexate] 15 mg PO Q7D 10/30/14 [History] Rivaroxaban [Xarelto] 20 mg PO DAILY 07/20/18 [History] Sucralfate [Carafate] 1 gm PO ACHS 03/30/18 [History] FLUoxetine HCL [PROzac] 20 mg PO DAILY #30 cap 04/01/18 [Rx] Melatonin 3 mg PO HS tablet 04/01/18 [Rx] Follow up Appointment(s)/Referral(s): Romel Pham MD [Primary Care Provider] - 1-2 days Activity/Diet/Wound Care/Special Instructions: [facility] Neurophsychology testing. Multiple Locations please call [phone] for an appointment. Melatonin over the counter can be used for sleep at either the 5mg or 10mg doses We are concerned you may have Transient Global Amnesia or Dissociative amnesia. Discharge Disposition: HOME SELF-CARE
--- NOTE | 2018-04-01 11:57 | P.DS ---
Providers Date of admission: 03/30/18 12:28 Expected date of discharge: 04/01/18 Attending physician: Kaylene Garcia MD Consults: 03/30/18 12:29 Consult Physician Urgent Consulting Provider: Elizabeth Cruz Consult Reason/Comments: ams Do you want consulting provider notified?: Yes 03/31/18 12:42 Consult Physician Routine Consulting Provider: Devika Lopez Consult Reason/Comments: confusion, memory impairment Do you want consulting provider notified?: Yes Primary care physician: Romel Coronel [facility] Course: Discharge diagnoses: Amnesia-concern for transient global amnesia versus dissociative amnesia Hypokalemia Lactic acidosis Irritable bowel syndrome Hypertension Dyslipidemia Hospital course: Patient is a 62-year-old female past medical history of rheumatoid arthritis, hypertension, dyslipidemia, and irritable all syndrome who presented as a transfer from [facility]. On presentation to her [facility] she had been sent in for nausea and vomiting. On arrival there her nausea and vomiting have been resolved. It was then noted that she was having difficulty remembering events for the last week and a half. There was concern for altered mentation. Her B12, TSH, ESR, and urine BACK normal. Laboratory analysis showed a potassium of 2.6 and a lactic acid of 2.6. She was given IV potassium and IV fluids.. 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 She was transferred here for neurology evaluation. In the ER here she had a repeat chest x-ray which showed cardiomegaly but no acute process, her EKG was unremarkable. Upon repeat laboratory analysis here her potassium had increased to 3.5. She was subsequently admitted for neurologic evaluation. She was seen by neurology and MRI, carotid doppler, and EEG were negative. Acute neuro event was ruled out, possible transient global amnesia, but has not improved in 24 hours. Neurology still feels may be transient global amnesia. She was also evaluated by psychiatry who feels she may have dissociative amnesia secondary to a stress reaction and her generalized anxiety disorder. He has suggested restarting her Prozac at 20 mg daily and she has been written a prescription for this. I also talked with her extensively about setting up with an outpatient therapy. I have suggested neuropsych evaluation and she has been provided the number for [facility] to call for an appointment. She was determined stable for discharge home. She will follow with Dr. Pham in 3-5 days. Patient seen and examined at bedside. no chest pain, SOB, or nausea. Thinks that her memory is getting better. Able to recall her converstaion with Dr. Gagnon and myself from yesterday. Vital signs reviewed and stable. General: non toxic, no distress, appears at stated age Derm: warm, dry Head: atraumatic, normocephalic, symmetric Eyes: EOMI, no lid lag, anicteric sclera Mouth: no lip lesion, mucus membranes moist Cardiovascular: S1S2 reg, no murmur, positive posterior tibial pulse bilateral, Lungs: CTA bilateral, no rhonchi, no rales , no accessory muscle use Abdominal: soft, nontender to palpation, no guarding, no appreciable organomegaly Ext: no gross muscle atrophy, no edema, no contractures Neuro: CN II-XI grossly intact, no focal neuro deficits Psych: Alert, oriented, appropriate affect, still stuggeling to recall her house but states that [place] she [place] the [place] she can recall her house A total of 20 minutes of time were spent preparing this complex discharge summary . Pertinent Studies: MRI-scattered white matter small foci Carotid Doppler-less than 25% stenosis Patient Condition at Discharge: Good Plan - Discharge Summary New Discharge Prescriptions: New FLUoxetine HCL [PROzac] 20 mg PO DAILY #30 cap Melatonin 3 mg PO HS tablet Continue Methotrexate Sodium [Methotrexate] 15 mg PO Q7D Hydrocodone/Acetaminophen [Hydrocodone/Acetaminophen 10-325] 1 tab PO Q4H PRN PRN Reason: Pain Sucralfate [Carafate] 1 gm PO ACHS Rivaroxaban [Xarelto] 20 mg PO DAILY Discontinued FLUoxetine HCL 40 mg PO DAILY Temazepam [Restoril] 15 mg PO HS PRN PRN Reason: Insomnia Cyclobenzaprine [Flexeril] 10 mg PO HS PRN PRN Reason: Muscle Spasm Adalimumab [Humira Pen] 40 mg SQ [id number] Discharge Medication List Hydrocodone/Acetaminophen [Hydrocodone/Acetaminophen 10-325] 1 tab PO Q4H PRN [History] Methotrexate Sodium [Methotrexate] 15 mg PO Q7D 10/30/14 [History] Rivaroxaban [Xarelto] 20 mg PO DAILY 03/30/18 [History] Sucralfate [Carafate] 1 gm PO ACHS 03/30/18 [History] FLUoxetine HCL [PROzac] 20 mg PO DAILY #30 cap 04/01/18 [Rx] Melatonin 3 mg PO HS tablet 04/01/18 [Rx] Follow up Appointment(s)/Referral(s): Romel Pham MD [Primary Care Provider] - 1-2 days Activity/Diet/Wound Care/Special Instructions: Blaze Moyer [facility] Neurophsychology testing. Multiple Locations please call [phone] for an appointment. Would benefit from therapy for coping mechanisms. Melatonin over the counter can be used for sleep at either the 5mg or 10mg doses We are concerned you may have Transient Global Amnesia or Dissociative amnesia. Discharge Disposition: HOME SELF-CARE
--- NOTE | 2018-04-01 12:43 | P.PN ---
Subjective Progress Note Date: 04/01/18 This patient is a 62-year-old female admitted to hospital with episode of possible transient global amnesia. Patient had episode of acute confusion and had retrograde amnesia. She was initially evaluated at [facility] and subsequently transferred to [facility] for further neurological evaluation. She was seen in neurology consultation yesterday and her clinical history and exam findings were suggesting possibility of acute transient global amnesia. We did recommend an MRI of the brain to be done for further evaluation. MRI of the brain performed yesterday evening reveals scattered white matter foci of microvascular ischemia. This was not a pattern of demyelinating disease. There was mild cerebral atrophy noted. Diffusion weighted imaging revealed no evidence of acute stroke. Patient also underwent carotid Doppler ultrasound which revealed 25% stenosis in both internal carotid arteries. We reviewed the results of both of these test today with the patient. She is scheduled for EEG to rule out any possibility of seizure event associated with this recent episode of confusion. EEG was completed this morning and was reviewed. Her EEG is normal for her age with no evidence of any epileptiform discharges. We have discussed all of these test results today with the patient. We would recommend she be maintained on 1 aspirin daily for possibility of TIA. Case was discussed this morning with Dr. Moses. Patient continues to show signs of confusion and retrograde amnesia. This still is a finding suggesting possibility of transient global amnesia as a cause of her findings. Dr. Moses is recommending a psychiatry consultation for the patient and we will await further recommendations from Dr. Gagnon. We've discussed all of her test results in detail today with the patient. She may benefit from further outpatient neuropsychological testing if her symptoms do not show improvement. Patient was seen by Dr. Gagnon yesterday from psychiatry. She has generalized anxiety disorder and also question of disassociative amnesia. He is recommending outpatient therapy for the patient and Dr. Moses is arranging for neuropsychological evaluation as outpatient. She is being considered for discharge home today. She may follow-up in the outpatient neurology clinic in 3-4 weeks as needed. We will continue close neurological follow-up for the patient during this admission. Objective - Vital Signs Vital signs: Vital Signs Temp 97.1 F L 04/01/18 07:10 Pulse 62 04/01/18 07:10 Resp 18 04/01/18 07:10 BP 140/81 04/01/18 07:10 Pulse Ox 96 04/01/18 07:10 Intake & Output 03/31/18 04/01/18 04/01/18 18:59 06:59 18:59 Intake Total 1000 Balance 1000 Intake: Oral 1000 Other: Voiding Method Toilet # Voids 3 1 - Exam Physical examination: PHYSICAL EXAMINATION: Patient is resting comfortably in bed. VITAL SIGNS: Blood pressure is [140/81]. Heart rate is [62]. Respiration is [18] . Temperature is [97.1]. HEENT: Head is atraumatic, neck is supple, there were no carotid bruits. CHEST: Lungs are clear to auscultation and percussion. CARDIAC: S1, S2 normal rate and rhythm. There is no murmur. ABDOMEN: Soft and nontender. Bowel sounds are present. EXTREMITIES: There is no pedal edema. Peripheral pulses are present. Neurological examination: Patient has a nonfocal neurological exam. She is more awake and alert and does have memory of the last 2 days of her hospitalization. She is being considered for discharge home today. Her neurological examination remains nonfocal today. - Labs CBC & Chem 7: 03/31/18 09:29 Assessment and Plan (1) Transient global amnesia Current Visit: Yes Status: Acute Code(s): G45.4 - TRANSIENT GLOBAL AMNESIA SNOMED Code(s): 067825321 (2) Acute metabolic encephalopathy Current Visit: Yes Status: Acute Code(s): G93.41 - METABOLIC ENCEPHALOPATHY SNOMED Code(s): 85638846 (3) TIA (transient ischemic attack) Current Visit: Yes Status: Acute Code(s): G45.9 - TRANSIENT CEREBRAL ISCHEMIC ATTACK, UNSPECIFIED SNOMED Code(s): 979338967 (4) Rheumatoid arthritis Current Visit: Yes Status: Acute Code(s): M06.9 - RHEUMATOID ARTHRITIS, UNSPECIFIED SNOMED Code(s): 89478347 Plan: This patient is a 62-year-old female who was admitted to hospital with episode of confusion and acute onset of amnesia. She was initially evaluated an outside hospital and transferred to [facility] yesterday for further neurological evaluation. Her neurological examination yesterday was nonfocal. Her clinical history of retrograde amnesia suggested possibility of transient global amnesia. We did recommend further testing for the patient which was completed late last night. She had MRI of the brain results which are noted above. MRI fails to reveal any evidence of acute stroke. Carotid Doppler ultrasound revealed no significant carotid artery stenosis. This morning she was able to complete a routine EEG which was reviewed and is normal for her age with no evidence of epileptiform discharges. We reviewed all of these tests results in detail today with the patient. Case was discussed this morning with Dr. Moses in detail and she is going to obtain a psychiatry consultation for the patient as well during this admission. Patient was seen yesterday by Dr. Gagnon from psychiatry. His consultation has been noted. She is being considered for discharge home today. We would recommend the patient should be maintained on 1 aspirin daily for secondary stroke prevention. We will continue to follow her progress closely during this admission. She may follow-up in the outpatient neurology clinic in 3-4 weeks as needed. Her overall prognosis at this time remains guarded.
--- NOTE | 2018-04-09 10:02 | CDI ---
Last Revision, August 2017 Documentation Clarification Form Date: 04/09/18 From: Clover Robison Phone: If you have question, contact Yesica Pantoja Dealer Relationship Manager at M-F 8:30 am to 6pm Admit Date: 03/30/2018 12:28:00 PM Patient Name: Nohemy Morse Visit Number: [id number] Discharge Date: 04/01/18 ATTENTION: The Clinical Documentation Specialists (CDI) and [facility] Coding Staff appreciate your assistance in clarifying documentation. Please respond to the clarification below the line at the bottom and electronically sign. The CDI & [facility] Coding staff will review the response and follow-up if needed. Please note: Queries are made part of the Legal Health Record. If you have any questions, please contact the author of this message via ITS. Dr. Preethi Izaguirre Per the 03/30 consultation Patient is admitted with confusion and possible TIA and Weve explained to the family this is a form of TIA. Discharge diagnosis is: Amnesia concern for transient global amnesia versus dissociative amnesia. TIA is not listed as a diagnosis on the discharge summary. Further clarification is needed for proper reporting purposes. Please clarify: TIA ruled in, amnesia is related TIA ruled in, amnesia is NOT related TIA ruled out Other (please clarify) Unknown Thank you for your time. TIA Ruled Out MTDD
--- NOTE | 2018-04-09 10:12 | CDI ---
Last Revision, August 2017 Documentation Clarification Form Date: 04/09/18 From: Clover Robison Phone: If you have question, contact Yesica Pantoja Reclamation Furnace Operator at [phone] M-F 8:30 am to 6pm Admit Date: 03/30/2018 12:28:00 PM Patient Name: Nohemy Morse Visit Number: [id number] Discharge Date: 04/01/18 ATTENTION: The Clinical Documentation Specialists (CDI) and [facility] Coding Staff appreciate your assistance in clarifying documentation. Please respond to the clarification below the line at the bottom and electronically sign. The CDI & [facility] Coding staff will review the response and follow-up if needed. Please note: Queries are made part of the Legal Health Record. If you have any questions, please contact the author of this message via ITS. Dr. Preethi Izaguirre Acute metabolic encephalopathy is documented in the progress notes on 03/31 and . It is also documented in the consult from 03/30. This diagnosis isnt documented in the discharge summary. Further clarification regarding this diagnosis is needed for proper reporting purposes. Please clarify: Acute metabolic encephalopathy ruled in Acute metabolic encephalopathy ruled out Other (please specify) Unknown Thank you for your time. ___Acute metabolic encephalopathy ruled out, Amnesia diagnosed MTDD
== END 2018-04-01 12:53 | disposition home or self-care (01) | DRG 71 ==
LOC: EC 11:22 → 4MS4W 12:28
PROVIDERS: ADMIT Internal Medicine; ATTEND Internal Medicine
DX: G45.4 Transient global amnesia (principal); E87.2 Acidosis; E87.6 Hypokalemia; M06.9 Rheumatoid arthritis, unspecified; E78.5 Hyperlipidemia, unspecified; K58.9 Irritable bowel syndrome, unspecified; K21.9 Gastro-esophageal reflux disease without esophagitis; F32.9 Major depressive disorder, single episode, unspecified; F41.1 Generalized anxiety disorder; D16.4 Benign neoplasm of bones of skull and face; I11.9 Hypertensive heart disease without heart failure; Z79.01 Long term (current) use of anticoagulants; Z86.711 Personal history of pulmonary embolism; Z90.49 Acquired absence of other specified parts of digestive tract; Z98.51 Tubal ligation status; Z98.890 Other specified postprocedural states; Z87.891 Personal history of nicotine dependence; Z90.721 Acquired absence of ovaries, unilateral; Z79.899 Other long term (current) drug therapy; Z86.718 Personal history of other venous thrombosis and embolism; Z80.6 Family history of leukemia
CPT/HCPCS: 70551; 71046; 80048; 80061; 80306; 83605; 93880; 95816; 96374; 99285

== ENCOUNTER → 2019-01-23 | Outpatient (CLI) | payer BC ==
--- NOTE | 2019-01-24 09:54 | MM ---
Reason for exam: screening (asymptomatic). Last mammogram was performed 2 years and 6 months ago. History: Patient is postmenopausal and has history of other cancer at age 55. Took estrogen for 1 year. Took progesterone for 1 year. Physical Findings: A clinical breast exam by your physician is recommended on an annual basis and results should be correlated with mammographic findings. MG 3D Screening Mammo W/Cad Bilateral CC and MLO view(s) were taken. Prior study comparison: July 15, 2016, bilateral MG 3d screening mammo w/cad. September 29, 2014, bilateral MG screening mammo w CAD. The breast tissue is heterogeneously dense. This may lower the sensitivity of mammography. Stable benign calcifications bilaterally. There is chronic nodularity in the right breast, stable. No significant changes when compared with prior studies. ASSESSMENT: Benign, BI-RAD 2 RECOMMENDATION: Routine screening mammogram of both breasts in 1 year.
== END | disposition home or self-care (01) ==
LOC: RADMAMWWP 07:45
PROVIDERS: ATTEND Family Medicine
DX: Z12.31 Encounter for screening mammogram for malignant neoplasm of breast (principal)
CPT/HCPCS: 77063; 77067

== ENCOUNTER 2019-10-07 16:45 | Inpatient (IN) | payer OTHER ==
--- NOTE | 2019-10-07 16:09 | CT ---
EXAMINATION TYPE: CT abdomen pelvis w con DATE OF EXAM: 10/07/2019 HISTORY: NAUSEA AND VOMITING CT DLP: 455.9mGycm Automated Exposure Control for Dose Reduction was Utilized. CONTRAST: CT scan of the abdomen and pelvis is performed with IV Contrast, patient injected with 100 mL of Isov ue 300. COMPARISON: CT abdomen and pelvis May 20, 2017 FINDINGS: LUNG BASES: Right anterior to mid lung linear scarring and/or atelectasis. LIVER/GB: Cholecystectomy clips are redemonstrated. PANCREAS: Moderate fat replaced atrophy of pancreas again seen. SPLEEN: No significant abnormality is seen. ADRENALS: No significant abnormality is seen. KIDNEYS: Asymmetric diminished size to left kidney versus right kidney new from prior CT. There is di minished left-sided cortical medullary uptake and nonvisualized excretion. 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 Fo kimberli moderate plaque posterior aorta mixed is redemonstrated. Patent celiac artery, SMA, and PARUL witho ut significant stenosis. BOWEL: Oral contrast does not reach level of terminal ileum making evaluation for small slightly subo ptimal. Mild wall thickening terminal ileum. No suspicious small or large bowel dilatation. Poor dist ention of stomach makes evaluation at this level suboptimal. UTERUS/ADNEXA: Slightly retroverted uterus. LYMPH NODES: No greater than 1cm abdominal or pelvic lymph nodes are appreciated. OSSEOUS STRUCTURES: Moderate disc space narrowing L4-L5 level redemonstrated. OTHER: No significant additional abnormality is seen. IMPRESSION: 1. Overall nonobstructive bowel gas pattern. Mild to moderate prominence of fecal material throughout the colon, correlate for fecal stasis. Possible mild inflammatory change at level of terminal ileum versus product before distention, correlate clinically. 2. Moderate atherosclerotic changes of aorta extending into branch vessels. There is now significant focal plaque at origin of left renal artery causing suspected complete occlusion with new atrophy and diminished function to the left kidney. Vascular surgical referral for consultation advised.
[2019-10-07 17:57] LABS: Basophils # (A) 0.2 k/uL (0-0.2); Basophils % (A) 2 %; Eosinophils # (A) 0.4 k/uL (0-0.7); Eosinophils % (A) 4 %; HCT 41.6 % (34.0-46.0); HGB 13.5 gm/dL (11.4-16.0); Lymphocytes # (A) 2.7 k/uL (1.0-4.8); Lymphocytes % (A) 28 %; MCH 31.7 pg (25.0-35.0); MCHC 32.5 g/dL (31.0-37.0); MCV 97.7 fL (80.0-100.0); Mean Platelet Volume 7.8; Monocytes # (A) 0.6 k/uL (0-1.0); Monocytes % (A) 7 %; Neutrophils # (A) 5.4 k/uL (1.3-7.7); Neutrophils % (A) 57 %; Platelet Count 393 k/uL (150-450); RBC 4.26 m/uL (3.80-5.40); RDW 14.6 % (11.5-15.5); WBC 9.6 k/uL (3.8-10.6)
[2019-10-07 18:04] LABS: Prothrombin Time 10.8 sec (9.0-12.0)
[2019-10-07 18:05] LABS: Albumin 4.1 g/dL (3.5-5.0); Calcium 9.9 mg/dL (8.4-10.2); Total Bilirubin 0.5 mg/dL (0.2-1.3); Total Protein 7.5 g/dL (6.3-8.2)
--- NOTE | 2019-10-07 18:23 | US ---
EXAMINATION TYPE: US venous doppler duplex LE RT DATE OF EXAM: 10/07/2019 6:17 PM COMPARISON: US CLINICAL HISTORY: leg pain, hx DVT. Right leg pain x 3 days. Hx DVT, PE. Patient takes Xarelto. SIDE PERFORMED: Right TECHNIQUE: The lower extremity deep venous system is examined utilizing real time linear array sonog niels with graded compression, doppler sonography and color-flow sonography. VESSELS IMAGED: External Iliac Vein (EIV) Common Femoral Vein Deep Femoral Vein Greater Saphenous Vein * Femoral Vein Popliteal Vein Small Saphenous Vein * Proximal Calf Veins (* superficial vessels) Right Leg: No evidence of DVT at this time in veins imaged from prox calf veins to EIV. Limited visi bility of prox calf veins. IMPRESSION: No evident deep venous arthrosis at or above the right knee, follow-up as indicated.
[2019-10-07] MEDS ORDERED: HYDROcodone/APAP 10-325MG 1 EACH TAB PO ONE (18:54)
[2019-10-07 19:05] LABS: Appearance,Urine Clear (Clear); Bacteria,Urine Rare /hpf; Bilirubin,Urine Negative (Negative); Blood,Urine Negative (Negative); Color,Urine Light Yellow; Glucose,Urine (UA) Negative (Negative); Hyaline Casts,Urine 1 /lpf (0-2); Ketones,Urine Negative (Negative); Leukocyte Esterase,Urine Moderate (Negative); Mucus,Urine Rare /hpf; Nitrite,Urine Negative (Negative); Protein,Urine Negative (Negative); Specific Gravity,Urine 1.039 (1.001-1.035); Squamous Epithelial Cell,Urine 1 /hpf (0-4); Urobilinogen,Urine <2.0 mg/dL (<2.0); WBC,Urine 4 /hpf (0-5)
--- NOTE | 2019-10-07 19:13 | ED ---
General Adult HPI - General Chief complaint: Recheck/Abnormal Lab/Rx Stated complaint: ABN CT scan Time Seen by Provider: 10/07/19 17:05 Source: patient Mode of arrival: ambulatory Limitations: no limitations - History of Present Illness Initial comments: The patient is a 63-year-old female with past medical history of GERD, hypertension, hyperlipidemia, and rheumatoid arthritis who presents to the emergency room with reported abnormal computed tomography scan. The patient saw Dr. Pham in office because of a 2 week history of epigastric pain, nausea with inability to eat any foods. She is also having hot flashes. Dr. Pham performed laboratory studies and Center for an outpatient CT of her abdomen and pelvis. Patient had a CT performed and was told she had abnormal results which required her to go immediately to the emergency department. Upon review of the results that shows significant focal plaque at the origin of the left renal artery causing suspected complete occlusion with new atrophy and diminished function of the left kidney. The patient does admit to uncontrolled high blood pressure recently. She has a history of high blood pressure and has been taking her medications as directed. She also has a history of PE and DVT. She is on Xarelto and has been taking her medications without fail. She had a full workup for the DVT and PE stating that they found no cause. 3 days ago she did have some cramping in her right calf. She also had very intermittent numbness and tingling of her third through fifth toes on the right side. States it is completely went away. She denies any chest pain or shortness of breath. Does admit to decreased urine output. Denies dysuria or hematuria. Denies any changes in her bowel habits. There are no other alleviating, precipitating or modifying factors - Related Data Home Medications Medication Instructions Recorded Confirmed Hydrocodone/Acetaminophen 1 tab PO Q6H PRN 10/30/14 10/07/19 [Hydrocodone/Acetaminophen 10-325] Methotrexate Sodium [Methotrexate] 15 mg PO FR 10/30/14 10/07/19 Rivaroxaban [Xarelto] 20 mg PO DAILY 03/30/18 10/07/19 ALPRAZolam [Xanax] 0.25 mg PO Q8HR PRN 10/07/19 10/07/19 Atorvastatin [Lipitor] 20 mg PO HS 10/07/19 10/07/19 Cyclobenzaprine [Flexeril] 10 mg PO HS 10/07/19 10/07/19 Metoprolol Succinate [Toprol XL] 25 mg PO DAILY 10/07/19 10/07/19 Ondansetron Odt [Zofran ODT] 8 mg PO Q8HR 10/07/19 10/07/19 Temazepam [Restoril] 15 mg PO HS PRN 10/07/19 10/07/19 predniSONE 2.5 mg PO DAILY 10/07/19 10/07/19 Previous Rx's Medication Instructions Recorded FLUoxetine HCL [PROzac] 20 mg PO DAILY #30 cap 04/01/18 Omeprazole 40 mg PO BID #60 cap 10/10/19 amLODIPine [Norvasc] 10 mg PO HS #30 tab 10/10/19 Allergies Allergy/AdvReac Type Severity Reaction Status Date / Time No Known Allergies Allergy Verified 10/07/19 18:09 Review of Systems ROS Statement: Those systems with pertinent positive or pertinent negative responses have been documented in the HPI. ROS Other: All systems not noted in ROS Statement are negative. Past Medical History Past Medical History: GERD/Reflux, Hyperlipidemia, Hypertension, Rheumatoid Arthritis (RA) Additional Past Medical History / Comment(s): Colitis, pulmonary embolism, rapid heart beat, anxiety History of Any Multi-Drug Resistant Organisms: None Reported Past Surgical History: Adenoidectomy, Appendectomy, Cholecystectomy, Tonsillectomy, Tubal Ligation Additional Past Surgical History / Comment(s): COLONOSCOPY. EGD. D & C X 5. Right oophorectomy Past Anesthesia/Blood Transfusion Reactions: Motion Sickness, Postoperative Nausea & Vomiting (PONV) Past Psychological History: Depression Smoking Status: Former smoker Past Alcohol Use History: None Reported Past Drug Use History: None Reported - Past Family History Mother Family Medical History: Cancer Additional Family Medical History / Comment(s): LEUKEMIA Father Family Medical History: Cancer Additional Family Medical History / Comment(s): Lupus and pancreatic cancer. General Exam Limitations: no limitations General appearance: alert, in no apparent distress Head exam: Present: atraumatic, normocephalic, normal inspection Eye exam: Present: normal appearance, PERRL, EOMI. Absent: scleral icterus, conjunctival injection, periorbital swelling ENT exam: Present: normal exam, mucous membranes moist Neck exam: Present: normal inspection. Absent: tenderness, meningismus, lymphadenopathy Respiratory exam: Present: normal lung sounds bilaterally. Absent: respiratory distress, wheezes, rales, rhonchi, stridor Cardiovascular Exam: Present: regular rate, normal rhythm, normal heart sounds. Absent: systolic murmur, diastolic murmur, rubs, gallop, clicks GI/Abdominal exam: Present: soft, normal bowel sounds. Absent: distended, tenderness, guarding, rebound, rigid Extremities exam: Present: normal inspection, full ROM, normal capillary refill. Absent: tenderness, pedal edema, joint swelling, calf tenderness Back exam: Present: normal inspection Neurological exam: Present: alert, oriented X3, CN II-XII intact Psychiatric exam: Present: normal affect, normal mood Skin exam: Present: warm, dry, intact, normal color. Absent: rash Course Vital Signs 10/07/19 10/07/19 10/07/19 17:05 18:22 18:57 Temperature 98.5 F Pulse Rate 71 68 63 Pulse Rate [ Right Sitting Brachial] Respiratory 18 18 18 Rate Blood Pressure 230/116 198/105 202/112 Blood Pressure [Right Arm Sitting] O2 Sat by Pulse 97 99 98 Oximetry 10/07/19 10/07/19 10/07/19 19:28 21:40 23:04 Temperature Pulse Rate 59 L 64 68 Pulse Rate [ Right Sitting Brachial] Respiratory 18 16 18 Rate Blood Pressure 199/101 161/84 168/94 Blood Pressure [Right Arm Sitting] O2 Sat by Pulse 100 97 97 Oximetry 10/08/19 10/08/19 10/08/19 05:55 08:00 12:00 Temperature 98.7 F Pulse Rate 61 57 L Pulse Rate [ 64 Right Sitting Brachial] Respiratory 16 20 16 Rate Blood Pressure 159/79 147/90 Blood Pressure 154/86 [Right Arm Sitting] O2 Sat by Pulse 96 98 100 Oximetry EKG Findings - EKG Comments: EKG Findings:: EKG demonstrates normal sinus rhythm with 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 MT interval 148. QRS 86. QTC of 428. There are no acute ST segment elevations or depressions concerning for ischemic changes. Medical Decision Making - Medical Decision Making Upon arrival the patient was placed in room 13. She is hooked up to continuous pulse ox and cardiac monitoring. I did review the patient's outpatient CT. I did recommend laboratory studies and a urinalysis. Because the patient's repor darin calf cramping and history of DVT I did repeat an ultrasound of patient's right lower extremity. Laboratory studies demonstrated a normal CBC regulation studies. CMP shows a creatinine of 1.3. Previous was listed as 0.8 in March 2008. Urinalysis shows moderate leukocyte esterase with rare bacteria. Ultrasound of the patient's right lower extremity demonstrates no acute DVT. Because of the patient's abnormal CT results I did call and discuss the case with Dr. Daniels. She states that the patient may remain on her Xarelto and there is no need for heparin drip at this time. She recommended blood pressure control and she will evaluate the patient in the morning. I called and discussed the case with Dr. Cody who accepted admission for the patient. The patient was in agreement with the treatment plan and she is currently awaiting a bed - Lab Data Result diagrams: 10/10/19 08:23 10/10/19 08:23 Lab Results 10/07/19 10/07/19 10/07/19 Range/Units 17:35 17:35 17:35 WBC 9.6 (3.8-10.6) k/uL RBC 4.26 (3.80-5.40) m/uL Hgb 13.5 (11.4-16.0) gm/dL Hct 41.6 (34.0-46.0) % MCV 97.7 (80.0-100.0) fL MCH 31.7 (25.0-35.0) pg MCHC 32.5 (31.0-37.0) g/dL RDW 14.6 (11.5-15.5) % Plt Count 393 (150-450) k/uL Neutrophils % 57 % Lymphocytes % 28 % Monocytes % 7 % Eosinophils % 4 % Basophils % 2 % Neutrophils # 5.4 (1.3-7.7) k/uL Lymphocytes # 2.7 (1.0-4.8) k/uL Monocytes # 0.6 (0-1.0) k/uL Eosinophils # 0.4 (0-0.7) k/uL Basophils # 0.2 (0-0.2) k/uL PT (9.0-12.0) sec INR (<1.2) APTT (22.0-30.0) sec Sodium 139 (137-145) mmol/L Potassium 4.0 (3.5-5.1) mmol/L Chloride 100 (98-107) mmol/L Carbon Dioxide 30 (22-30) mmol/L Anion Gap 9 mmol/L BUN 15 (7-17) mg/dL Creatinine 1.33 H (0.52-1.04) mg/dL Est GFR (CKD-EPI)AfAm 49 (>60 ml/min/1.73 sqM) Est GFR (CKD-EPI)NonAf 43 (>60 ml/min/1.73 sqM) Glucose 85 (74-99) mg/dL Plasma Lactic Acid Tone 1.3 (0.7-2.0) mmol/L Calcium 9.9 (8.4-10.2) mg/dL Total Bilirubin 0.5 (0.2-1.3) mg/dL AST 25 (14-36) U/L ALT 9 (4-34) U/L Alkaline Phosphatase 118 (38-126) U/L Total Protein 7.5 (6.3-8.2) g/dL Albumin 4.1 (3.5-5.0) g/dL Urine Color Urine Appearance (Clear) Urine pH (5.0-8.0) Ur Specific [place] (1.001-1.035) Urine Protein (Negative) Urine Glucose (UA) (Negative) Urine Ketones (Negative) Urine Blood (Negative) Urine Nitrite (Negative) Urine Bilirubin (Negative) Urine Urobilinogen (<2.0) mg/dL Ur Leukocyte Esterase (Negative) Urine WBC (0-5) /hpf Ur Squamous Epith Cells (0-4) /hpf Urine Bacteria (None) /hpf Hyaline Casts (0-2) /lpf Urine Mucus (None) /hpf 10/07/19 10/07/19 Range/Units 17:35 18:24 WBC (3.8-10.6) k/uL RBC (3.80-5.40) m/uL Hgb (11.4-16.0) gm/dL Hct (34.0-46.0) % MCV (80.0-100.0) fL MCH (25.0-35.0) pg MCHC (31.0-37.0) g/dL RDW (11.5-15.5) % Plt Count (150-450) k/uL Neutrophils % % Lymphocytes % % Monocytes % % Eosinophils % % Basophils % % Neutrophils # (1.3-7.7) k/uL Lymphocytes # (1.0-4.8) k/uL Monocytes # (0-1.0) k/uL Eosinophils # (0-0.7) k/uL Basophils # (0-0.2) k/uL PT 10.8 (9.0-12.0) sec INR 1.0 (<1.2) APTT 24.0 (22.0-30.0) sec Sodium (137-145) mmol/L Potassium (3.5-5.1) mmol/L Chloride (98-107) mmol/L Carbon Dioxide (22-30) mmol/L Anion Gap mmol/L BUN (7-17) mg/dL Creatinine (0.52-1.04) mg/dL Est GFR (CKD-EPI)AfAm (>60 ml/min/1.73 sqM) Est GFR (CKD-EPI)NonAf (>60 ml/min/1.73 sqM) Glucose (74-99) mg/dL Plasma Lactic Acid Tone (0.7-2.0) mmol/L Calcium (8.4-10.2) mg/dL Total Bilirubin (0.2-1.3) mg/dL AST (14-36) U/L ALT (4-34) U/L Alkaline Phosphatase (38-126) U/L Total Protein (6.3-8.2) g/dL Albumin (3.5-5.0) g/dL Urine Color Light Yellow Urine Appearance Clear (Clear) Urine pH 7.0 (5.0-8.0) Ur Specific [place] 1.039 H (1.001-1.035) Urine Protein Negative (Negative) Urine Glucose (UA) Negative (Negative) Urine Ketones Negative (Negative) Urine Blood Negative (Negative) Urine Nitrite Negative (Negative) Urine Bilirubin Negative (Negative) Urine Urobilinogen <2.0 (<2.0) mg/dL Ur Leukocyte Esterase Moderate H (Negative) Urine WBC 4 (0-5) /hpf Ur Squamous Epith Cells 1 (0-4) /hpf Urine Bacteria Rare H (None) /hpf Hyaline Casts 1 (0-2) /lpf Urine Mucus Rare H (None) /hpf Disposition Clinical Impression: Abdominal pain, Accelerated hypertension, Renal artery atherosclerosis Disposition: ADMITTED IP TO THIS HOSP Condition: Stable Is patient prescribed a controlled substance at d/c from ED?: No Decision to Admit Reason: Admit from EC Decision Date: 10/07/19 Decision Time: 19:30
[2019-10-07] MEDS ORDERED: hydrALAZINE HCL 20 MG/ML 1 ML VIAL IVP STA (19:14)
[2019-10-07] MEDS ORDERED: NALOXONE 0.4 MG/ML 1 ML VIAL IV PRN (19:30)
[2019-10-07] MEDS ORDERED: ALPRAZolam 0.25 MG TAB PO PRN (19:32)
[2019-10-07] MEDS ORDERED: SUCRALFATE 1 GM TAB PO PRN (19:32)
[2019-10-07] MEDS ORDERED: RIVAROXABAN 20 MG TAB PO STA (19:42)
[2019-10-07] MEDS ORDERED: METOPROLOL SUCCINATE (ER) 25 MG TAB.ER.24H PO STA (19:42)
--- NOTE | 2019-10-07 20:54 | P.HPIM ---
History of Present Illness H&P Date: 10/07/19 Patient is a 63-year-old female with a PMH of rheumatoid arthritis, hypertension, hyperlipidemia, history of DVT and multiple PEs (on Xarelto), and a hiatal hernia presented to the ED with complaints of abdominal pain and headaches. The patient reports that 2 weeks ago, she developed this epigastric discomfort, which would start as a burning sensation in the right ear and would move all the way down towards her epigastric region. She attributed the discomfort to her chronic GERD and would take sucralfate which would always completely resolve her symptoms. The discomfort was not associated with exertion or any particular movements and had no clear inciting factors. The patient reports that 4 days ago, she developed bilateral headaches, pressure- like, with some associated nausea and a single episode of vomiting 3 days ago. At time of the interview, she reports that her headache is a 8 out of 10. She denied visual disturbances, weakness, numbness, shortness of breath, palpitations, diaphoresis, or dizziness. She underwent an extensive elevation in the emergency room. Upon presentation, she was noted to be very hypertensive with blood pressure 230/116. Laboratory evaluation revealed a BUN of 15, creatinine 1.33, WBC count 9.6, hemoglobin 13.5, platelets 393, and lactic acid 1.3. She underwent a CT abdomen pelvis which revealed a significant focal plaque at the origin of the left renal artery causing suspected complete occlusion with new atrophy and diminished function of the left kidney. It also revealed possible mild inflammatory changes at the level of the terminal ileum. A lower extremity venous Doppler revealed no DVTs. EKG reveals normal sinus rhythm at 65 bpm with T-wave inversion in leads V1 and no other ST/T-wave changes noted. As per the emergency room physician, the case was discussed with vascular surgery who recommended that the patient be continued on Xarelto and that they will see the patient in the morning. Review of Systems Pertinent positives and negatives as discussed in HPI, a complete review of systems was performed and all other systems are negative. Past Medical History Past Medical History: GERD/Reflux, Hyperlipidemia, Hypertension, Rheumatoid Arthritis (RA) Additional Past Medical History / Comment(s): Colitis, pulmonary embolism, rapid heart beat, anxiety History of Any Multi-Drug Resistant Organisms: None Reported Past Surgical History: Adenoidectomy, Appendectomy, Cholecystectomy, Tonsillectomy, Tubal Ligation Additional Past Surgical History / Comment(s): COLONOSCOPY. EGD. D & C X 5. Right oophorectomy Past Anesthesia/Blood Transfusion Reactions: Motion Sickness, Postoperative Nausea & Vomiting (PONV) Past Psychological History: Depression Smoking Status: Former smoker Past Alcohol Use History: None Reported Past Drug Use History: None Reported - Past Family History Mother Family Medical History: Cancer Additional Family Medical History / Comment(s): LEUKEMIA Medications and Allergies Home Medications Medication Instructions Recorded Confirmed Type Hydrocodone/Acetaminophen 1 tab PO Q6H PRN 10/30/14 10/07/19 History [Hydrocodone/Acetaminophen 10-325] Methotrexate Sodium [Methotrexate] 15 mg PO FR 10/30/14 10/07/19 History Rivaroxaban [Xarelto] 20 mg PO DAILY 03/30/18 10/07/19 History Sucralfate [Carafate] 1 gm PO QID PRN 03/30/18 10/07/19 History FLUoxetine HCL [PROzac] 20 mg PO DAILY #30 cap 04/01/18 10/07/19 Rx ALPRAZolam [Xanax] 0.25 mg PO Q8HR PRN 10/07/19 10/07/19 History Atorvastatin [Lipitor] 20 mg PO HS 10/07/19 10/07/19 History Celecoxib [CeleBREX] 200 mg PO BID 10/07/19 10/07/19 History Cyclobenzaprine [Flexeril] 10 mg PO HS 10/07/19 10/07/19 History Metoprolol Succinate [Toprol XL] 25 mg PO DAILY 10/07/19 10/07/19 History Omeprazole 40 mg PO DAILY 10/07/19 10/07/19 History Ondansetron Odt [Zofran Odt] 8 mg PO Q8HR 10/07/19 10/07/19 History Temazepam [Restoril] 15 mg PO HS PRN 10/07/19 10/07/19 History predniSONE 2.5 mg PO DAILY 10/07/19 10/07/19 History Allergies Allergy/AdvReac Type Severity Reaction Status Date / Time No Known Allergies Allergy Verified 10/07/19 18:09 Physical Exam Vitals: Vital Signs Temp Pulse Resp BP Pulse Ox 10/07/19 19:28 59 L 18 199/101 100 10/07/19 18:57 63 18 202/112 98 10/07/19 18:22 68 18 198/105 99 10/07/19 17:05 98.5 F 71 18 230/116 97 Intake and Output 10/07/19 10/07/19 10/07/19 06:59 14:59 22:59 Other: Weight 63.503 kg General: non toxic, no distress, appears at stated age, normal weight Derm: no unusual rashes/lesions no unusual ecchymoses, warm, dry Head: atraumatic, normocephalic, symmetric Eyes: EOMI, no lid lag, anicteric sclera, pupils equal round reactive to light ENT: Nose and ears atraumatic, no thrush, no pharyngeal erythema Neck: No thyromegaly, no cervical lymphadenopathy, trachea midline, supple Mouth: no lip lesion, mucus membranes moist Cardiovascular: S1S2 reg, no murmur, positive posterior tibial pulse bilateral, no edema, capillary refill less than 2 seconds Lungs: CTA bilateral, no rhonchi, no rales , no accessory muscle use Abdominal: soft, mild epigastric tenderness to palpation, no guarding, no appreciable organomegaly, normal bowel sounds Ext: no gross muscle atrophy, muscle strength 5 out of 5 in all 4 extremities grossly, no contractures, Neuro: CN II-XI grossly intact, light touch intact all 4 extremities, finger to nose within normal limits, Psych: Alert, oriented, appropriate affect Results CBC & Chem 7: 10/07/19 17:35 10/07/19 17:35 Labs: Abnormal Lab Results - Last 24 Hours (Table) 10/07/19 10/07/19 Range/Units 17:35 18:24 Creatinine 1.33 H (0.52-1.04) mg/dL Ur Specific [place] 1.039 H (1.001-1.035) Ur Leukocyte Esterase Moderate H (Negative) Urine Bacteria Rare H (None) /hpf Urine Mucus Rare H (None) /hpf Assessment and Plan Plan: Hypertensive urgency in setting of left renal artery plaque -Vascular surgery consulted -Continue with Xarelto -Patient given hydralazine 20 mg IV push in the emergency room -C/w home med Lopressor -Will add Norvasc Epigastric abdominal pain with nausea, vomiting, and anorexia -Likely due to chronic Celecoxib use for RA. Patient reports taking it nightly prior to bedtime and on of the stomach -Start Protonix -Consult GI for possible EGD -Hold off on all NSAIDs for now Headache -Likely due to hypertensive urgency -Control blood pressure AYAN, likely due to L renal atrophy -Monitor BMP for now Chronic conditions: Rheumatoid arthritis, hyperlipidemia, history of clots, depression -Continue with home meds DVT prophylaxis -Xarelto The patient is admitted with an anticipated greater than 2 midnight stay for evaluation of HTN urgency, abdominal pain CODE STATUS: Full Code Discussed with: Patient, , daughter Anticipated discharge date: 3-[address]: Home A total of 40 minutes was spent on the care of this complex patient more than 50% of the time was spent in counseling and care coordination.
[2019-10-07] MEDS ORDERED: MELOXICAM 7.5 MG TAB PO SCH (21:00)
[2019-10-07] MEDS: CYCLOBENZAPRINE 10 MG TAB PO SCH (21:22)
[2019-10-07] MEDS: amLODIPine 10 MG TAB PO SCH (21:22)
[2019-10-07] MEDS: ATORVASTATIN 20 MG TAB PO SCH (21:22)
[2019-10-07] MEDS: TEMAZEPAM 15 MG CAP PO PRN (23:53)
[2019-10-08] MEDS ORDERED: ONDANSETRON ODT 8 MG TAB.RAPDIS PO PRN
[2019-10-08] MEDS: PANTOPRAZOLE 40 MG TABLET PO SCH (08:32)
[2019-10-08] MEDS: METOPROLOL SUCCINATE (ER) 25 MG TAB.ER.24H PO SCH (08:49)
[2019-10-08] MEDS: amLODIPine 10 MG TAB PO SCH (08:49)
[2019-10-08] MEDS: predniSONE 2.5 MG TAB PO SCH (08:50)
[2019-10-08] MEDS: FLUoxetine HCL 20 MG CAP PO SCH (08:50)
[2019-10-08] MEDS ORDERED: RIVAROXABAN 20 MG TAB PO SCH (09:00)
--- NOTE | 2019-10-08 11:44 | P.GSCN ---
<Aarti Mccallum - Last Filed: 10/08/19 14:03> History of Present Illness Consult date: 10/08/19 History of present illness: The patient is a 63-year-old female with a past medical history rheumatoid arthritis, hypertension, hyperlipidemia, history of DVT in the right lower extremity and multiple PEs currently on Xeralto. The patient was having abdominal pain in epigastric area for approximately 2 weeks, for whom she has seen Dr. Pham in the primary care setting. He ordered an outpatient CT of the abdomen which showed nonobstructive bowel gas pattern with mild to moderate prominence of fecal material throughout the colon, correlate for fecal stasis. Possible mild inflammatory change at the level of the terminal ileum versus product distention. Also found was moderate atherosclerotic changes of the aorta extending into the branch vessels there is a significant focal plaque at origin of left renal artery causing suspected complete occlusion with new atrophy and diminished function to the left kidney. She was advised to come to the urgency center and a vascular surgical consult was placed for this incidental finding. The patient denies any shortness of breath, chest pain or dyspnea. A venous Doppler was completed which was negative for any DVTs. Current labs are WBC 9.6, hemoglobin 13.5, hematocrit 41.6, platelets 393, PT 10.8, INR 1.0, sodium 139, potassium 4.0, D1 15, creatinine 1.33, GFR 43. Review of Systems Review of systems completed all pertinent positives and negatives as stated in the HPI. Past Medical History Past Medical History: GERD/Reflux, Hyperlipidemia, Hypertension, Rheumatoid Arthritis (RA) Additional Past Medical History / Comment(s): Colitis, pulmonary embolism, rapid heart beat, anxiety History of Any Multi-Drug Resistant Organisms: None Reported Past Surgical History: Adenoidectomy, Appendectomy, Cholecystectomy, Tonsillectomy, Tubal Ligation Additional Past Surgical History / Comment(s): COLONOSCOPY. EGD. D & C X 5. Right oophorectomy Past Anesthesia/Blood Transfusion Reactions: Motion Sickness, Postoperative Nausea & Vomiting (PONV) Past Psychological History: Depression Smoking Status: Former smoker Past Alcohol Use History: None Reported Past Drug Use History: None Reported - Past Family History Mother Family Medical History: Cancer Additional Family Medical History / Comment(s): LEUKEMIA Father Family Medical History: Cancer Additional Family Medical History / Comment(s): Lupus and pancreatic cancer. Medications and Allergies Home Medications Medication Instructions Recorded Confirmed Type Hydrocodone/Acetaminophen 1 tab PO Q6H PRN 10/30/14 10/07/19 History [Hydrocodone/Acetaminophen 10-325] Methotrexate Sodium [Methotrexate] 15 mg PO FR 10/30/14 10/07/19 History Rivaroxaban [Xarelto] 20 mg PO DAILY 03/30/18 10/07/19 History Sucralfate [Carafate] 1 gm PO QID PRN 03/30/18 10/07/19 History FLUoxetine HCL [PROzac] 20 mg PO DAILY #30 cap 04/01/18 10/07/19 Rx ALPRAZolam [Xanax] 0.25 mg PO Q8HR PRN 10/07/19 10/07/19 History Atorvastatin [Lipitor] 20 mg PO HS 10/07/19 10/07/19 History Celecoxib [CeleBREX] 200 mg PO BID 10/07/19 10/07/19 History Cyclobenzaprine [Flexeril] 10 mg PO HS 10/07/19 10/07/19 History Metoprolol Succinate [Toprol XL] 25 mg PO DAILY 10/07/19 10/07/19 History Omeprazole 40 mg PO DAILY 10/07/19 10/07/19 History Ondansetron Odt [Zofran Odt] 8 mg PO Q8HR 10/07/19 10/07/19 History Temazepam [Restoril] 15 mg PO HS PRN 10/07/19 10/07/19 History predniSONE 2.5 mg PO DAILY 10/07/19 10/07/19 History Allergies Allergy/AdvReac Type Severity Reaction Status Date / Time No Known Allergies Allergy Verified 10/07/19 18:09 Surgical - Exam Vital Signs Temp Pulse Resp BP Pulse Ox 98.5 F 71 18 230/116 97 10/07/19 17:05 10/07/19 17:05 10/07/19 17:05 10/07/19 17:05 10/07/19 17:05 General appearance: The patient is alert, oriented, in no acute distress. HET: Head is normocephalic and atraumatic. Pupils are equal and reactive. Oropharynx is clear without lesions. Neck: Supple without lymphadenopathy. Trachea midline. Heart: S1 S2. Regular rate and rhythm. Lungs: No crackles or wheezes are heard. Abdomen: Soft, tender to palpation along epigastric region, nondistended with bowel sounds. No peritoneal signs. No palpable organomegaly or masses. Extremities: Normal skin color and turgor. No cyanosis, rash, ulceration, clubbing, or edema. Radial and pedal pulses are 2/4 bilaterally. Neurological: No focal deficits. Strength and sensation are grossly intact. Results - Labs 10/07/19 17:35 10/07/19 17:35 Abnormal Lab Results - Last 24 Hours (Table) 10/07/19 10/07/19 Range/Units 17:35 18:24 Creatinine 1.33 H (0.52-1.04) mg/dL Ur Specific [place] 1.039 H (1.001-1.035) Ur Leukocyte Esterase Moderate H (Negative) Urine Bacteria Rare H (None) /hpf Urine Mucus Rare H (None) /hpf Diabetes panel 10/07/19 Range/Units 17:35 Sodium 139 (137-145) mmol/L Potassium 4.0 (3.5-5.1) mmol/L Chloride 100 (98-107) mmol/L Carbon Dioxide 30 (22-30) mmol/L BUN 15 (7-17) mg/dL Creatinine 1.33 H (0.52-1.04) mg/dL Glucose 85 (74-99) mg/dL Calcium 9.9 (8.4-10.2) mg/dL AST 25 (14-36) U/L ALT 9 (4-34) U/L Alkaline Phosphatase 118 (38-126) U/L Total Protein 7.5 (6.3-8.2) g/dL Albumin 4.1 (3.5-5.0) g/dL Calcium panel 10/07/19 Range/Units 17:35 Calcium 9.9 (8.4-10.2) mg/dL Albumin 4.1 (3.5-5.0) g/dL Pituitary panel 10/07/19 Range/Units 17:35 Sodium 139 (137-145) mmol/L Potassium 4.0 (3.5-5.1) mmol/L Chloride 100 (98-107) mmol/L Carbon Dioxide 30 (22-30) mmol/L BUN 15 (7-17) mg/dL Creatinine 1.33 H (0.52-1.04) mg/dL Glucose 85 (74-99) mg/dL Calcium 9.9 (8.4-10.2) mg/dL Adrenal panel 10/07/19 Range/Units 17:35 Sodium 139 (137-145) mmol/L Potassium 4.0 (3.5-5.1) mmol/L Chloride 100 (98-107) mmol/L Carbon Dioxide 30 (22-30) mmol/L BUN 15 (7-17) mg/dL Creatinine 1.33 H (0.52-1.04) mg/dL Glucose 85 (74-99) mg/dL Calcium 9.9 (8.4-10.2) mg/dL Total Bilirubin 0.5 (0.2-1.3) mg/dL AST 25 (14-36) U/L ALT 9 (4-34) U/L Alkaline Phosphatase 118 (38-126) U/L Total Protein 7.5 (6.3-8.2) g/dL Albumin 4.1 (3.5-5.0) g/dL Assessment and Plan Assessment: 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 Daniels. At this time there is no indication for any vascular surgical intervention. Continue with Xeralto. Keep strict blood pressure control. Consider recommendation to nephrology if worsening of kidney function. Will order renal artery ultrasound. Await further recommendations. Thank you for this consultation and allowing us to participate in the plan of care this patient during her hospital stay. The above dictated assessment and findings were discussed with Dr. Daniels. The impression and plan of care have been directed as dictated. <Mireya Daniels - Last Filed: 10/08/19 14:31> Surgical - Exam Vital Signs Temp Pulse Resp BP Pulse Ox 98.5 F 71 18 230/116 97 10/07/19 17:05 10/07/19 17:05 10/07/19 17:05 10/07/19 17:05 10/07/19 17:05 Results - Labs 10/07/19 17:35 10/07/19 17:35 Abnormal Lab Results - Last 24 Hours (Table) 10/07/19 10/07/19 Range/Units 17:35 18:24 Creatinine 1.33 H (0.52-1.04) mg/dL Ur Specific [place] 1.039 H (1.001-1.035) Ur Leukocyte Esterase Moderate H (Negative) Urine Bacteria Rare H (None) /hpf Urine Mucus Rare H (None) /hpf Diabetes panel 10/07/19 Range/Units 17:35 Sodium 139 (137-145) mmol/L Potassium 4.0 (3.5-5.1) mmol/L Chloride 100 (98-107) mmol/L Carbon Dioxide 30 (22-30) mmol/L BUN 15 (7-17) mg/dL Creatinine 1.33 H (0.52-1.04) mg/dL Glucose 85 (74-99) mg/dL Calcium 9.9 (8.4-10.2) mg/dL AST 25 (14-36) U/L ALT 9 (4-34) U/L Alkaline Phosphatase 118 (38-126) U/L Total Protein 7.5 (6.3-8.2) g/dL Albumin 4.1 (3.5-5.0) g/dL Calcium panel 10/07/19 Range/Units 17:35 Calcium 9.9 (8.4-10.2) mg/dL Albumin 4.1 (3.5-5.0) g/dL Pituitary panel 10/07/19 Range/Units 17:35 Sodium 139 (137-145) mmol/L Potassium 4.0 (3.5-5.1) mmol/L Chloride 100 (98-107) mmol/L Carbon Dioxide 30 (22-30) mmol/L BUN 15 (7-17) mg/dL Creatinine 1.33 H (0.52-1.04) mg/dL Glucose 85 (74-99) mg/dL Calcium 9.9 (8.4-10.2) mg/dL Adrenal panel 10/07/19 Range/Units 17:35 Sodium 139 (137-145) mmol/L Potassium 4.0 (3.5-5.1) mmol/L Chloride 100 (98-107) mmol/L Carbon Dioxide 30 (22-30) mmol/L BUN 15 (7-17) mg/dL Creatinine 1.33 H (0.52-1.04) mg/dL Glucose 85 (74-99) mg/dL Calcium 9.9 (8.4-10.2) mg/dL Total Bilirubin 0.5 (0.2-1.3) mg/dL AST 25 (14-36) U/L ALT 9 (4-34) U/L Alkaline Phosphatase 118 (38-126) U/L Total Protein 7.5 (6.3-8.2) g/dL Albumin 4.1 (3.5-5.0) g/dL Assessment and Plan Plan: Patient seen and examined. Discussed with the daughter and the patient. She has been having new-onset headaches and high blood pressure for the past week. She's also been having increased nausea and epigastric/chest pain and tightness along with a radiating tingling of her right neck. She underwent outpatient computed tomography scan of the incidental finding of the renal artery occlusion on the left with atrophy of the kidney as compared to a scan in 2017. She denies any flank pains. She denies any arrhythmias which she is on Xarelto for a history of DVT with PE. At this time given the timing of her symptoms, I do not believe there is any benefit of renal salvage. She likely went from a chronic stenosis to complete occlusion, we will order an ultrasound to evaluate for any possible flow into the parenchyma as there is contrast visualized. Follow labs. Maintain blood pressure control. Continue anticoagulation. This was discussed with the family who seemingly understands and is willing to proceed
[2019-10-08] MEDS ORDERED: PEG 3350-NA SULF,BICARB,CL/KCL 4,000 ML BOTTLE PO ONE (12:39)
[2019-10-08] MEDS: HYDROcodone/APAP 10-325MG 1 EACH TAB PO PRN (13:16)
[2019-10-08 14:32] VITALS: BMI 22.6
--- NOTE | 2019-10-08 15:52 | P.PN ---
Subjective Progress Note Date: 10/08/19 Principal diagnosis: Patient is seen in follow-up for epigastric abdominal pain rule out peptic ulcer disease, renal artery stenosis Patient seen and examined she reports that her epigastric abdominal pain is better controlled now. She could not tolerate regular diet and she is asking for full liquid diet. She denies any chest pain or trouble breathing. She denies any fevers chills coughing nausea vomiting she denies any GI bleeding Objective - Vital Signs Vital signs: Vital Signs Temp 98.0 F 10/08/19 15:13 Pulse 70 10/08/19 15:17 Resp 16 10/08/19 15:17 BP 167/84 10/08/19 15:13 Pulse Ox 98 10/08/19 15:13 Intake & Output 10/07/19 10/08/19 10/08/19 18:59 06:59 18:59 Weight 63.503 kg 63.503 kg - Exam Constitutional: vital signs stable, Not in acute distress, pleasant, conversant Lungs: Clear to auscultation bilaterally, clear to percussion, normal respiratory effort Cardiovascular: Regular rate and rhythm, no murmurs, no gallops, no rubs, no peripheral edema Gastrointestinal: Soft, no tenderness to palpation, bowel sounds positive, Extremities: No digital cyanosis or clubbing, peripheral pulses palpable and equal , no calf muscle tenderness Psych: Alert, oriented to place, person and time, appropriate affect, intact judgment - Labs CBC & Chem 7: 10/07/19 17:35 10/07/19 17:35 Labs: Abnormal Lab Results - Last 24 Hours (Table) 10/07/19 10/07/19 Range/Units 17:35 18:24 Creatinine 1.33 H (0.52-1.04) mg/dL Ur Specific [place] 1.039 H (1.001-1.035) Ur Leukocyte Esterase Moderate H (Negative) Urine Bacteria Rare H (None) /hpf Urine Mucus Rare H (None) /hpf Assessment and Plan Assessment: This is 63 L-year-old lady with hiatal hernia, hypertension poorly-controlled, hyperlipidemia. Comes in for epigastric abdominal pain and headaches. She has long history of uncontrolled acid reflux disease and history of hiatal hernia. She had EGD done 5 years ago was told that she has hiatal hernia that time. She also found to have acute kidney injury during this hospital stay and imaging suggested some degree of occlusion of the left renal artery currently undergoing further workup to assess the degree of stenosis and any recommendations for any surgical i ntervention. Also await GI evaluation for any recommendations regarding EGD. Plan: Hypertensive malignant, with headache, and acute kidney injury, with left renal artery plaque Vascular surgery evaluated the patient did not feel patient needs any immediate surgical intervention at this time further workup was ordered to assess renal artery blood flow Continue with home blood pressure medication Lopressor Norvasc was added Hydralazine when necessary for systolic pressure above [address] [place] when necessary for pain Optimize blood pressure control Epigastric abdominal pain rule out optic ulcer disease GI consult for possible EGD History of hiatal hernia Patient uses celecoxib for rheumatoid arthritis PPI Avoid NSAIDs as possible Acute kidney injury, nonoliguric This could be secondary to hypertension uncontrolled and left renal artery plaque, and chronic use of NSAIDs Avoid nephrotoxic meds Monitor urine output Follow-up renal function DVT prophylaxis patient on Xarelto for history of DVT and PE Anticipated discharge to home within 1-2 days
[2019-10-08] MEDS: ACETAMINOPHEN TAB 325 MG TAB PO PRN (17:19)
--- NOTE | 2019-10-08 20:31 | P.CONS ---
History of Present Illness - Reason for Consult Consult date: 10/08/19 Abdominal pain Requesting physician: Jess Gomez - Chief Complaint Pain, headache - History of Present Illness 63-year-old female with past medical history significant for rheumatoid arthritis, hypertension, hyperlipidemia, prior to DVT and PE on anticoagulation therapy with Xarelto who presented with complaints of abdominal pain. The patient reports severe epigastric abdominal pain. Pain is present for the past few weeks. She reports associated nausea with 1 episode of vomiting. The patient does have a known history of irritable ulcer syndrome with constipation. She reports that over this time she's had worsening constipation with no bowel movement in the past 5 days. She also reports a history of hiatal hernia and GERD with a remote history of EGD in 10/26/2014 with findings of gastritis and a hiatal hernia. Her last colonoscopy was approximately in 2009 and she believes this was normal. She denies any signs or symptoms of GI bleeding. She does not take any medication for chronic constipation at home. On presentation she was noted to have WBC 9.6, hemoglobin 13.5, platelet count 393,000, total bilirubin 0.5, alkaline phosphatase 118, AST 25 and ALT 9 with computed tomography scan of the abdomen significant for a left renal artery occlusion as well as significant cecal matter noted in the colon. Review of Systems REVIEW OF SYSTEMS: CONSTITUTIONAL: Denies any fevers, chills, weight change or fatigue. CARDIOVASCULAR: Denies any chest pain, palpitations high or low blood pressures RESPIRATORY: Denies any shortness of breath, hemoptysis or cough. GENITOURINARY: No dysuria or hematuria. MUSCULOSKELETAL: No weakness reported. SKIN: Denies any new rashes or lesions, jaundice or pallor. PSYCHIATRIC: Denies any depression or anxiety. NEUROLOGY: Denies headache, denies any new focal deficits. EARS/NOSE/THROAT: No recent hearing change, congestion, nasal discharge or sore throat. EYES: No pain in eyes, discharge or change in vision. GASTROINTESTINAL: As per HPI. Past Medical History Past Medical History: GERD/Reflux, Hyperlipidemia, Hypertension, Rheumatoid Arthritis (RA) Additional Past Medical History / Comment(s): Colitis, pulmonary embolism, rapid heart beat, anxiety History of Any Multi-Drug Resistant Organisms: None Reported Past Surgical History: Adenoidectomy, Appendectomy, Cholecystectomy, Tonsillectomy, Tubal Ligation Additional Past Surgical History / Comment(s): COLONOSCOPY. EGD. D & C X 5. Right oophorectomy Past Anesthesia/Blood Transfusion Reactions: Motion Sickness, Postoperative Nausea & Vomiting (PONV) Past Psychological History: Depression Smoking Status: Former smoker Past Alcohol Use History: None Reported Past Drug Use History: None Reported - Past Family History Mother Family Medical History: Cancer Additional Family Medical History / Comment(s): LEUKEMIA Father Family Medical History: Cancer Additional Family Medical History / Comment(s): Lupus and pancreatic cancer. Medications and Allergies Home Medications Medication Instructions Recorded Confirmed Type Hydrocodone/Acetaminophen 1 tab PO Q6H PRN 10/30/14 10/07/19 History [Hydrocodone/Acetaminophen 10-325] Methotrexate Sodium [Methotrexate] 15 mg PO FR 10/30/14 10/07/19 History Rivaroxaban [Xarelto] 20 mg PO DAILY 03/30/18 10/07/19 History Sucralfate [Carafate] 1 gm PO QID PRN 03/30/18 10/07/19 History FLUoxetine HCL [PROzac] 20 mg PO DAILY #30 cap 04/01/18 10/07/19 Rx ALPRAZolam [Xanax] 0.25 mg PO Q8HR PRN 10/07/19 10/07/19 History Atorvastatin [Lipitor] 20 mg PO HS 10/07/19 10/07/19 History Celecoxib [CeleBREX] 200 mg PO BID 10/07/19 10/07/19 History Cyclobenzaprine [Flexeril] 10 mg PO HS 10/07/19 10/07/19 History Metoprolol Succinate [Toprol XL] 25 mg PO DAILY 10/07/19 10/07/19 History Omeprazole 40 mg PO DAILY 10/07/19 10/07/19 History Ondansetron Odt [Zofran Odt] 8 mg PO Q8HR 10/07/19 10/07/19 History Temazepam [Restoril] 15 mg PO HS PRN 10/07/19 10/07/19 History predniSONE 2.5 mg PO DAILY 10/07/19 10/07/19 History Allergies Allergy/AdvReac Type Severity Reaction Status Date / Time No Known Allergies Allergy Verified 10/07/19 18:09 Physical Exam Vitals: Vital Signs Temp Pulse Resp BP Pulse Ox 10/08/19 08:00 57 L 20 147/90 98 10/08/19 05:55 61 16 159/79 96 10/07/19 23:04 68 18 168/94 97 10/07/19 21:40 64 16 161/84 97 10/07/19 19:28 59 L 18 199/101 100 10/07/19 18:57 63 18 202/112 98 10/07/19 18:22 68 18 198/105 99 10/07/19 17:05 98.5 F 71 18 230/116 97 Intake and Output 10/07/19 10/08/19 10/08/19 22:59 06:59 14:59 Other: Weight 63.503 kg On physical examination, patient appears comfortable in no apparent distress. HEAD: Normocephalic, atraumatic. EYES: No scleral icterus. No conjunctival injection. MOUTH: No lesions, tongue midline. NECK: Trachea midline, no gross abnormalities. CHEST: Clear to auscultation with no wheezing or rhonchi appreciated. HEART: Regular rate and rhythm. ABDOMEN: Soft, mildly tender to palpation. Bowel sounds are positive. No organomegaly. No guarding or rigidity. EXTREMITIES: No pedal edema. SKIN: No rashes, no jaundice. NEUROLOGIC: Alert and oriented x3. No focal deficits. Results CBC & Chem 7: 10/07/19 17:35 10/07/19 17:35 Labs: Abnormal Lab Results - Last 24 Hours (Table) 10/07/19 10/07/19 Range/Units 17:35 18:24 Creatinine 1.33 H (0.52-1.04) mg/dL Ur Specific [place] 1.039 H (1.001-1.035) Ur Leukocyte Esterase Moderate H (Negative) Urine Bacteria Rare H (None) /hpf Urine Mucus Rare H (None) /hpf CT scan - abdomen: report reviewed (Mild to moderate stool burden on computed tomography scan of the abdomen with other findings also noted) Assessment and Plan (1) Abdominal pain Narrative/Plan: 63-year-old female with multiple medical comorbidities including irritable bowel syndrome who presents to the hospital with worsening abdominal pain over the past few weeks. Patient was noted on computed tomography scan of the abdomen to have moderate colonic fecal burden and states it has been 5 days since her last bowel movement. She reports abdominal pain is predominantly in the epigastric region of her abdomen and severe in nature. No nausea or vomiting associated with her symptoms. Last EGD was in 2014 and significant for a hiatal hernia and gastritis. Last colonoscopy was approximately in 2009 and normal per her recollection. She denies any signs or symptoms of GI bleeding. Unknown e tiology of symptoms, may be related to constipation, underlying irritable bowel syndrome, with plan for EGD to rule out peptic ulcer disease or other upper GI pathology. Current Visit: Yes Status: Acute Code(s): R10.9 - UNSPECIFIED ABDOMINAL PAIN SNOMED Code(s): 71571688 (2) Irritable bowel syndrome with constipation Current Visit: Yes Status: Acute Code(s): K58.1 - IRRITABLE BOWEL SYNDROME WITH CONSTIPATION SNOMED Code(s): 090958845 Plan: Supportive care Okay for diet as tolerated Nothing by mouth after midnight Continue Protonix daily Computed tomography scan of the abdomen reviewed [place] has been ordered with patient instructed to drink as much of the medication as needed to have 3 bowel movements X-ray of abdomen tomorrow morning to assess stool burden Plan for EGD tomorrow for further evaluation Discussed initiation of bowel regimen in the outpatient setting to avoid constipation Thank you for allowing us to participate in the care of the patient we will continue to follow
[2019-10-08] MEDS: ATORVASTATIN 20 MG TAB PO SCH (20:33)
[2019-10-08] MEDS: CYCLOBENZAPRINE 10 MG TAB PO SCH (20:33)
[2019-10-08] MEDS: TEMAZEPAM 15 MG CAP PO PRN (22:35)
[2019-10-09] MEDS: PANTOPRAZOLE 40 MG TABLET PO SCH (05:11)
[2019-10-09 06:51] LABS: Basophils # (A) 0.1 k/uL (0-0.2); Basophils % (A) 1 %; Eosinophils # (A) 0.4 k/uL (0-0.7); Eosinophils % (A) 6 %; HCT 41.9 % (34.0-46.0); HGB 13.6 gm/dL (11.4-16.0); Lymphocytes # (A) 2.2 k/uL (1.0-4.8); Lymphocytes % (A) 32 %; MCH 31.8 pg (25.0-35.0); MCHC 32.4 g/dL (31.0-37.0); MCV 97.9 fL (80.0-100.0); Mean Platelet Volume 7.5; Monocytes # (A) 0.5 k/uL (0-1.0); Monocytes % (A) 8 %; Neutrophils # (A) 3.5 k/uL (1.3-7.7); Neutrophils % (A) 51 %; Platelet Count 379 k/uL (150-450); RBC 4.28 m/uL (3.80-5.40); RDW 14.3 % (11.5-15.5)
[2019-10-09 07:03] LABS: Calcium 9.5 mg/dL (8.4-10.2); Potassium 3.9 mmol/L (3.5-5.1)
--- NOTE | 2019-10-09 07:40 | XR ---
EXAMINATION TYPE: XR abdomen 2V DATE OF EXAM: 10/09/2019 6:21 AM CLINICAL HISTORY: Constipation and abdominal pain TECHNIQUE: Single supine KUB image of the abdomen is obtained. COMPARISON: CT abdomen pelvis dated 10/07/2019. FINDINGS: Oral contrast retained from the recent exam of 10/07/2019 is seen within the transverse and right hemicolon. Liver is elongated extending near the iliac crest approaching criteria for hepatomeg melia. Surgical clips are seen within the right upper quadrant and right lower quadrant. No dilated lar ge or small bowel. Large degree colonic fecal stasis. Lung bases are well aerated. IMPRESSION: Large burden colonic fecal stasis throughout the colon with oral contrast retained in the transverse and right hemicolon from the CT of 10/07/2019. Increased colonic transit time, however no dilated large or small bowel to suggest obstruction.
--- NOTE | 2019-10-09 08:33 | US ---
EXAMINATION TYPE: US renal artery duplex complete DATE OF EXAM: 10/09/2019 COMPARISON: CT 10/07/2019 CLINICAL HISTORY: Occlusion of left renal artery seen on abdominal CT. MEASUREMENTS: RENAL SIZE: Rt Kidney: 9.7 x 3.3 x 4.1cm Lt Kidney: 6.2 x 2.7 x 3.0cm RESISTANCE INDEX Right: 0.73 Left: -- RA/AO RATIO (< 3.5 ) Right: 1.6 Left: -- RA VELOCITY ( < 180 cm/s) Right: 153cm/s Left: -- Right renal artery appears wnl. Right kidney appears wnl. Left kidney atrophied. The only flow ultrasound could poultry picker in the left kidney was some peripheral venous flow with power doppler. IMPRESSION: 1. 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 Left renal atrophy is also seen sugge sting chronic occlusion. 2. No significant renal arterial stenosis on the right.
--- NOTE | 2019-10-09 10:53 | P.PN ---
Subjective Progress Note Date: 10/09/19 Patient is seen and evaluated this morning without any changes through the night. She is scheduled for EGD this afternoon for epigastric pain and nausea vomiting. Objective - Vital Signs Vital signs: Vital Signs Temp 97.5 F L 10/09/19 08:00 Pulse 58 L 10/09/19 08:00 Resp 14 10/09/19 08:00 BP 146/81 10/09/19 08:00 Pulse Ox 95 10/09/19 08:00 Intake & Output 10/08/19 10/09/19 10/09/19 18:59 06:59 18:59 Intake Total 660 Output Total 280 Balance 660 -280 Weight 63.503 kg 61.2 kg Intake: Oral 660 Output: Urine 280 Other: Voiding Method Toilet Toilet # Voids 1 # Bowel Movements 1 - Exam General appearance: The patient is alert, oriented, in no acute distress. HET: Head is normocephalic and atraumatic Neck: Supple Heart: S1 S2. Regular rate and rhythm. Lungs: No crackles or wheezes are heard. Abdomen: Soft, epigastric region TTP, nondistended with bowel sounds. No peritoneal signs. No palpable organomegaly or masses. Extremities: Normal skin color and turgor. No cyanosis, rash, ulceration, clubbing, or edema. Radial and pedal pulses are 2/4 bilaterally. 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 Daniels. There is no indication for vascular surgical intervention. Continue with Xeralto. Keep strict blood pressure control. Consider recommendation to nephrology if worsening of kidney function. Patient instructed to avoid nephrotoxins. The above dictated assessment and findings were discussed with Dr. Daniels. The impression and plan of care have been directed as dictated.
[2019-10-09] MEDS ORDERED: LIDOCAINE 1% INJ 10MG/ML (20 ML MDV) ONE (13:33)
[2019-10-09] MEDS ORDERED: MIDAZOLAM 2 MG/2 ML VIAL ONE (13:33)
[2019-10-09] MEDS ORDERED: PROPOFOL 10 MG/ML 20 ML VIAL IV ONE (13:33)
[2019-10-09] MEDS ORDERED: fentaNYL (PF) 50 MCG/ML 2 ML AMP ONE (13:33)
[2019-10-09] MEDS ORDERED: SODIUM CHLORIDE 0.9% 500 ML 500 ML IV ONE (13:36)
--- NOTE | 2019-10-09 13:58 | P.PCN ---
Date of Procedure: 10/09/19 Description of Procedure: BRIEF HISTORY: 63-year-old female with multiple medical comorbidities including irritable bowel syndrome who presents to the hospital with worsening abdominal pain over the past few weeks. Patient was noted on computed tomography scan of the abdomen to have moderate colonic fecal burden and states it has been 5 days since her last bowel movement. She reports abdominal pain is predominantly in the epigastric region of her abdomen and severe in nature. No nausea or vomiting associated with her symptoms. Last EGD was in 2014 and significant for a hiatal hernia and gastritis. Last colonoscopy was approximately in 2009 and normal per her recollection. She denies any signs or symptoms of GI bleeding. PROCEDURE PERFORMED: Esophagogastroduodenoscopy with biopsy. PREOPERATIVE DIAGNOSIS: Epigastric abdominal pain. ESTIMATED BLOOD LOSS: Minimal. IV sedation per anesthesia. PROCEDURE: After informed consent was obtained, the patient was brought into the endoscopy unit. IV sedation was administered by Anesthesia under continuous monitoring. Initially the Olympus GIF-190 video endoscope was inserted into the mouth. Esophagus intubated without any difficulty. It was gradually advanced into the stomach and duodenum and carefully examined. The bulb and the second part of the duodenum appeared normal, with biopsies taken to rule out celiac sprue. The scope at this time was withdrawn to the stomach, adequately insufflated with air, and upon careful examination, mucosa of the antrum, body, cardia and the fundus appeared normal, except for linear erythema in the antrum and body suggestive of mild gastritis with biopsies taken. The scope was then withdrawn into the esophagus. The GE junction was located at 37 cm from the incisors and biopsied to rule out reflux esophagitis. The esophagus appeared normal. There were no erosions or ulcerations seen and the patient tolerated the procedure well. IMPRESSION: 1. Mild gastritis antrum and body, biopsied. 2. Biopsies of the duodenum and GE junction. RECOMMENDATIONS: The findings of this examination were discussed with the patient. Okay to resume diet. Okay to resume medications. Await pathology from biopsies.
[2019-10-09] MEDS ORDERED: MAGNESIUM CITRATE 296 ML BOTTLE PO ONE (14:00)
[2019-10-09] MEDS: METOPROLOL SUCCINATE (ER) 25 MG TAB.ER.24H PO SCH (14:52)
[2019-10-09] MEDS: RIVAROXABAN 15 MG TAB PO SCH (14:52)
[2019-10-09] MEDS: amLODIPine 10 MG TAB PO SCH (14:53)
[2019-10-09] MEDS: ACETAMINOPHEN TAB 325 MG TAB PO PRN (14:53)
[2019-10-09] MEDS: FLUoxetine HCL 20 MG CAP PO SCH (14:53)
[2019-10-09] MEDS: ONDANSETRON ODT 8 MG TAB.RAPDIS PO SCH ×3 (14:54→23:11)
[2019-10-09] MEDS: HYDROcodone/APAP 10-325MG 1 EACH TAB PO PRN ×2 (14:54→20:28)
[2019-10-09] MEDS: predniSONE 2.5 MG TAB PO SCH (14:55)
[2019-10-09] MEDS: CYCLOBENZAPRINE 10 MG TAB PO SCH (20:28)
[2019-10-09] MEDS: ATORVASTATIN 20 MG TAB PO SCH (20:28)
--- NOTE | 2019-10-09 22:26 | P.PN ---
Progress Note - Text Progress Note Date: 10/09/19 Presenting complaint: Epigastric pain Interval history: This pleasant 63-year-old patient, Romel Pham has a known history of rheumatoid arthritis. For long time she's been on methotrexate and Celebrex. For close to 2 weeks patient is having increasing epigastric pain. Hardly able to keep anything down. Food makes it much worse. Patient also had a computed tomography scan that showed an atrophied left kidney and a complete occlusion of the left renal artery. She has a history of PE and DVT for which she takes Xarelto. Today-sitting up in bed. Not in distress. at the bedside. Epigastric discomfort still present. Was due to "on for EGD later this afternoon. Review of systems: Was done for constitutional, cardiovascular, GI, pulmonary. relevant finding as above Active Medications Acetaminophen (Tylenol Tab) 650 mg PO Q6HR PRN PRN Reason: Fever and/ or Pain Last Admin: 10/09/19 14:53 Dose: 650 mg Documented by: Hydrocodone Bitart/Acetaminophen ([place] 10) 1 each PO Q6H PRN PRN Reason: Pain Last Admin: 10/09/19 20:28 Dose: 1 each Documented by: Alprazolam (Xanax) 0.25 mg PO Q8HR PRN PRN Reason: Anxiety Amlodipine Besylate (Norvasc) 10 mg PO DAILY [facility] Last Admin: 10/09/19 14:53 Dose: 10 mg Documented by: Atorvastatin Calcium (Lipitor) 20 mg PO [facility] Last Admin: 10/09/19 20:28 Dose: 20 mg Documented by: Cyclobenzaprine HCl (Flexeril) 10 mg PO [facility] Last Admin: 10/09/19 20:28 Dose: 10 mg Documented by: Fluoxetine HCl (Prozac) 20 mg PO DAILY [facility] Last Admin: 10/09/19 14:53 Dose: 20 mg Documented by: Methotrexate (Methotrexate) 15 mg PO [facility] Metoprolol Succinate (Toprol Xl) 25 mg PO DAILY [facility] Last Admin: 10/09/19 14:52 Dose: 25 mg Documented by: Naloxone HCl (Narcan) 0.2 mg IV Q2M PRN PRN Reason: Opioid Reversal Ondansetron HCl (Zofran Odt) 8 mg PO Q8HR [facility] Last Admin: 10/09/19 15:01 Dose: Not Given Documented by: Pantoprazole Sodium (Protonix) 40 mg PO AC-BRKFST [facility] Last Admin: 10/09/19 05:11 Dose: Not Given Documented by: Prednisone () 2.5 mg PO DAILY [facility] Last Admin: 10/09/19 14:55 Dose: Not Given Documented by: Rivaroxaban (Xarelto) 15 mg PO DAILY [facility] Last Admin: 10/09/19 14:52 Dose: 15 mg Documented by: Sucralfate (Carafate) 1 gm PO QID PRN PRN Reason: ULCERS Temazepam (Restoril) 15 mg PO HS PRN PRN Reason: Insomnia Last Admin: 10/08/19 22:35 Dose: 15 mg Documented by: On examination: VITAL SIGNS: 97.7, 71, 16, 155/70, 93% room air GENERAL APPEARANCE: Sitting up in bed, not in distress. HEENT: Normal external appearance of nose and ear. Oral cavity normal EYES: Pupils equal. Conjunctiva normal. NECK: JVD not raised. Mass not palpable. RESPIRATORY: Respiratory effort normal. Lungs clear to auscultation. CARDIOVASCULAR: First and second sounds normal. No edema. ABDOMEN: Soft. Epigastric tenderness, no guarding or rigidity Liver and spleen not palpable. No mass palpable. PSYCHIATRY: Alert and oriented x3. Mood and affect normal. INVESTIGATIONS, reviewed in the clinical context: White count 7 hemoglobin 13.6 potassium 3.9 creatinine 1.24 Previous testing: CT abdomen pelvis with contrast-focal plaque causing complete occlusion of left renal artery and atrophic left kidney -Doppler ultrasound left lower extremity negative for DVT EKG tracing personally reviewed by me-no sinus rhythm Assessment: -This is a patient whose on Xarelto and Celebrex having significant tenderness in the epigastric area and pain and the pain is much worse with eating. 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 Found to have significant gastritis. Earlier had discussed with the patient that we'll have to stop the patient Celebrex and put the patient on PPIs and continued continue with anticoagulation if there is no bleeding also was found.
[2019-10-09] MEDS: TEMAZEPAM 15 MG CAP PO PRN (23:11)
[2019-10-10 05:36] VITALS: RESP 18
[2019-10-10] MEDS: PANTOPRAZOLE 40 MG TABLET PO SCH (06:26)
[2019-10-10] MEDS: amLODIPine 10 MG TAB PO SCH (09:59)
[2019-10-10] MEDS: FLUoxetine HCL 20 MG CAP PO SCH (10:00)
[2019-10-10] MEDS: METOPROLOL SUCCINATE (ER) 25 MG TAB.ER.24H PO SCH (10:00)
[2019-10-10] MEDS: predniSONE 2.5 MG TAB PO SCH (10:00)
[2019-10-10] MEDS: ACETAMINOPHEN TAB 325 MG TAB PO PRN (10:01)
[2019-10-10] MEDS: RIVAROXABAN 15 MG TAB PO SCH (10:01)
[2019-10-10] MEDS: ONDANSETRON ODT 8 MG TAB.RAPDIS PO SCH (10:03)
[2019-10-10 10:04] LABS: Albumin 4.1 g/dL (3.5-5.0); Calcium 9.8 mg/dL (8.4-10.2); Potassium 4.2 mmol/L (3.5-5.1); Total Bilirubin 0.9 mg/dL (0.2-1.3); Total Protein 7.5 g/dL (6.3-8.2)
--- NOTE | 2019-10-10 10:11 | P.PN ---
Subjective Progress Note Date: 10/10/19 Patient is seen and evaluated this morning without any changes through the night. She underwent an EGD yesterday which showed gastritis. The patient states she's had continual headaches although not as severe as when he was admitted. She states epigastric pain has improved. She denies any chest pain o r shortness of breath. Her pressures have been stable through the night. Objective - Vital Signs Vital signs: Vital Signs Temp 97.9 F 10/10/19 08:59 Pulse 78 10/10/19 08:59 Resp 18 10/10/19 09:16 BP 180/90 10/10/19 08:59 Pulse Ox 98 10/10/19 08:59 Intake & Output 10/09/19 10/10/19 10/10/19 18:59 06:59 18:59 Intake Total 400 210 Output Total 300 Balance 100 210 Weight 61 kg Intake: IV 200 10 Invasive Line 1 10 Oral 200 200 Output: Urine 300 Other: Voiding Method Toilet Toilet Toilet # Voids 2 # Bowel Movements 6 - Exam General appearance: The patient is alert, oriented, in no acute distress. HET: Head is normocephalic and atraumatic Neck: Supple Heart: S1 S2. Regular rate and rhythm. Lungs: No crackles or wheezes are heard. Abdomen: Soft, nontender, nondistended with bowel sounds. No peritoneal signs. No palpable organomegaly or masses. Extremities: Normal skin color and turgor. No cyanosis, rash, ulceration, clubbing, or edema. Radial and pedal pulses are 2/4 bilaterally. 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 Daniels discuss again with patient the chronic nature of the occlusion and no blood flow to the kidney cannot be repaired. Continue with Xeralto. Keep strict blood pressure control. Consider recommendation to nephrology if worsening of kidney function. Patient instructed to avoid nephrotoxins. No fu rther indication for any vascular surgical interventions we will sign off at this time. Please don't hesitate to contact us if needed further. The above dictated assessment and findings were discussed with Dr. Daniels. The impression and plan of care have been directed as dictated.
[2019-10-10 10:12] LABS: HCT 43.1 % (34.0-46.0); HGB 14.1 gm/dL (11.4-16.0); MCHC 32.8 g/dL (31.0-37.0); MCV 97.5 fL (80.0-100.0); Mean Platelet Volume 7.8; Platelet Count 465 k/uL (150-450); RBC 4.42 m/uL (3.80-5.40); RDW 14.1 % (11.5-15.5); WBC 8.9 k/uL (3.8-10.6)
[2019-10-10 12:06] VITALS: BP 133/88; PULSE 81; TEMP 98.3
--- NOTE | 2019-10-10 22:30 | P.DS ---
Providers Date of admission: 10/07/19 19:30 Expected date of discharge: 10/10/19 Attending physician: Harsh Powell Consults: 10/07/19 19:31 Consult Physician Urgent Consulting Provider: Mireya Daniels Consult Reason/Comments: left renal artery occlusion Do you want consulting provider notified?: Yes 10/07/19 20:53 Consult Physician Urgent Consulting Provider: Dari Nelson Consult Reason/Comments: Suspected PUD, gastritis Do you want consulting provider notified?: Yes Primary care physician: Romel Homer [facility] Course: Presenting complaint: Epigastric pain Hospital course: This pleasant 63-year-old patient, Romel Pham has a known history of rheumatoid arthritis. For long time she's been on methotrexate and Celebrex. For close to 2 weeks patient is having increasing epigastric pain. Hardly able to keep anything down. Food makes it much worse. Patient also had a computed tomography scan that showed an atrophied left kidney and a complete occlusion of the left renal artery. She has a history of PE and DVT for which she takes Xarelto. EGD was done that showed gastritis. Patient's Celebrex was discontinued. Dose of PPI was doubled. Patient to continue on Xarelto. Abdominal pain much better before discharge. Today-discussed with the patient. Feeling better. Much improved all pain. Medications were discussed. The patient follow up with nephrology as an outpatient. Discussion and discharge planning more than 35 minutes Consultations: Dr. Sharp from GI Dr. Daniels from vascular On examination: VITAL SIGNS: 98.3, 81, 18, 133/88, 98% room air GENERAL APPEARANCE: Sitting in a chair, comfortable. HEENT: Normal external appearance of nose and ear. Oral cavity normal EYES: Pupils equal. Conjunctiva normal. NECK: JVD not raised. Mass not palpable. RESPIRATORY: Respiratory effort normal. Lungs clear to auscultation. CARDIOVASCULAR: First and second sounds normal. No edema. ABDOMEN: Soft. Minimal Epigastric tenderness, no guarding or rigidity Liver and spleen not palpable. No mass palpable. PSYCHIATRY: Alert and oriented x3. Mood and affect normal. INVESTIGATIONS, reviewed in the clinical context: White count 7 hemoglobin 13.6 potassium 3.9 creatinine 1.24 Previous testing: CT abdomen pelvis with contrast-focal plaque causing complete occlusion of left renal artery and atrophic left kidney -Doppler ultrasound left lower extremity negative for DVT EKG tracing personally reviewed by me-no sinus rhythm EGD-evidence of gastritis Assessment: -Acute epigastric pain from acute and chronic gastritis secondary to NSAIDs. Also patient is on Xarelto. 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 -Chronic kidney disease stage III possibly nephrosclerosis -GERD -Hyperlipidemia -Essential hypertension -Rheumatoid arthritis -Anxiety depression otherwise specified -Chronic kidney disease, stage III from left kidney atrophy Disposition: Home Patient Condition at Discharge: Stable Plan - Discharge Summary Discharge Rx Participant: No New Discharge Prescriptions: New amLODIPine [Norvasc] 10 mg PO HS #30 tab Continue Methotrexate Sodium [Methotrexate] 15 mg PO FR Hydrocodone/Acetaminophen [Hydrocodone/Acetaminophen 10-325] 1 tab PO Q6H PRN PRN Reason: Pain Rivaroxaban [Xarelto] 20 mg PO DAILY FLUoxetine HCL [PROzac] 20 mg PO DAILY #30 cap Metoprolol Succinate [Toprol XL] 25 mg PO DAILY ALPRAZolam [Xanax] 0.25 mg PO Q8HR PRN PRN Reason: Anxiety Atorvastatin [Lipitor] 20 mg PO HS predniSONE 2.5 mg PO DAILY Temazepam [Restoril] 15 mg PO HS PRN PRN Reason: Insomnia Ondansetron Odt [Zofran ODT] 8 mg PO Q8HR Cyclobenzaprine [Flexeril] 10 mg PO HS Changed Omeprazole 40 mg PO BID #60 cap Discontinued Sucralfate [Carafate] 1 gm PO QID PRN PRN Reason: ULCERS Celecoxib [CeleBREX] 200 mg PO BID Discharge Medication List Hydrocodone/Acetaminophen [Hydrocodone/Acetaminophen 10-325] 1 tab PO Q6H PRN 10/30/14 [History] Methotrexate Sodium [Methotrexate] 15 mg PO FR 10/30/14 [History] Rivaroxaban [Xarelto] 20 mg PO DAILY 03/30/18 [History] FLUoxetine HCL [PROzac] 20 mg PO DAILY #30 cap 04/01/18 [Rx] ALPRAZolam [Xanax] 0.25 mg PO Q8HR PRN 10/07/19 [History] Atorvastatin [Lipitor] 20 mg PO HS 10/07/19 [History] Cyclobenzaprine [Flexeril] 10 mg PO HS 10/07/19 [History] Metoprolol Succinate [Toprol XL] 25 mg PO DAILY 10/07/19 [History] Ondansetron Odt [Zofran ODT] 8 mg PO Q8HR 10/07/19 [History] Temazepam [Restoril] 15 mg PO HS PRN 10/07/19 [History] predniSONE 2.5 mg PO DAILY 10/07/19 [History] Omeprazole 40 mg PO BID #60 cap 10/10/19 [Rx] amLODIPine [Norvasc] 10 mg PO HS #30 tab 10/10/19 [Rx] Follow up Appointment(s)/Referral(s): Romel Pham MD [Primary Care Provider] - 10/16/19 11:00 am Rush House DO [STAFF PHYSICIAN] - 10/30/19 10:40 am (Please fill out paperwork that office mails to you and bring to follow up appointment. ) Jayesh Chinchilla MD [STAFF PHYSICIAN] - 11/28/19 2:30 pm Patient Instructions/Handouts: Diet for Stomach Ulcers and Gastritis (ED), Hypertension (DC), Upper Endoscopy (DC) Discharge Disposition: HOME SELF-CARE
[2019-10-11] MEDS ORDERED: METHOTREXATE SODIUM 2.5 MG TAB PO SCH (09:00)
== END 2019-10-10 14:11 | disposition home or self-care (01) | DRG 392 ==
LOC: EC 16:45 → 3SCARD 19:30
PROVIDERS: ADMIT Hospitalist; ATTEND Hospitalist
PROC: 0DB78ZX Excision of Stomach, Pylorus, Via Natural or Artificial Opening Endoscopic, Diagnostic (ICD-10-PCS; 2019-10-09)
PROC: 0DB48ZX Excision of Esophagogastric Junction, Via Natural or Artificial Opening Endoscopic, Diagnostic (ICD-10-PCS; 2019-10-09)
PROC: 0DB98ZX Excision of Duodenum, Via Natural or Artificial Opening Endoscopic, Diagnostic (ICD-10-PCS; principal; 2019-10-09 07:30)
DX: K29.00 Acute gastritis without bleeding (principal); N17.9 Acute kidney failure, unspecified; I16.0 Hypertensive urgency; M06.9 Rheumatoid arthritis, unspecified; K21.9 Gastro-esophageal reflux disease without esophagitis; N18.3 Chronic kidney disease, stage 3 (moderate); I12.9 Hypertensive chronic kidney disease with stage 1 through stage 4 chronic kidney disease, or unspecified chronic kidney disease; E78.5 Hyperlipidemia, unspecified; N95.1 Menopausal and female climacteric states; F41.9 Anxiety disorder, unspecified; I70.1 Atherosclerosis of renal artery; R63.0 Anorexia; I70.0 Atherosclerosis of aorta; K58.1 Irritable bowel syndrome with constipation; F32.9 Major depressive disorder, single episode, unspecified; K29.50 Unspecified chronic gastritis without bleeding; T39.395A Adverse effect of other nonsteroidal anti-inflammatory drugs [NSAID], initial encounter; Z68.21 Body mass index [BMI] 21.0-21.9, adult; Z71.3 Dietary counseling and surveillance; Z79.01 Long term (current) use of anticoagulants; Z79.1 Long term (current) use of non-steroidal anti-inflammatories (NSAID); Z79.899 Other long term (current) drug therapy; Z79.52 Long term (current) use of systemic steroids; Z86.711 Personal history of pulmonary embolism; Z86.718 Personal history of other venous thrombosis and embolism; Z90.49 Acquired absence of other specified parts of digestive tract; Z98.51 Tubal ligation status; Z90.721 Acquired absence of ovaries, unilateral; Z87.19 Personal history of other diseases of the digestive system; Z98.890 Other specified postprocedural states; Z87.891 Personal history of nicotine dependence; Z80.6 Family history of leukemia; Z80.0 Family history of malignant neoplasm of digestive organs; Z83.2 Family history of diseases of the blood and blood-forming organs and certain disorders involving the immune mechanism
CPT/HCPCS: 36415; 43239; 74019; 74177; 80048; 80053; 81001; 83605; 85025; 85027; 85610; 85730; 88305; 93005; 93975; 99285

== ENCOUNTER → 2020-08-10 | Outpatient (CLI) | payer OTHER ==
--- NOTE | 2020-08-10 10:24 | CT ---
EXAMINATION TYPE: CT chest wo con DATE OF EXAM: 08/10/2020 COMPARISON: 05/19/2017 HISTORY: Weight loss. CT DLP: 119.6 mGycm, Automated exposure control for dose reduction was used. CONTRAST: Performed injected with 0 mL of Isovue 300. TECHNIQUE: Axial images were obtained at 5 mm thick sections. Reconstructed images are reviewed on Salesvue computer in the coronal plane. FINDINGS: Portion of the thyroid visualized is normal. No suspicious lung nodules or focal infiltrates are present. No enlarged mediastinal or hilar adenopathy is evident. The ascending aorta diameter at the level o f the main pulmonary artery is 3.7 cm. The main pulmonary artery diameter at the bifurcation is 2.5 cm. Small amount of coronary artery calcification is present. Limited CT sections are obtained through the upper abdomen. Abdomen is essentially unremarkable. IMPRESSIONS: 1. No suspicious acute abnormality CT chest. 2. No significant interval change
== END | disposition home or self-care (01) ==
LOC: RADCTMAIN 09:33
PROVIDERS: ATTEND Family Medicine
DX: R64 Cachexia (principal)
CPT/HCPCS: 71250

== ENCOUNTER → 2022-02-22 | Outpatient (CLI) | payer MEDICARE ==
--- NOTE | 2022-02-22 18:57 | BD ---
EXAMINATION TYPE: Axial Bone Density DATE OF EXAM: 02/22/2022 CLINICAL HISTORY: 66 years year old Female. ICD-10 CODE: M8588 OSTEOPENIA Height: 5 FT 4 1/2 IN Weight: 113 FRAX RISK QUESTIONS: Alcohol (3 or more units per day): NO Family History (Parent hip fracture): NO Glucocorticoids (More than 3mos): YES (Ex: prednisone, prednisolone, methylprednisolone, dexamethasone, and hydrocortisone). History of Fracture in Adulthood: NO Secondary Osteoporosis: 1. Type 1 Diabetes: NO 2. Hyperthyroidism: NO 3. Menopause before 45: YES 4. Malnutrition: NO 5. Chronic liver disease: NO Rheumatoid Arthritis: YES Current Tobacco Use: NO RISK FACTORS HISTORY OF: Surgery to Spine/Hip(right/left)/Wrist (right/left): NO Family History of Osteoporosis: NO Active: YES Diet low in dairy products/other sources of calcium: NO Postmenopausal woman: YES Take estrogen and/or progesterone medications: NO Lost more than 2 inches in height since high school: YES Frequent falls: NO Poor Health: GOOD Hyperparathyroidism: NO Adrenal Insufficiency: NO MEDICATIONS: Additional Medications: NORCO, FLEXERIL, XARELTO, AMLODIPINE, TEMAZEPAM, FOLIC ACID, PROZAC, LIPITOR, VIT D 3, CARAFATE, METHOTREXATE, METOPROLOL Additional History: EXAM MEASUREMENTS: Bone mineral densitometry was performed using the [employer]eline System. Bone mineral density as measured about the Lumbar spine is: ----- L1-L4(G/cm2): 1.048 T Score Values are as follows: ----- L1: -1.5 ----- L2: -1.4 ----- L3: -1.4 ----- L4: -0.5 ----- L1-L4: -1.1 Bone mineral density has: DECREASED -9.7 % since study of: 2014 Bone mineral density about the R hip (g/cm2): 0.732 Bone mineral density about the L hip (g/cm2): 0.679 T Score values are as follows: -----R Neck: -2.2 -----L Neck: -2.6 -----R Total: -2.1 -----L Total: -2.2 Bone mineral density has: DECREASED -17.7 % since study of: 2015 FRAX%s: The graph provided illustrates a 6.9 % chance for a major osteoporotic fx and a 2.8 % chance for the hips probability for fx in 10 years time. IMPRESSION: Osteoporosis (T Score less than -2.5). There is increased fracture risk and therapy is usually indicated based on age. Re-Screen 1-2 years. NOTE: T-SCORE=SD OF THE YOUNG ADULT MEAN.
--- NOTE | 2022-02-24 18:12 | MM ---
Reason for Exam: Screening (asymptomatic). Last mammogram was performed 3 year(s) and 1 month(s) ago. Patient History: Menarche at age 11. First Full-Term at age 17. Right ovary removed at age 44. Postmenopausal. Other cancer, age 55. Estrogen for 1 year until age 45. Progesterone for 1 year until age 45. Risk Values: Zoya 5 year model risk: 1.3%. NCI Lifetime model risk: 4.8%. Prior Study Comparison: 09/29/2014 Bilateral Screening Mammogram, [facility]. 07/15/2016 Bilateral Screening Mammogram, [facility]. 01/23/2019 Bilateral Screening Mammogram, [facility]. Tissue Density: The breast tissue is heterogeneously dense. This may lower the sensitivity of mammography. Findings: Analyzed By CAD. A few benign oil cyst calcifications bilaterally. Chronic nodularity posterior superior right MLO view. Possible distortion posterior lateral right CC view not well localized on the MLO view. This may represent superimposition shadow but further evaluation is recommended. Overall Assessment: Incomplete: need additional imaging evaluation, BI-RAD 0 Management: Special View Mammogram of the right breast. 1. Additional views right breast to include spot 3-D CC, 3-D CC rolled medial, and 3-D ML views. 2. Targeted right breast ultrasound if any persisting abnormality. Electronically signed and approved by: Myrna Munoz M.D. Radiologist
== END | disposition home or self-care (01) ==
LOC: RADMAMWWP 12:30
PROVIDERS: ATTEND Obstetrics & Gynecology
DX: Z12.31 Encounter for screening mammogram for malignant neoplasm of breast (principal); M81.0 Age-related osteoporosis without current pathological fracture; M85.89 Other specified disorders of bone density and structure, multiple sites; Z78.0 Asymptomatic menopausal state
CPT/HCPCS: 77063; 77067; 77080

== ENCOUNTER → 2022-03-03 | Outpatient (CLI) | payer MEDICARE ==
--- NOTE | 2022-03-03 15:54 | MM ---
Reason for Exam: Additional evaluation requested from abnormal screening. Last screening mammogram was performed less than 1 month ago. Patient History: Menarche at age 11. First Full-Term at age 17. Right ovary removed at age 44. Postmenopausal. Estrogen for 1 year until age 45. Progesterone for 1 year until age 45. Risk Values: Zoya 5 year model risk: 1.3%. NCI Lifetime model risk: 4.8%. Prior Study Comparison: 12/31/1996 Bilateral Screening Mammogram, [facility]. 12/08/1998 Bilateral Screening Mammogram, [facility]. 12/14/1999 Bilateral Screening Mammogram, [facility]. 12/20/1999 Right Special View Mammogram, [facility]. 02/14/2001 Bilateral Screening Mammogram, [facility]. 05/15/2002 Bilateral Screening Mammogram, [facility]. 05/30/2002 Left Special View Mammogram, [facility]. 11/28/2002 Left Special View Mammogram, [facility]. 06/02/2003 Bilateral Screening Mammogram, [facility]. 06/10/2003 Bilateral Special View Mammogram, [facility]. 12/09/2003 Right Special View Mammogram, [facility]. 06/21/2004 Bilateral Diagnostic Mammogram, [facility]. 07/26/2005 Bilateral Screening Mammogram, [facility]. 08/08/2005 Left Diagnostic Mammogram, [facility]. 09/26/2006 Bilateral Screening Mammogram, [facility]. 09/27/2007 Bilateral Screening Mammogram, [facility]. 01/05/2009 Bilateral Screening Mammogram, [facility]. 01/29/2010 Bilateral Screening Mammogram, [facility]. 04/04/2011 Bilateral Screening Mammogram, [facility]. 05/15/2012 Bilateral Screening Mammogram, [facility]. 05/21/2012 Bilateral Diagnostic Mammogram, [facility]. 12/31/2012 Right Diagnostic Mammogram, [facility]. 07/15/2013 Bilateral Screening Mammogram, [facility]. 09/29/2014 Bilateral Screening Mammogram, [facility]. 07/15/2016 Bilateral Screening Mammogram, [facility]. 01/23/2019 Bilateral Screening Mammogram, [facility]. 02/22/2022 Bilateral MG 3D screening mammo w/cad, [facility]. Tissue Density: Right: The breast tissue is heterogeneously dense. This may lower the sensitivity of mammography. Findings: Analyzed By CAD. No persistent suspicious abnormality right breast under compression. Mediolateral view appears normal. Precautionary 6 month follow-up can be performed. Overall Assessment: Probably benign, BI-RAD 3 Management: Diagnostic Mammogram of the right breast in 6 months. A clinical breast exam by your physician is recommended on an annual basis and results should be correlated with mammographic findings. This exam should not preclude additional follow-up of suspicious palpable abnormalities. Results were given to the patient verbally at the time of exam. Electronically signed and approved by: Yovanny Abreu D.O. Radiologis
== END | disposition home or self-care (01) ==
LOC: RADMAMWWP 08:58
PROVIDERS: ATTEND Obstetrics & Gynecology
DX: R92.8 Other abnormal and inconclusive findings on diagnostic imaging of breast (principal); Z78.0 Asymptomatic menopausal state
CPT/HCPCS: 77065; G0279; 77061

== ENCOUNTER → 2022-10-04 | Outpatient (CLI) | payer MEDICARE ==
--- NOTE | 2022-10-07 09:56 | MM ---
Reason for Exam: Follow-up at short interval from prior study. Last screening mammogram was performed 7 month(s) ago. Patient History: Menarche at age 11. First Full-Term at age 17. Right ovary removed at age 44. Postmenopausal. Estrogen for 1 year until age 45. Progesterone for 1 year until age 45. Risk Values: Zoya 5 year model risk: 1.3%. NCI Lifetime model risk: 4.8%. Prior Study Comparison: 01/23/2019 Bilateral Screening Mammogram, [facility]. 02/22/2022 Bilateral MG 3D screening mammo w/cad, [facility]. 03/03/2022 Right MG 3D work up w/cad RT, [facility]. Tissue Density: Right: The breast tissue is heterogeneously dense. This may lower the sensitivity of mammography. Findings: Analyzed By CAD. We note that the patient had weight loss between the intervals of 2018 and 2021. This likely accounts for the areas of increased asymmetric density laterally in the anterior depth and at a posterior depth. Anteriorly, the density completely disperses. Given the stable appearance, superimposition shadow is suggested. Additional benign oil cyst calcifications are present. Ongoing short interval follow-up recommended. Overall Assessment: Probably benign, BI-RAD 3 Management: Diagnostic Mammogram of both breasts in 6 months. 1. Total one-year follow-up right breast and annual exam of the left breast. 2. Patient should continue monthly self breast exams. 3. This exam should not preclude additional follow-up of suspicious palpable abnormalities. Results were given to the patient verbally at the time of exam. Electronically signed and approved by: Myrna Munoz M.D. Radiologist
== END | disposition home or self-care (01) ==
LOC: RADMAMWWP 13:30
PROVIDERS: ATTEND Family Medicine
DX: R92.8 Other abnormal and inconclusive findings on diagnostic imaging of breast (principal); Z78.0 Asymptomatic menopausal state
CPT/HCPCS: 77065; G0279; 77061

== ENCOUNTER → 2023-03-21 | Outpatient (CLI) | payer MEDICARE ==
--- NOTE | 2023-03-21 11:22 | US ---
EXAMINATION TYPE: US arterial LE single level DATE OF EXAM: 03/21/2023 10:46 AM CLINICAL INDICATION: Female, 67 years old with history of I73.9 PERIPHERAL VASCULAR DISEASE; Peripher al vascular disease. *Toe discoloration. Patient states her toes feel like there is a rubber band mireya und them at times. History of: Smoker: Previous Hypertension: Yes Diabetic: No Hyperlipidemia: Yes TIA/CVA: No Previous Vascular Surgery: No CAD: No MS: No Vascular Ulcers: None Claudication: None Gangrene: No Doppler Waveforms: Right: Biphasic Left: Biphasic Right Brachial Pressure: 167 Left Brachial Pressure: 156 Ankle-Brachial Indices: Right: 1.04 Left: 1.09 Toe Brachial Indices: Right: 0.75 Left: 0.65 (Vessel hardening > 1.4; Normal 0.9 - 1.4, Moderate 0.7 - 0.9, Severe 0.5-0.7) IMPRESSION: Normal bilateral ankle brachial indices however there are decreased toe brachial indices suggestive o f peripheral vascular disease moderate to severe bilaterally.
== END | disposition home or self-care (01) ==
LOC: RADUSWWP 10:04
PROVIDERS: ATTEND Family Medicine
DX: I73.9 Peripheral vascular disease, unspecified (principal)
CPT/HCPCS: 93922

== ENCOUNTER → 2023-03-29 | Outpatient (CLI) | payer MEDICARE ==
--- NOTE | 2023-03-29 10:04 | MM ---
Reason for Exam: Follow-up at short interval from prior study. Last mammogram was performed 1 year(s) and 1 month(s) ago. Patient History: Menarche at age 11. First Full-Term at age 17. Right ovary removed at age 44. Postmenopausal. Estrogen for 1 year until age 45. Progesterone for 1 year until age 45. Risk Values: Zoya 5 year model risk: 1.3%. NCI Lifetime model risk: 4.6%. Tissue Density: The breast tissue is heterogeneously dense. This may lower the sensitivity of mammography. Findings: Analyzed By CAD. Focal asymmetry in the anterior right breast is stable from recent comparisons. No persistent distortion. No suspicious groups of microcalcifications, spiculated or lobular masses, architectural distortion or other secondary signs of malignancy are mammographically apparent. Overall Assessment: Benign, BI-RAD 2 Management: Screening Mammogram of both breasts in 1 year. A negative mammogram report should not preclude additional follow up of suspicious palpable abnormalities. Patient should continue monthly self breast exam. A clinical breast exam by your physician is recommended on an annual basis and results should be correlated with mammographic findings. Electronically signed and approved by: Yovanny Abreu D.O. Radiologis
== END | disposition home or self-care (01) ==
LOC: RADMAMWWP 09:37
PROVIDERS: ATTEND Obstetrics & Gynecology
DX: R92.8 Other abnormal and inconclusive findings on diagnostic imaging of breast (principal); Z78.0 Asymptomatic menopausal state
CPT/HCPCS: 77066; G0279; 77062

== ENCOUNTER → 2024-09-16 | Outpatient (CLI) | payer MEDICARE ==
--- NOTE | 2024-09-17 08:28 | MM ---
Reason for Exam: Screening (asymptomatic). Last mammogram was performed 1 year(s) and 6 month(s) ago. Patient History: Menarche at age 11. First Full-Term at age 17. Right ovary removed at age 44. Postmenopausal. Patient used Hormonal Contraceptives for 5 years. Risk Values: Zoya 5 year model risk: 1.4%. NCI Lifetime model risk: 4.4%. Prior Study Comparison: 03/03/2022 Right MG 3D work up w/cad RT, [facility]. 10/04/2022 Right MG 3D diag mammo w/cad RT, [facility]. 03/29/2023 Bilateral MG 3D diag mammo w/cad [facility], [facility]. Tissue Density: The breasts are heterogeneously dense, which may obscure small masses. Findings: Analyzed By CAD. Right breast: There is no suspicious group of microcalcifications or new suspicious mass. Benign-appearing calcifications right breast. Left breast: There is no suspicious group of microcalcifications or new suspicious mass. Benign-appearing calcifications left breast. Overall Assessment: Benign, BI-RAD 2 Management: Screening Mammogram of both breasts in [address] [facility] will attempt to contact patient to return for supplemental views and ultrasound if indicated. Patient should continue monthly self-breast exams. A clinical breast exam by your physician is recommended on an annual basis. This exam should not preclude additional follow-up of suspicious palpable abnormalities. Note on Zoya scores and lifetime risk: 1. A Zoya score greater than 3% is considered moderate risk. If this is the case, consider specialist referral to assess eligibility for a risk reducing agent. 2. If overall lifetime risk for the development of breast cancer is 20% or higher, the patient may qualify for future screening with alternating mammogram and breast MRI. [facility], , 09/17/2024 8:25 AM. Electronically signed and approved by: Don Lujan DO
--- NOTE | 2024-09-17 11:46 | BD ---
EXAMINATION TYPE: Axial Bone Density DATE OF EXAM: 09/16/2024 CLINICAL HISTORY: 68 years old Female. ICD-10 CODE: Z78.0 menopause , Additional History: Height: 65 Weight: 128 FRAX RISK QUESTIONS: Alcohol (3 or more units per day): no Family History (Parent hip fracture): no Glucocorticoids (More than 3mos): no (Ex: prednisone, prednisolone, methylprednisolone, dexamethasone, and hydrocortisone). History of Fracture in Adulthood: no Secondary Osteoporosis: 1. Type 1 Diabetes: no 2. Hyperthyroidism: no 3. Menopause before 45: yes 4. Malnutrition: no 5. Chronic liver disease: no Rheumatoid Arthritis: yes Current Tobacco Use: no RISK FACTORS HISTORY OF: Surgery to Spine/Hip(right/left)/Wrist (right/left): no EXAM MEASUREMENTS: Bone mineral densitometry was performed using the [employer]. Bone mineral density as measured about the Lumbar spine is: ----- L1-L4(G/cm2): 1.005 T Score Values are as follows: ----- L1: -2.1 ----- L2: -1.8 ----- L3: -1.2 ----- L4: -1.2 ----- L1-L4: -1.5 Z Score Values are as follows: ----- L1: -0.3 ----- L2: 0.1 ----- L3: 0.7 ----- L4: 0.7 ----- L1-L4: 0.4 Bone mineral density has: decreased -4.1 % since study of: 02.22.2022 Bone mineral density about the R hip (g/cm2): 0.716 Bone mineral density about the L hip (g/cm2): 0.718 T Score values are as follows: -----R Neck: -2.4 -----L Neck: -2.9 -----R Total: -2.3 -----L Total: -2.3 Z Score values are as follows: -----R Neck: -0.7 -----L Neck: -1.1 -----R Total: -0.8 -----L Total: -0.7 Bone mineral density has: decreased -3.0 % since study of: 6.14.2021 FRAX%s: The graph provided illustrates a 20.3% chance for a major osteoporotic fx and a 6.8% chance f or the hips probability for fx in 10 years time. IMPRESSION: Osteoporosis (T Score less than -2.5). There is increased fracture risk and therapy is usually indicated based on age. Re-Screen 1-2 years. NOTE: T-SCORE=SD OF THE YOUNG ADULT MEAN. [facility], , 09/17/2024 11:44 AM
== END | disposition home or self-care (01) ==
LOC: RADMAMWWP 15:44
PROVIDERS: ATTEND Family Medicine
DX: Z12.31 Encounter for screening mammogram for malignant neoplasm of breast (principal); Z78.0 Asymptomatic menopausal state; Z90.721 Acquired absence of ovaries, unilateral; R92.333 Mammographic heterogeneous density, bilateral breasts; M81.8 Other osteoporosis without current pathological fracture
CPT/HCPCS: 77063; 77067; 77080